=== PATIENT | female | born 1980 | race Native Hawaiian/Other Pacific Islander ===

== ENCOUNTER 2020-04-25 15:52 | Emergency (ER) | payer OTHER, SELFPAY ==
--- NOTE | ~2020-04-25 | CT_ITS ---
EXAMINATION: NONCONTRAST HEAD CT NONCONTRAST MAXILLOFACIAL CT NONCONTRAST CERVICAL SPINE CT INDICATION INFORMATION: Drinking. Fall. COMPARISON: None TECHNIQUE: Separate noncontrast CT examinations of the head, maxillofacial bones, and cervical spine were performed. Coronal and sagittal images were created for each examination at the technologist workstation. This CT examination was performed using dose optimization techniques as appropriate, variously including the following: *Automated exposure control *Adjustment of mA and/or kV according to patient size (this includes techniques or standardized protocols for targeted exams where dose is matched to indication/reason for exam; i.e. extremities or head) *Use of iterative reconstruction technique DLP: 1322 mGy-cm FINDINGS: Head: There is no evidence of acute intracranial hemorrhage or territorial infarction. No abnormal mass effect or midline shift is seen. [place] to white matter differentiation is well preserved. No extra-axial fluid collections are identified. No hydrocephalus. No significant volume loss. There is no abnormal attenuation within the brain parenchyma. No acute soft tissue abnormality. No calvarial fracture. The mastoid air cells are well aerated. Maxillofacial: There is left premaxillary soft tissue swelling. There is depression of the left lamina papyracea. No priors are available to compare for chronicity, but this is likely a chronic finding. The orbital rim appears intact. The pterygoid plates are intact. The zygomatic arches are intact. The nasal bone is intact. There is moderate opacification of the left maxillary sinus with severe opacification of the right maxillary sinus. The remaining paranasal sinuses are well aerated. The uncinate process is normal bilaterally. The infundibula are occluded bilaterally.. The nasal septum deviates to the right. The mandibular heads are well-seated in the condylar fossa. The orbits demonstrate a normal appearance bilaterally. The globes are intact, and there are no suspicious findings to suggest retrobulbar hemorrhage. Cervical spine: There is anatomic alignment of the vertebral bodies and posterior elements. The atlantoaxial and atlantooccipital articulations are intact. Vertebral body heights are maintained. There is mild disc space narrowing at C5-C6. Remaining disc spaces are maintained. No evidence of acute fracture. No prevertebral soft tissue swelling. Mild paraseptal emphysema at the lung apices.. The thyroid gland is unremarkable. CT/CT cervical spine wo con IMPRESSION: 1. No acute intracranial findings. 2. Left premaxillary soft tissue swelling. No definite acute maxillofacial fracture. There is depressed appearance of the left lamina papyracea which is likely chronic. 3. No fracture or malalignment of the cervical spine.
[2020-04-25 15:55] VITALS: BP 139/92; PULSE 88; RESP 16; TEMP 36.7; O2SAT 100; BMI 23.2
--- NOTE | 2020-04-25 16:08 | PC.NURSE ---
pt has been ambulatory in waiting area with steady gait and answers questions appropriately.
--- NOTE | 2020-04-25 22:35 | ED_ITS ---
HPI - General Adult General Chief complaint: ETOH/Substance Use Stated complaint: etoh Source: patient Mode of arrival: ambulatory Limitations: no limitations History of Present Illness HPI narrative: Patient presents to the ED for drinking alcohol. patient admits to drinking alcohol and falling unto her face. patient does not want detox. Patient denies any other complants. Related Data Allergies Allergy/AdvReac Type Severity Reaction Status Date / Time acetaminophen [From TYLENOL] Allergy Severe ANAPHYLAXIS Unverified 11/13/19 14:58 Penicillins [PENICILLINS] Allergy Severe HIVES Unverified 11/13/19 14:58 Review of Systems Review of Systems: Yes all other systems are reviewed and are negative Constitutional: Constitutional: Reports as per HPI and Reports no additional constitutional complaints Eyes: Eyes: Reports as per HPI and Reports no additional eye complaints Cardiovascular: Cardiovascular: Reports as per HPI and Reports no additional cardiovascular complaints Respiratory: Respiratory: Reports as per HPI and Reports no additional respiratory complaints Gastrointestinal: Gastrointestinal: Reports as per HPI and Reports no additional gastrointestinal complaints Genitourinary: Genitourinary: Reports no additional female genitourinary complaints and Reports as per HPI Musculoskeletal: Musculoskeletal: Reports no additional musculoskeletal complaints and Reports as per HPI Neurologic: Reports system reviewed and no additional complaints, except as documented and Reports as per HPI Psychiatric: Psychiatric: Reports no additional psychiatric complaints and Reports as per HPI PMF Past Medical History Medical History Seizures Skin cancer Social History Social History Alcohol intake: current Alcohol intake frequency: a few times a week Smoking Status: Unknown if ever smoked Use of substances other than those prescribed or required for medical reasons: Unknown Advance Directives: No Advance Directives Information Provided: No Physical Exam Vital Signs: Vital Signs: Last Vital Signs Temp 98.0 F 04/26/20 00:00 Pulse 84 04/26/20 00:00 Resp 16 04/26/20 00:00 BP 139/92 H 04/26/20 00:00 Pulse Ox 100 04/26/20 00:00 Body Mass Index 23.2 Const: General: cooperative, healthy appearing, comfortable, no acute distress, well developed, alert, awake and Physically active Orientation/consciousness: patient oriented x3 HENMT: Head: Yes normal to inspection, Yes No palpable skull fracture present, Yes normocephalic, Yes abrasion, No Badillo's sign, No contusion, No cranial bruits, No hematoma, No laceration, No occipital foramen tenderness, No palpable skull fracture, No raccoon eyes, No scalp lesion, No scalp tenderness, No Temporal artery tenderness present and No periorbital ecchymosis Ears: hearing grossly normal bilaterally, external ears normal and TM's normal bilaterally General nose exam: Normal external nose present and Normal nares present Face and sinus: Yes normal facial exam, Yes sinuses nontender and Yes face symmetric Throat: Yes posterior oropharynx normal, Yes tonsils normal and Yes uvula midline Eyes: General: appearance normal, both eyes and all related structures Neck: Neck: Yes normal visual inspection, Yes full ROM, Yes no lymphadenopathy, Yes no meningeal signs, Yes trachea midline, Yes supple and No tender Chest: Chest palpation & inspection: normal inspection of the chest and normal palpation of entire chest wall Resp: Effort & Inspection: normal respiratory effort and able to speak in complete sentences Cardio: Jugular venous distension: no JVD Heart sounds: S1 normal heart sound present and S2 normal heart sound present GI: Inspection: No abdominal wall ecchymosis Palpation (GI): Soft to palpation, not firm, nontender, no guarding and not rigid : General: No CVA tenderness and Yes no CVA tenderness Back/Spine/Pelvis: Back: no CVA tenderness, No CVA tenderness and No back tenderness Skin: General skin exam: no rashes or lesions noted and elasticity normal Neuro: General: patient oriented x3, no meningeal signs and CN's II-XI intact bilaterally Cranial nerves: Yes CN's II-XII intact bilaterally Extrem: General: Yes normal to inspection and Yes full ROM Psych: Appearance: grossly normal, well kempt and not disheveled Course Course Course Narrative: Will send patient to imaging to rule out any intracranial, cervical, or facial injury. Reevaluation(s) Reevaluation #1: images came back negative for any acute intracranial, facial, or cervical injury. patient presently is A0x3 and ready for discharge Time: 23:48 Reevaluation #2: patient was informed that she was discharged and than states she would like to recieve a covid test due to her ear pain and sore thorat. Case signed out to Dr. Suárez Time: 01:35 Medical Decision Making [facility] Narrative Medical decision making narrative: alcohol abuse Discharge Plan Discharge Clinical Impression: Alcohol abuse Patient Disposition: Home, Self-Care Instructions: Abuse of Alcohol (ED) Additional Instructions: Return to the ED for headache, dizziness, vomitting blood, abdominal pain, neck pain, rectal bleeding, chest pain, or any other concerning symptoms. Please follow up with PCP Referrals: Loyd Kulkarni DO, MD [Primary Care Provider] - 2 days (Alcohol abuse) Interventions: ED Discharge Assessment Last Done: 04/26/20 00:44 Print Language: Hungarian
[2020-04-26] VITALS: BP 139/92; PULSE 16; PULSE 84; RESP 16; TEMP 36.7; O2SAT 100
[2020-04-26 02:00] VITALS: RESP 14
[2020-04-26 03:43] LABS: COVID-19 Test Negative (Negative)
== END 2020-04-26 03:30 | disposition home or self-care (01) ==
PROVIDERS: Physician Assistant; Emergency Provider Internal Medicine; PCP Internal Medicine
DX: F10.10 Alcohol abuse, uncomplicated (principal); M54.2 Cervicalgia; R51.9 Headache, unspecified; G50.1 Atypical facial pain; Y90.9 Presence of alcohol in blood, level not specified; Z20.822 Contact with and (suspected) exposure to COVID-19
CPT/HCPCS: 36415; 70450; 70486; 72125; 87635; 99285

== ENCOUNTER 2020-05-29 10:32 | Emergency (ER) | payer OTHER, SELFPAY ==
[2020-05-29 11:10] VITALS: BP 136/97; PULSE 90; RESP 18; TEMP 37.1; O2SAT 97; BMI 27.3
--- NOTE | 2020-05-29 11:16 | ED.GENADULT ---
HPI - General Adult General Chief complaint: Extremity Problem Stated complaint: HANDS SWELLING Time Seen by Provider: 05/29/20 11:16 History of Present Illness HPI narrative: Patient complains of some intermittent mild swelling of both hands and both feet over past 3 days, she has 1 kidney and was not sure what is causing the swelling and wants to be checked, she denies fever denies chills denies calf pain or swelling denies shortness of breath, no other symptom or complaint except the intermittent hand and foot swelling Related Data Allergies Allergy/AdvReac Type Severity Reaction Status Date / Time acetaminophen [From TYLENOL] Allergy Severe ANAPHYLAXIS Unverified 11/13/19 14:58 Penicillins [PENICILLINS] Allergy Severe HIVES Unverified 11/13/19 14:58 Review of Systems Review of Systems: Positive for mild intermittent bilateral hand and foot swelling negatives are no fever no chills no dizziness no weakness no confusion no headache no neck pain no numbness weakness or tingling no chest pain no shortness of breath no abdominal pain no nausea or vomiting no changes to bowel or bladder there is no urinary frequency no burning with urination no incontinence, no rash, no numbness or weakness Yes all other systems are reviewed and are negative PMFSH Past Medical History Source: nursing notes reviewed Medical History (Updated 06/01/20 @ 00:01 by Lashonda Hammonds) Seizures Skin cancer Surgical History (Updated 05/29/20 @ 11:13 by Michael Galvez) History of nephrectomy, left Social History Social History Alcohol intake: unknown Smoking Status: Unknown if ever smoked Use of substances other than those prescribed or required for medical reasons: Unknown Advance Directives: Yes Advance Directives Information Provided: No Advance Directives on File: No Physical Exam Vital Signs: Vital Signs: Last Vital Signs Temp 98.7 F 05/29/20 11:10 Pulse 90 05/29/20 11:10 Resp 18 05/29/20 11:10 BP 136/97 H 05/29/20 11:10 Pulse Ox 97 05/29/20 11:10 Body Mass Index 27.3 General appearance is no acute distress, come and cooperative A&O x3 Head is normocephalic atraumatic Neck is supple and nontender The chest is clear to auscultation bilaterally The heart no murmur auscultated Abdomen soft nontender Extremities, swelling in hands and feet was not obvious to me there were both symmetrical hands and feet all joints had full range of motion, there is no redness no warmth, vascular was normal in both with symmetric pulses in both feet and both wrists, cap refill normal in both feet and both hands, sensation was full intact and symmetrical in both hands and feet, and motor function was full with 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 Result diagrams: 05/29/20 11:31 05/29/20 11:31 Labs: Lab Results 05/29/20 05/29/20 05/29/20 Range/Units 11:31 11:31 11:31 WBC 8.7 (4.8-10.8) X10*3/uL RBC 4.26 (4.20-5.50) X10*6/uL Hgb 13.8 (12.0-16.0) g/dl Hct 41.6 (37-47) % MCV 97.7 (80-98) fL MCH 32.4 (27.0-33.0) pg MCHC 33.2 (31.0-35.0) g/dl RDW 13.6 (11.0-16.0) % Plt Count 384 (160-400) X10*3/uL MPV 9.1 L (9.4-12.3) fL Immature Gran % (Auto) 0.1 (0.0-0.4) % Neut % (Auto) 63.0 (45-73) % Lymph % (Auto) 23.5 (20-40) % [place] % (Auto) 11.3 H (2-11) % Eos % (Auto) 1.2 (0-4) % Baso % (Auto) 0.9 (0-2) % Lymph # (Auto) 2.0 (1.2-4.9) X10*3/uL [place] # (Auto) 1.0 (0.1-1.2) X10*3/uL Eos # (Auto) 0.1 (0.0-0.4) X10*3/uL Baso # (Auto) 0.1 (0.0-0.2) X10*3/uL Abs Immat Gran (auto) 0.01 (0.00-0.03) X10*3/uL Absolute Neuts (auto) 5.5 (2.0-8.3) X10*3/uL Absolute Nucleated RBC 0.000 (0.0-0.012) X10*3/uL Nucleated RBC % (auto) 0.0 (0.0-0.2) /100WBC Sodium 133 L (135-145) mmol/L Potassium 4.4 (3.3-5.1) mmol/L Chloride 100 (96-108) mmol/L Carbon Dioxide 21 L (22-29) mmol/L Anion Gap 16 (12-20) BUN 10 (9-16) mg/dL Creatinine 0.82 (0.5-1.4) mg/dL Estim Creat Clear Calc 75.1 Estimated GFR > 60 Random Glucose 69 (60-115) mg/dL Calcium 9.6 (8.4-10.2) mg/dL Total Bilirubin 0.5 (0.0-1.0) mg/dL Direct Bilirubin < 0.2 (0.0-0.5) mg/dL AST 43 H (5-31) U/L ALT 24 (0-31) U/L Alkaline Phosphatase 84 (39-117) U/L Total Protein 7.3 (6.5-8.0) g/dL Albumin 4.3 (3.5-5.0) g/dL Urine Test NEGATIVE (NEGATIVE) Discharge Plan Discharge Clinical Impression: Bilateral swelling of feet, Bilateral hand swelling Patient Disposition: Home, Self-Care Additional Instructions: Testing today showed normal kidney function, normal liver function and no acute abnormality to explain the intermittent swelling Her exam today was normal and there does not seem to be anything dangerous or emergent today Follow routinely with her doctor Return to ER any time any worse condition or any concerns Discharge Date/Time: 05/29/20 12:29
[2020-05-29 11:36] LABS: MANUAL DIFF FLAG NO
[2020-05-29 11:39] LABS: Basophils Absolute Auto 0.1 X10*3/uL (0.0-0.2); Basophils Percent Auto 0.9 % (0-2); Eosinophils Absolute Auto 0.1 X10*3/uL (0.0-0.4); Eosinophils Percent Auto 1.2 % (0-4); Hematocrit 41.6 % (37-47); Hemoglobin 13.8 g/dl (12.0-16.0); Imm Gran Abs Auto 0.01 X10*3/uL (0.00-0.03); Imm Gran Pct Auto 0.1 % (0.0-0.4); Lymphocytes Percent Auto 23.5 % (20-40); Mean Corpuscular HGB Conc 33.2 g/dl (31.0-35.0); Mean Corpuscular Hemoglobin 32.4 pg (27.0-33.0); Mean Corpuscular Volume 97.7 fL (80-98); Mean Platelet Volume 9.1 fL (9.4-12.3); Monocytes Percent Auto 11.3 % (2-11); Neutrophils Absolute Auto 5.5 X10*3/uL (2.0-8.3); Platelet Count 384 X10*3/uL (160-400); Red Blood Count 4.26 X10*6/uL (4.20-5.50); Red Cell Distribution Width 13.6 % (11.0-16.0); White Blood Count 8.7 X10*3/uL (4.8-10.8)
[2020-05-29 11:40] LABS: UPreg QC Valid YES; Urine Pregnancy NEGATIVE (NEGATIVE)
[2020-05-29 12:08] LABS: Alanine Aminotransferase 24 U/L (0-31); Albumin Level 4.3 g/dL (3.5-5.0); Alkaline Phosphatase 84 U/L (39-117); Anion Gap 16 (12-20); Aspartate Amino Transferase 43 U/L (5-31); Bilirubin Direct < 0.2 mg/dL (0.0-0.5); Bilirubin Total 0.5 mg/dL (0.0-1.0); Blood Urea Nitrogen 10 mg/dL (9-16); Calcium 9.6 mg/dL (8.4-10.2); Carbon Dioxide 21 mmol/L (22-29); Chloride 100 mmol/L (96-108); Creatinine Clr Calc Pharmacy 75.1; Estimated Glomerular Filt Rate > 60; Glucose Random 69 mg/dL (60-115); Potassium 4.4 mmol/L (3.3-5.1); Sodium 133 mmol/L (135-145); Total Protein 7.3 g/dL (6.5-8.0)
== END 2020-05-29 12:29 | disposition home or self-care (01) ==
PROVIDERS: Physician Assistant Medical; Emergency Provider Emergency Medicine
DX: M79.89 Other specified soft tissue disorders (principal); Z90.5 Acquired absence of kidney; Z85.828 Personal history of other malignant neoplasm of skin
CPT/HCPCS: 36415; 80048; 80076; 81025; 85025; 99283

== ENCOUNTER 2020-09-18 12:44 | Observation (INO) | payer OTHER, SELFPAY ==
--- NOTE | ~2020-09-18 | US_ITS ---
EXAMINATION: US ABDOMEN LIMITED CLINICAL INFORMATION: Abnormal liver function tests. COMPARISON: No priors. TECHNIQUE: Real-time imaging of the right upper quadrant abdominal viscera. FINDINGS: PANCREAS: Obscured by bowel gas. LIVER: The liver is normal in size. The liver contour is normal. Parenchymal echogenicity is mildly increased. No focal hepatic lesion. There is no intrahepatic biliary duct dilatation seen. GALLBLADDER: Normal. The gallbladder is physiologically distended without evidence of stones, sludge, polyps, wall thickening or pericholecystic fluid. COMMON BILE DUCT: Normal in caliber measuring 0.2 cm in diameter. RIGHT KIDNEY: Normal. No hydronephrosis. No renal calculi or focal parenchymal lesions. The kidney measures 12.5 cm in maximum dimension. FREE FLUID: None. US/US abdomen limited IMPRESSION: --Mildly increased hepatic parenchymal echogenicity which may reflect steatotic changes. --Normal sonographic appearance of the gallbladder. No intrahepatic or extra hepatic biliary ductal dilation.
[2020-09-18 12:51] VITALS: PULSE 77; RESP 18; TEMP 36.6; O2SAT 99; BMI 28.3
--- NOTE | 2020-09-18 14:49 | ED.GENADULT ---
HPI - General Adult General Chief complaint: Recheck/Abnormal Lab/Rx Stated complaint: liver issue Time Seen by Provider: 09/18/20 14:35 Source: patient Mode of arrival: ambulatory Limitations: no limitations History of Present Illness HPI narrative: 40-year-old female with long history of alcohol abuse, patient just discharged from rehab (last drink was 7 days ago). Patient had labs was done at outside facility showed abnormal LFTs, patient was concerned come back again today to check on her liver function test. Patient otherwise decline headache, chest pain, abdominal pain, nausea, or vomiting. No fever or chills. Related Data Allergies Allergy/AdvReac Type Severity Reaction Status Date / Time acetaminophen [From TYLENOL] Allergy Severe ANAPHYLAXIS Unverified 11/13/19 14:58 Penicillins [PENICILLINS] Allergy Severe HIVES Unverified 11/13/19 14:58 Review of Systems Review of Systems: All other systems are reviewed and are negative Constitutional: Reports as per HPI and Reports no additional constitutional complaints Eyes: Reports as per HPI and Reports no additional eye complaints Reports system reviewed and no additional complaints, except as documented Cardiovascular: Reports as per HPI and Reports no additional cardiovascular complaints Respiratory: Reports as per HPI and Reports no additional respiratory complaints Gastrointestinal: Reports as per HPI and Reports no additional gastrointestinal complaints Genitourinary: Reports no additional female genitourinary complaints Musculoskeletal: Reports no additional musculoskeletal complaints Skin/Breast: Reports system reviewed and no additional complaints, except as docu Psychiatric: Reports no additional psychiatric complaints Endocrine: Reports no additional endocrine complaints Hematologic/Lymphatic: Reports no additional hematologic/lymphatic complaints Allergic/Immunologic: Reports no additional allergic/immunologic complaints Reports system reviewed and no additional complaints, except as documented and Reports Abnormal speech present [facility] Past Medical History Medical History Seizures Skin cancer Surgical History History of nephrectomy, left Social History Social History Alcohol intake: unknown Advance Directives: No Advance Directives Information Provided: Yes Patient : No Physical Exam Vital Signs: Vital Signs: Last Vital Signs Temp 97.6 F 09/18/20 15:41 Pulse 68 09/18/20 15:41 Resp 20 09/18/20 15:41 BP 123/85 09/18/20 15:41 Pulse Ox 100 09/18/20 15:41 Body Mass Index 28.3 Vital signs have been reviewed as appeared to be correct. Blood pressure normal. Heart rate normal. Respiration rate normal. Temperature normal. Oxygen saturation normal. Appearance: Alert. Oriented X3. No acute distress. Head: Normal external exam. Normocephalic. Atraumatic. No Badillo signs noted. No raccoon eyes noted Eyes: PERRLA. EOMI. Conjunctiva and sclera normal. Eyelids normal. ENT: TM's Normal. Pharynx normal. Uvula midline. Moist mucous membranes. No trismus noted. No drooling noted. No muffled voice noted. Neck: Normal inspection. Neck supple. FROM. No adenopathy. Thyroid Normal. No meningeal signs. No neck mass noted. CVS: Normal heart rate and rhythm. Heart sound normal. No murmurs noted. Pulses normal throughout. Respiratory: No respiratory distress. Painless inspiration. Breath sounds normal. No wheezes/rales/rhonchi noted. Chest nontender. No accessory muscle usage noted or decreased air movement noted. Abdomen: Soft and nontender. Bowel sounds normal in all 4 quadrants. No distention noted. No organomegaly noted. No visible injury noted. Back: No CVA tenderness. Full range of motion noted. Skin: Skin warm and dry. Normal skin color. Normal skin turgor. No rashes/lesions/lacerations noted. Extremities: No lower extremity edema. Extremities exhibit normal range of motion. Extremities nontender. Neuro: Oriented X 3. No motor deficit. No sensory deficit. Reflexes normal. Course Course Course Narrative: Assessment and plan. 40-year-old female former alcohol abuser with acute transaminitis, ultrasound mildly increased hepatic parenchymal echogenicity, will admit the patient for further evaluation and inpatient GI consultation. Medical Decision Making Lab Data Lab results reviewed: Yes I reviewed the patient's lab results. Result diagrams: 09/18/20 15:15 09/18/20 15:15 Labs: Lab Results 09/18/20 09/18/20 Range/Units 15:15 15:15 WBC 9.0 (4.8-10.8) X10*3/uL RBC 3.83 L (4.20-5.50) X10*6/uL Hgb 13.6 (12.0-16.0) g/dl Hct 41.0 (37-47) % MCV 107.0 H (80-98) fL MCH 35.5 H (27.0-33.0) pg MCHC 33.2 (31.0-35.0) g/dl RDW 15.1 (11.0-16.0) % Plt Count 383 (160-400) X10*3/uL MPV 10.2 (9.4-12.3) fL Immature Gran % (Auto) Cancelled Neut % (Auto) Cancelled Lymph % (Auto) Cancelled Roberts % (Auto) Cancelled Eos % (Auto) Cancelled Baso % (Auto) Cancelled Lymph # (Auto) Cancelled [place] # (Auto) Cancelled Eos # (Auto) Cancelled Baso # (Auto) Cancelled Abs Immat Gran (auto) Cancelled Absolute Neuts (auto) Cancelled Absolute Nucleated RBC 0.000 (0.0-0.012) X10*3/uL Nucleated RBC % (auto) 0.0 (0.0-0.2) /100WBC Sodium 138 (135-145) mmol/L Potassium 5.2 H (3.3-5.1) mmol/L Chloride 104 (96-108) mmol/L Carbon Dioxide 25 (22-29) mmol/L Anion Gap 14 (12-20) BUN 17 H D (9-16) mg/dL Creatinine 1.01 (0.5-1.4) mg/dL Estim Creat Clear Calc 58.7 Estimated GFR > 60 Random Glucose 87 (60-115) mg/dL Calcium 11.0 H D (8.4-10.2) mg/dL Total Bilirubin 0.8 (0.0-1.0) mg/dL Direct Bilirubin 0.6 H (0.0-0.5) mg/dL AST 1433 H (5-31) U/L ALT 1131 H (0-31) U/L Alkaline Phosphatase 331 H D (39-117) U/L Total Protein 7.4 (6.5-8.0) g/dL Albumin 4.4 (3.5-5.0) g/dL Lipase 60 (8-78) U/L Imaging Data US - abdomen: Radiologist's impression: -Mildly increased hepatic parenchymal echogenicity which may reflect steatotic changes. --Normal sonographic appearance of the gallbladder. No intrahepatic or extra hepatic biliary ductal dilation. Discharge Plan Discharge Clinical Impression: Transaminitis Patient Disposition: Admitted As Inpatient
[2020-09-18] MEDS: 0.9 % Sodium Chloride 1,000 ML 999 ML IVCONT (15:17)
[2020-09-18 15:20] LABS: Hemoglobin 13.6 g/dl (12.0-16.0); Mean Corpuscular HGB Conc 33.2 g/dl (31.0-35.0); Mean Corpuscular Hemoglobin 35.5 pg (27.0-33.0); Mean Platelet Volume 10.2 fL (9.4-12.3); Platelet Count 383 X10*3/uL (160-400); Red Blood Count 3.83 X10*6/uL (4.20-5.50); Red Cell Distribution Width 15.1 % (11.0-16.0)
[2020-09-18 15:41] VITALS: BP 123/85; PULSE 68; RESP 20; TEMP 36.4; O2SAT 100
[2020-09-18 16:14] LABS: Albumin Level 4.4 g/dL (3.5-5.0); Alkaline Phosphatase 331 U/L (39-117); Anion Gap 14 (12-20); Bilirubin Direct 0.6 mg/dL (0.0-0.5); Bilirubin Total 0.8 mg/dL (0.0-1.0); Blood Urea Nitrogen 17 mg/dL (9-16); Carbon Dioxide 25 mmol/L (22-29); Chloride 104 mmol/L (96-108); Creatinine Clr Calc Pharmacy 58.7; Estimated Glomerular Filt Rate > 60; Glucose Random 87 mg/dL (60-115); Lipase 60 U/L (8-78); Potassium 5.2 mmol/L (3.3-5.1); Sodium 138 mmol/L (135-145); Total Protein 7.4 g/dL (6.5-8.0)
[2020-09-18 16:25] LABS: Alanine Aminotransferase 1131 U/L (0-31); Aspartate Amino Transferase 1433 U/L (5-31)
[2020-09-18 16:29] LABS: Atypical Lymph Absolute Manual 1.1 x10*3/uL; Atypical Lymphs Percent Manual 12 % (0-6); Band Neutrophils Percent 1 % (3-5); Basophils Abs Manual 0.5 X10*3/uL (0.0-0.3); Basophils Percent Manual 5 % (0-1); Eosinophils Absolute Manual 0.5 X10*3/UL (0.0-0.8); Eosinophils Percent Manual 6 % (0-4); Lymphocytes Absolute Manual 3.3 X10*3/uL (0.6-4.8); Lymphocytes Percent Manual 37 % (20-40); Monocytes Absolute Manual 0.9 X10*3/uL (0.0-1.2); Monocytes Percent Manual 10 % (2-11); Neutrophils Absolute Manual 2.7 X10*3/uL (2.2-7.9); Neutrophils Percent Manual 29 % (45-73)
[2020-09-18 16:30] LABS: RBC Morphology NOTED; Smudge Cells PRESENT; Toxic Vacuolation PRESENT
[2020-09-18 16:31] LABS: Microcytosis 1+ (5-14) /OIF; Stomatocytes 1+ (5-14) /OIF
[2020-09-18 16:35] LABS: Schistocytes 1+ (0-2) /OIF
[2020-09-18 16:38] LABS: Platelet Estimate SLIGHTLY INCREASED (NORMAL); Platelet Morphology Comment NORM
--- NOTE | 2020-09-18 16:47 | PM.IMHP ---
Assessment and Plan (1) Alcoholic hepatitis: Status: Acute (2) Hepatic steatosis: Status: Acute (3) Transaminitis: Status: Acute 40/F with alcoholic liver disease with elevated LFTs consistent with alcoholic hepatitis plan: Hydrate, check INR, repeat labs in the morning, avoid hepatotoxin, hepatitis serology, GI consult. History of Present Illness Date of Service: 09/18/20 Chief Complaint: Elevated LFTs 40 year female with history of melanoma, chronic alcohol dependecy drinks about a sleeve day. She has been at an alcoholic rehab in [place] and was told that her liver labs are getting worse and they could not deal with there and was sent to come to ED. She has been at the rehab for more than a week and has not drank in about 9 days. She has mild painin the right upper quadrant area. Lab work show AST of 1433, ALT 1131 and AK 331, total bili 0.6, normal lipase. On September 10 and alk-phos was 296, ALT was 666, AST was 295 and bilirubin was 2.1. On September 13 AST was 535, ALT was 319, alk phos was 207 and total bilirubin was 1.1. On September 16 ALT was 528 AST was 396 and alk phos was 198, bilirubin 0.6. She had hepatitis AB and C serology done on September 06 and was negative. US of the liver today shows: --Mildly increased hepatic parenchymal echogenicity which may reflect steatotic changes. --Normal sonographic appearance of the gallbladder. No intrahepatic or extra hepatic biliary ductal dilation. No fever, INR was not checked. Her medications include Abilify, Trazadone, Hydroxyzine, and Gabapentin, she has not been taken Tylenol Review of Systems Review of Systems: Gen: no fever Resp: no sob, no cough CV: no chest, no COPE, no leg edema GI: No n/v, no abd pain, mild pain Neuro: No confusion REPLACED BY [facility] Medical History (Updated 09/18/20 @ 17:16 by Holger Aguilar MD) Hepatic steatosis Melanoma Seizures Skin cancer Unilateral agenesis of kidney Family history: reviewed and not pertinent Social History (Updated 09/18/20 @ 16:50 by Holger Aguilar MD) Alcohol intake: unknown Patient Tobacco Use Status: Current everyday Tobacco user Cigarette Packs Per Day: 10 Advance Directives: No Advance Directives Information Provided: Yes Patient : No Meds Allergies Allergy/AdvReac Type Severity Reaction Status Date / Time acetaminophen [From TYLENOL] Allergy Severe ANAPHYLAXIS Unverified 11/13/19 14:58 Penicillins [PENICILLINS] Allergy Severe HIVES Unverified 11/13/19 14:58 Home Medications Medication Instructions Recorded Confirmed Last Taken Type aripiprazole 1 tab PO BEDTIME 09/18/20 09/18/20 Unknown History escitalopram oxalate 1 tab PO DAILY 09/18/20 09/18/20 Unknown History gabapentin 1 cap PO BID 09/18/20 09/18/20 Unknown History hydroxyzine HCl 1 tab PO BID PRN 09/18/20 09/18/20 Unknown History trazodone 2 tab PO BEDTIME PRN 09/18/20 09/18/20 Unknown History Physical Exam Vital Signs and Narrative: Vital Signs: Last Vital Signs Temp 97.6 F 09/18/20 15:41 Pulse 68 09/18/20 15:41 Resp 20 09/18/20 15:41 BP 123/85 09/18/20 15:41 Pulse Ox 100 09/18/20 15:41 Body Mass Index 28.3 Const: Other: Constitutional Awake and Alert, No apparent distress HEENT: normal sclear Neck Supple, No lymphadenopathy Cardiovascular RRR, No M/R/G, S1 S2, No S3 S4, No pedal edema Respiratory Lungs clear, No respiratory distress Gastrointestinal mild ruq tenternessr, Non-distended Skin No rash Neurological Alert & oriented x3 Psychological Appropriate affect Results Labs CBC and Chem 7: 09/18/20 15:15 09/18/20 15:15 Labs: Laboratory Results - last 24 hr 09/18/20 09/18/20 15:15 15:15 MCV 107.0 H MCH 35.5 H MCHC 33.2 RDW 15.1 Plt Count 383 MPV 10.2 Immature Gran % (Auto) Cancelled Neut % (Auto) Cancelled Lymph % (Auto) Cancelled Page % (Auto) Cancelled Eos % (Auto) Cancelled Baso % (Auto) Cancelled Lymph # (Auto) Cancelled Page # (Auto) Cancelled Eos # (Auto) Cancelled Baso # (Auto) Cancelled Abs Immat Gran (auto) Cancelled Absolute Neuts (auto) Cancelled Absolute Nucleated RBC 0.000 Nucleated RBC % (auto) 0.0 Neutrophils % (Manual) 29 L Band Neutrophils % 1 L Lymphocytes % (Manual) 37 Atypical Lymphs % (Man) 12 H Monocytes % (Manual) 10 Eosinophils % (Manual) 6 H Basophils % (Manual) 5 H Abs Neuts (Manual) 2.7 Lymphocytes # (Manual) 3.3 Atyp Lymphs # (Manual) 1.1 Monocytes # (Manual) 0.9 Eosinophils # (Manual) 0.5 Basophils # (Manual) 0.5 H Smudge Cells PRESENT Toxic Vacuolation PRESENT Platelet Estimate SLIGHTLY INCREASED Plt Morphology Comment NORM RBC Morphology NOTED Microcytosis 1+ (5-14) Stomatocytes 1+ (5-14) Schistocytes 1+ (0-2) Anion Gap 14 Estim Creat Clear Calc 58.7 Estimated GFR > 60 Random Glucose 87 Calcium 11.0 H D Total Bilirubin 0.8 Direct Bilirubin 0.6 H AST 1433 H ALT 1131 H Alkaline Phosphatase 331 H D Total Protein 7.4 Albumin 4.4 Lipase 60 Imaging Radiologist's Impressions: Impressions Abdomen Ultrasound 09/18/20 14:39 IMPRESSION: --Mildly increased hepatic parenchymal echogenicity which may reflect steatotic changes. --Normal sonographic appearance of the gallbladder. No intrahepatic or extra hepatic biliary ductal dilation. Quality Stroke Does the patient have a stroke diagnosis?: No VTE Prior VTE?: No VTE Risk Level:: Medical - low VTE Device Contraindication: N/A - Device Ordered VTE Drug Contraindication: N/A - Med Ordered
[2020-09-18 17:05] VITALS: BP 112/86; PULSE 77; RESP 20; TEMP 36.4; O2SAT 98
[2020-09-18 18:05] LABS: Prothrombin Time 11.1 SEC (9.9-13.0)
[2020-09-18 18:14] LABS: Ethanol < 10 mg/dL
[2020-09-18 18:17] LABS: Acetaminophen LAB < 1 mcg/mL (<30)
[2020-09-18] MEDS: Dextrose 5 % and 0.45 % NaCl 1,000 ML 100 ML IVCONT (18:26)
[2020-09-18 18:32] LABS: Partial Thromboplastin Time 34.8 SEC (24.1-38.0)
[2020-09-18 19:36] VITALS: BP 123/91; PULSE 91; RESP 18; TEMP 36.5; O2SAT 100
[2020-09-18] MEDS: hydrOXYzine HCL 25 MG TABLET PO (20:03)
[2020-09-18 20:50] LABS: Prothrombin Time 11.3 SEC (9.9-13.0)
[2020-09-18 20:58] LABS: COVID-19 Test Negative (Negative)
--- NOTE | 2020-09-19 00:17 | PM.EVENT ---
Event Note Date of Service: 09/19/20 Event Note: Against medical advice note: RN mentioned the patient mentally AMA. I went in to speak to the patient, explained the risks involved which may even lead to worsening current condition and can lead to ; may patient verbalized back that she understood the risks and she still wants to leave against medical advice. Patient also mentioned that she will go to the [facility] straight from here; Patient is mentating well; has complete insight into her current medical condition.
--- NOTE | 2020-09-19 10:17 | P.DS_ITS ---
DS: Providers Provider Date of Service: 09/19/20 Date of admission: 09/18/20 16:38 Primary care physician: Loyd Kulkarni DO, MD DS: Diagnosis Discharge Diagnosis (1) Alcoholic hepatitis: Status: Acute (2) Hepatic steatosis: Status: Acute (3) Transaminitis: Status: Acute DS: Medications Discharge Medications Home Medications: Home Medications Medication Instructions Recorded Confirmed aripiprazole 1 tab PO BEDTIME 09/18/20 09/18/20 escitalopram oxalate 1 tab PO DAILY 09/18/20 09/18/20 gabapentin 1 cap PO BID 09/18/20 09/18/20 hydroxyzine HCl 1 tab PO BID PRN 09/18/20 09/18/20 trazodone 2 tab PO BEDTIME PRN 09/18/20 09/18/20 DS: Summary Hospital Course Hospital Course: Date of admission: 09/18/20 Chief Complaint: Elevated LFTs 40 year female with history of melanoma, chronic alcohol dependecy drinks about a sleeve day. She has been at an alcoholic rehab in [place] and was told that her liver labs are getting worse and they could not deal with there and was sent to come to ED. She has been at the rehab for more than a week and has not drank in about 9 days. She has mild painin the right upper quadrant area. Lab work show AST of 1433, ALT 1131 and AK 331, total bili 0.6, normal lipase. On September 10 and alk-phos was 296, ALT was 666, AST was 295 and bilirubin was 2.1. On September 13 AST was 535, ALT was 319, alk phos was 207 and total bilirubin was 1.1. On September 16 ALT was 528 AST was 396 and alk phos was 198, bilirubin 0.6. She had hepatitis AB and C serology done on September 06 and was negative. US of the liver today shows: --Mildly increased hepatic parenchymal echogenicity which may reflect steatotic changes. --Normal sonographic appearance of the gallbladder. No intrahepatic or extra hepatic biliary ductal dilation. No fever, INR was not checked. Her medications include Abilify, Trazadone, Hydroxyzine, and Gabapentin, she has not been taken Tylenol Hospital course: She left AMA around midnight. See covering MD note Final Diagnosis: alcoholic hepaitis Transaminitis Steatohepatitis Time Spent with Patient Time attestation: Total time spent providing and/or coordinating discharge services: Discharge coordination time: Less than 30 minutes Quality: Stroke Does the patient have a stroke diagnosis?: No Physical Exam Vital Signs: Vital Signs: Last Vital Signs Temp 97.7 F 09/18/20 19:36 Pulse 91 09/18/20 19:36 Resp 18 09/18/20 19:36 BP 123/91 H 09/18/20 19:36 Pulse Ox 100 09/18/20 19:36 Body Mass Index 28.3 DS: Data Data Completed and Pending Labs on day of discharge: Laboratory Results - last 24 hr 09/18/20 09/18/20 09/18/20 15:15 15:15 17:42 WBC 9.0 RBC 3.83 L Hgb 13.6 Hct 41.0 MCV 107.0 H MCH 35.5 H MCHC 33.2 RDW 15.1 Plt Count 383 MPV 10.2 Immature Gran % (Auto) Cancelled Neut % (Auto) Cancelled Lymph % (Auto) Cancelled [place] % (Auto) Cancelled Eos % (Auto) Cancelled Baso % (Auto) Cancelled Lymph # (Auto) Cancelled [place] # (Auto) Cancelled Eos # (Auto) Cancelled Baso # (Auto) Cancelled Abs Immat Gran (auto) Cancelled Absolute Neuts (auto) Cancelled Absolute Nucleated RBC 0.000 Nucleated RBC % (auto) 0.0 Neutrophils % (Manual) 29 L Band Neutrophils % 1 L Lymphocytes % (Manual) 37 Atypical Lymphs % (Man) 12 H Monocytes % (Manual) 10 Eosinophils % (Manual) 6 H Basophils % (Manual) 5 H Abs Neuts (Manual) 2.7 Lymphocytes # (Manual) 3.3 Atyp Lymphs # (Manual) 1.1 Monocytes # (Manual) 0.9 Eosinophils # (Manual) 0.5 Basophils # (Manual) 0.5 H Smudge Cells PRESENT Toxic Vacuolation PRESENT Platelet Estimate SLIGHTLY INCREASED Plt Morphology Comment NORM RBC Morphology NOTED Microcytosis 1+ (5-14) Stomatocytes 1+ (5-14) Schistocytes 1+ (0-2) PT INR APTT Sodium 138 Potassium 5.2 H Chloride 104 Carbon Dioxide 25 Anion Gap 14 BUN 17 H D Creatinine 1.01 Estim Creat Clear Calc 58.7 Estimated GFR > 60 Random Glucose 87 Calcium 11.0 H D Total Bilirubin 0.8 Direct Bilirubin 0.6 H AST 1433 H ALT 1131 H Alkaline Phosphatase 331 H D Total Protein 7.4 Albumin 4.4 Lipase 60 Acetaminophen < 1 Ethyl Alcohol COVID-19 ([facility]) COVID-19 Clin Com 09/18/20 09/18/20 09/18/20 17:42 17:42 20:36 WBC RBC Hgb Hct MCV MCH MCHC RDW Plt Count MPV Immature Gran % (Auto) Neut % (Auto) Lymph % (Auto) [place] % (Auto) Eos % (Auto) Baso % (Auto) Lymph # (Auto) [place] # (Auto) Eos # (Auto) Baso # (Auto) Abs Immat Gran (auto) Absolute Neuts (auto) Absolute Nucleated RBC Nucleated RBC % (auto) Neutrophils % (Manual) Band Neutrophils % Lymphocytes % (Manual) Atypical Lymphs % (Man) Monocytes % (Manual) Eosinophils % (Manual) Basophils % (Manual) Abs Neuts (Manual) Lymphocytes # (Manual) Atyp Lymphs # (Manual) Monocytes # (Manual) Eosinophils # (Manual) Basophils # (Manual) Smudge Cells Toxic Vacuolation Platelet Estimate Plt Morphology Comment RBC Morphology Microcytosis Stomatocytes Schistocytes PT 11.1 INR 1.0 APTT 34.8 Sodium Potassium Chloride Carbon Dioxide Anion Gap BUN Creatinine Estim Creat Clear Calc Estimated GFR Random Glucose Calcium Total Bilirubin Direct Bilirubin AST ALT Alkaline Phosphatase Total Protein Albumin Lipase Acetaminophen Ethyl Alcohol < 10 COVID-19 ([facility]) Negative COVID-19 Clin Com See Note 09/18/20 20:36 WBC RBC Hgb Hct MCV MCH MCHC RDW Plt Count MPV Immature Gran % (Auto) Neut % (Auto) Lymph % (Auto) [place] % (Auto) Eos % (Auto) Baso % (Auto) Lymph # (Auto) [place] # (Auto) Eos # (Auto) Baso # (Auto) Abs Immat Gran (auto) Absolute Neuts (auto) Absolute Nucleated RBC Nucleated RBC % (auto) Neutrophils % (Manual) Band Neutrophils % Lymphocytes % (Manual) Atypical Lymphs % (Man) Monocytes % (Manual) Eosinophils % (Manual) Basophils % (Manual) Abs Neuts (Manual) Lymphocytes # (Manual) Atyp Lymphs # (Manual) Monocytes # (Manual) Eosinophils # (Manual) Basophils # (Manual) Smudge Cells Toxic Vacuolation Platelet Estimate Plt Morphology Comment RBC Morphology Microcytosis Stomatocytes Schistocytes PT 11.3 INR 1.0 APTT 34.0 Sodium Potassium Chloride Carbon Dioxide Anion Gap BUN Creatinine Estim Creat Clear Calc Estimated GFR Random Glucose Calcium Total Bilirubin Direct Bilirubin AST ALT Alkaline Phosphatase Total Protein Albumin Lipase Acetaminophen Ethyl Alcohol COVID-19 ([facility]) COVID-19 Clin Com Discharge Plan Discharge Anticipated Discharge Date/Time: 09/19/20 10:20 Patient Disposition: Left Against Medical Advice Referrals: Loyd Kulkarni DO, MD [Primary Care Provider] - 1 Week Discharge Medications: No Action trazodone 50 mg tablet 2 tab PO BEDTIME PRN (Reason: Insomnia) RF: 0 gabapentin 300 mg capsule 1 cap PO BID RF: 0 hydroxyzine HCl 25 mg tablet 1 tab PO BID PRN (Reason: Hypertension) RF: 0 escitalopram oxalate 20 mg tablet 1 tab PO DAILY RF: 0 aripiprazole 2 mg tablet 1 tab PO BEDTIME RF: 0 Discharge Orders: Discharge Order (Routine); Ordered 09/19/20 Ordered By: Holger [facility] Care Plan Goals: Left AMA Health Concerns: Left AMA Plan of Treatment: Left AMA Assessment: Left AMA
[2020-09-20 03:46] LABS: HBc Num1 0.06 S/CO (0.00-0.79); HBsAGNum1 0.11 S/CO (0.00-0.99); Hepatitis B Core Antibody Nonreactive (Nonreactive); Hepatitis B Surface Antigen Negative (Negative)
[2020-09-20 03:53] LABS: ~HepC Num1 0.89 S/CO (0.00-0.79); ~Hepatitis B Surface Antibody NONREACTIVE (Nonreactive)
[2020-09-20 04:50] LABS: ~HepC Num2 0.93; ~HepC Num3 0.91; ~Hepatitis C Antibody GRAYZONE (Nonreactive)
[2020-09-22 12:17] LABS: Hepatitis A Antibody IgM 0.16 Index (0-0.79); ~Hepatitis A Antibody IgM Nonreactive (Nonreactive)
== END 2020-09-19 00:31 | disposition left against medical advice (07) ==
LOC: HO.ED 16:37 → HO.EDOVER 16:59
PROVIDERS: Emergency Medicine; Admitting Provider Internal Medicine; Emergency Provider Emergency Medicine; PCP Internal Medicine; Visit Provider Internal Medicine
DX: K70.10 Alcoholic hepatitis without ascites (principal); K76.0 Fatty (change of) liver, not elsewhere classified; R74.01 Elevation of levels of liver transaminase levels; R94.5 Abnormal results of liver function studies; R56.9 Unspecified convulsions; F17.210 Nicotine dependence, cigarettes, uncomplicated; F10.10 Alcohol abuse, uncomplicated; Y90.0 Blood alcohol level of less than 20 mg/100 ml; Z20.822 Contact with and (suspected) exposure to COVID-19; Z85.820 Personal history of malignant melanoma of skin; Z90.5 Acquired absence of kidney; Z88.6 Allergy status to analgesic agent; Z88.0 Allergy status to penicillin; Z79.899 Other long term (current) drug therapy
CPT/HCPCS: 36415; 76705; 80048; 80076; 80143; 82077; 83690; 85007; 85027; 85610; 85730; 86704; 86706; 86709; 86803; 87340; 87635; 96361; 96365; 96366; 99219; 99284; 99285

== ENCOUNTER 2020-11-11 22:11 | Emergency (ER) | payer OTHER, SELFPAY ==
--- NOTE | ~2020-11-11 | XR_ITS ---
EXAMINATION: XR ANKLE, LEFT CLINICAL INFORMATION: Status post fall COMPARISON: None TECHNIQUE: Two views of the left ankle. FINDINGS: There is an oblique fracture of the distal fibular diaphysis, approximately 5 cm above the level of the tibial plafond, with approximately one half shaft width lateral and anterior displacement of the distal fragment. Displaced fracture of the medial malleolus is also noted. Ankle mortise appears grossly preserved. There is prominent soft tissue swelling at the ankle. XR/XR ankle LT 2V IMPRESSION: Fractures of the medial malleolus and distal fibular diaphysis as described above with surrounding soft tissue swelling.
[2020-11-11 22:31] VITALS: BP 106/76; PULSE 90; RESP 16; TEMP 36.5; O2SAT 98; BMI 30.2
[2020-11-11 22:38] VITALS: BP 106/76; PULSE 91; RESP 16; TEMP 36.5; O2SAT 98
--- NOTE | 2020-11-11 22:58 | ED_ITS ---
HPI - Extremity Injury (Lower) General Chief Complaint: Extremity Injury, Lower Stated Complaint: left ankle pain ? fx etoh Time Seen by Provider: 11/11/20 22:54 Source: patient Mode of arrival: ambulatory Limitations: no limitations History of Present Illness HPI Narrative: Patient will entering the house through the window fell about 3 ft to the ground complaining of increased pain with swelling and deformity to the left ankle no other injuries Related Data Home Medications Medication Instructions Recorded Confirmed aripiprazole 2 mg tablet 1 tab PO BEDTIME 09/18/20 09/18/20 escitalopram oxalate 20 mg tablet 1 tab PO DAILY 09/18/20 09/18/20 gabapentin 300 mg capsule 1 cap PO BID 09/18/20 09/18/20 hydroxyzine HCl 25 mg tablet 1 tab PO BID PRN 09/18/20 09/18/20 trazodone 50 mg tablet 2 tab PO BEDTIME PRN 09/18/20 09/18/20 Previous Rx's Medication Instructions Recorded oxycodone 5 mg tablet 5 mg PO Q6H PRN #20 tab 11/12/20 Allergies Allergy/AdvReac Type Severity Reaction Status Date / Time acetaminophen [From TYLENOL] Allergy Severe ANAPHYLAXIS Verified 11/11/20 22:48 Penicillins [PENICILLINS] Allergy Severe HIVES Verified 11/11/20 22:48 Review of Systems Review of Systems: Yes all other systems are reviewed and are negative [facility] Past Medical History Medical History Hepatic steatosis Melanoma Seizures Skin cancer Unilateral agenesis of kidney Social History Social History Alcohol intake: unknown Patient Tobacco Use Status: Current everyday Tobacco user Cigarette Packs Per Day: 10 Advance Directives: No Advance Directives Information Provided: No Patient : No Physical Exam Vital Signs: Vital Signs: Last Vital Signs Temp 97.7 F 11/11/20 22:38 Pulse 87 11/11/20 23:28 Resp 18 11/11/20 23:28 BP 113/77 11/11/20 23:28 Pulse Ox 97 11/11/20 23:28 Body Mass Index 30.2 Const: General: well developed and in distress moderate Orientation/consciousness: patient oriented x3 HENMT: Head: Yes normocephalic and Yes atraumatic Eyes: General: appearance normal, both eyes and all related structures Neck: Neck: Yes supple and No tender Resp: Effort & Inspection: normal respiratory effort Auscultation: clear to auscultation bilaterally Cardio: Palpation: normal PMI Rate: regular rate Rhythm: regular rhythm Heart sounds: S1 normal heart sound present and S2 normal heart sound present GI: Inspection: Yes normal to inspection Palpation (GI): Soft to palpation and nontender Neuro: General: patient oriented x3 Extrem: Ankle/foot/toe images: 1. Obvious deformity with swelling and tender ness at medial malleolus of left ankle neurovascular intact MDM - Extremity Injury (Lower) MDM Narrative Medical decision making narrative: Patient with fibular and medial malleolar fracture stirrup splint with posterior splint was applied advised to follow with orthopedic Lab Data Labs: Lab Results 11/11/20 11/11/20 Range/Units 23:00 23:00 Urine Color STRAW Urine Appearance HAZY Urine pH 6.0 (5.0-8.0) Ur Specific [place] <= 1.005 (1.005-1.025) Urine Protein NEG (NEG-TRACE) MG/DL Urine Glucose (UA) NEG (NEG) MG/DL Urine Ketones NEG (NEG) MG/DL Urine Blood NEG (NEG) Urine Nitrite POS H (NEG) Ur Leukocyte Esterase TRACE H (NEG) Urine RBC 0 (0) /HPF Urine WBC 0-2 (0-4) /HPF Ur Squamous Epith Cells 1+ /LPF Urine Bacteria 2+ /LPF Urine Test NEGATIVE (NEGATIVE) Procedures Orthopedic Splinting/Casting Injury #1: Side: left Lower Extremity Injury Location: ankle Lower Extremity Immobilizer: posterior splint and stirrup splint Other Orthopedic Equipment: crutches Discharge Plan Discharge Clinical Impression: Ankle fracture Qualifiers: Encounter type: initial encounter Fracture type: closed Laterality: left Qualified Code(s): S82.892A - Other fracture of left lower leg, initial encounter for closed fracture Patient Disposition: Home, Self-Care Instructions: Ankle Fracture (ED) Additional Instructions: Wear the splint, use crutches Follow-up with orthopedics as advised in 3-4 days Pain medication as advised Prescriptions: New oxycodone 5 mg tablet 5 mg PO Q6H PRN (Reason: Pain, Severe) Qty: 20 RF: 0 No Action trazodone 50 mg tablet 2 tab PO BEDTIME PRN (Reason: Insomnia) RF: 0 gabapentin 300 mg capsule 1 cap PO BID RF: 0 hydroxyzine HCl 25 mg tablet 1 tab PO BID PRN (Reason: Hypertension) RF: 0 escitalopram oxalate 20 mg tablet 1 tab PO DAILY RF: 0 aripiprazole 2 mg tablet 1 tab PO BEDTIME RF: 0 Referrals: Shaggy Dejesus MD [Physician] - 5 days Interventions: ED Discharge Assessment Last Done: 11/12/20 00:35 Discharge Date/Time: 11/12/20 00:58
[2020-11-11 23:02] LABS: Appearance Urine HAZY; Color Urine STRAW; Glucose Urine UA NEG (NEG); Leukocyte Esterase Urine TRACE (NEG); Nitrite Urine POS (NEG); Specific Gravity - Urine <= 1.005 (1.005-1.025); UACC Culture Trigger YES; Urine Blood NEG (NEG); Urine Ketones NEG (NEG); Urine Protein NEG (NEG-TRACE)
[2020-11-11 23:04] LABS: UPreg QC Valid YES; Urine Pregnancy NEGATIVE (NEGATIVE)
[2020-11-11 23:07] LABS: Bacteria Urine 2+ /LPF; Squamous Epithelial Cell Urine 1+ /LPF
[2020-11-11 23:08] LABS: RBC Urine 0 /HPF (0); WBC Urine 0-2 /HPF (0-4)
[2020-11-11 23:28] VITALS: BP 113/77; PULSE 87; RESP 18; O2SAT 97
[2020-11-11] MEDS: oxyCODONE HCl Immed Release 5 MG TABLET 10 MG PO (23:29)
== END 2020-11-12 00:58 | disposition home or self-care (01) ==
PROVIDERS: Emergency Provider Internal Medicine
DX: S82.892A Other fracture of left lower leg, initial encounter for closed fracture (principal); M79.605 Pain in left leg; F17.200 Nicotine dependence, unspecified, uncomplicated; W17.89XA Other fall from one level to another, initial encounter; Y93.9 Activity, unspecified; Y92.009 Unspecified place in unspecified non-institutional (private) residence as the place of occurrence of the external cause; Y99.9 Unspecified external cause status; Z71.6 Tobacco abuse counseling; Z79.899 Other long term (current) drug therapy
CPT/HCPCS: 29515; 73600; 81001; 81025; 87086; 87088; 87186; 99283; 99284

== ENCOUNTER 2020-11-25 09:56 | Outpatient (REF) | payer OTHER, SELFPAY ==
--- NOTE | ~2020-11-25 | XR_ITS ---
EXAMINATION: XR ANKLE, LEFT FL GUIDANCE IN OR INDICATION: Pain. COMPARISON: Comparison is made to previous dated 11/11/2020 TECHNIQUE: 3 views left ankle. 4 views submitted from the OR. FINDINGS: Once again, fracture dislocation is present. Continued medial angulation at the fracture apex of the fracture of the fibula. There is now overriding the fibular fracture and distraction of the proximal fibular fragment 1 bone width posterior to the distal fragment. There is subluxation/dislocation of the tibia relative to the talus with the tibia moving medially. Transverse fracture of the medial malleolus is noted. Another fracture fragment is seen between the fibula and the tibia suggesting a fracture of the lateral aspect of the tibia which is somewhat following the fibula. Based on the previous study, I must consider some increased migration of the bones as compared to previous. There are also 4 views submitted from the OR. Examination is demonstrating plate and screws bridging the fibular fracture. Screws involving the medial tibial fracture. On the films submitted, there is good anatomic alignment. XR/XR ankle LT min 3V IMPRESSION: Once again, fracture dislocation documented pre-OR with the OR film showing hardware in place and more anatomic approximation on limited views.
== END 2020-11-25 09:57 | disposition home or self-care (01) ==
LOC: HO.HOSX 09:56
PROVIDERS: Visit Provider Physician Assistant
DX: M25.572 Pain in left ankle and joints of left foot (principal)
CPT/HCPCS: 73610

== ENCOUNTER 2020-11-26 13:36 | Day surgery (SDC) | payer OTHER, SELFPAY ==
[2020-11-26] VITALS (17 sets, daily range): BP systolic 121–172; BP diastolic 51–102; PULSE 79–106; RESP 14–18; TEMP 36–36.6; O2SAT 93–99; BMI 30.2
--- NOTE | ~2020-11-26 | FL_ITS ---
EXAMINATION: XR ANKLE, LEFT FL GUIDANCE IN OR INDICATION: Pain. COMPARISON: Comparison is made to previous dated 11/11/2020 TECHNIQUE: 3 views left ankle. 4 views submitted from the OR. FINDINGS: Once again, fracture dislocation is present. Continued medial angulation at the fracture apex of the fracture of the fibula. There is now overriding the fibular fracture and distraction of the proximal fibular fragment 1 bone width posterior to the distal fragment. There is subluxation/dislocation of the tibia relative to the talus with the tibia moving medially. Transverse fracture of the medial malleolus is noted. Another fracture fragment is seen between the fibula and the tibia suggesting a fracture of the lateral aspect of the tibia which is somewhat following the fibula. Based on the previous study, I must consider some increased migration of the bones as compared to previous. There are also 4 views submitted from the OR. Examination is demonstrating plate and screws bridging the fibular fracture. Screws involving the medial tibial fracture. On the films submitted, there is good anatomic alignment. FL/FL guidance in OR IMPRESSION: Once again, fracture dislocation documented pre-OR with the OR film showing hardware in place and more anatomic approximation on limited views.
--- NOTE | 2020-11-26 13:55 | HE.PHANOTE ---
Patient's weight is 150 lbs and the vancomycin pre-op dose is dosed correctly with 15 mg/kg.
[2020-11-26 14:17] LABS: UPreg QC Valid YES; Urine Pregnancy NEGATIVE (NEGATIVE)
--- NOTE | 2020-11-26 14:33 | P.CONAN_ITS ---
HPI - Anesthesia Eval Consult details Narrative: 40 yo female patient for ORIF LEFT ankle fracture PMFSH Active Problems Active Problems: All Active Problems (Updated 11/26/20 @ 14:19 by Tari salguero RN) Transaminitis (Acute) Alcoholic hepatitis (Acute) Hepatic steatosis (Acute) Past Medical History Medical History (Updated 11/26/20 @ 15:13 by Noris Xavier MD) Hepatic steatosis Melanoma Seizures Sinus tachycardia Skin cancer Unilateral agenesis of kidney Family History Family history of problems with anesthesia: No Surgical History Surgical History Hx of section History of Problems with Anesthesia: No Social History Social History (Updated 11/26/20 @ 15:15 by Noris Xavier MD) Alcohol intake: current Alcohol intake frequency: a few times a week Patient Tobacco Use Status: Current everyday Tobacco user Cigarette Packs Per Day: 10 Cigarettes Per Day: 8 Years Smoked: 15 Smoked in Last 30 Days: Yes Use of substances other than those prescribed or required for medical reasons: Yes Substance Use Type: Marijuana Substance Use Frequency: Monthly Last Used Substance: Hours (ago) Currently Displaying Signs/Symptoms of Drug Intoxication Withdrawal: No Are you DNR?: No Advance Directives: No Advance Directives Information Provided: Yes Current occupational status: disabled 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 Meds Allergies Allergy/AdvReac Type Severity Reaction Status Date / Time acetaminophen [From TYLENOL] Allergy Severe ANAPHYLAXIS Verified 11/26/20 14:00 Penicillins [PENICILLINS] Allergy Severe HIVES Verified 11/26/20 14:00 Active Medications: Current Medications Vancomycin HCl 1,000 mg/ (Sodium Chloride) 270 mls @ 270 mls/hr IV PREOP ONE Stop: 11/26/20 14:42 Home Medications Medication Instructions Recorded Confirmed Last Taken Type aripiprazole 2 mg tablet 1 tab PO BEDTIME 09/18/20 09/18/20 Unknown History escitalopram oxalate 20 mg tablet 1 tab PO DAILY 09/18/20 09/18/20 Unknown History gabapentin 300 mg capsule 1 cap PO BID 09/18/20 09/18/20 Unknown History hydroxyzine HCl 25 mg tablet 1 tab PO BID PRN 09/18/20 09/18/20 Unknown History trazodone 50 mg tablet 2 tab PO BEDTIME PRN 09/18/20 09/18/20 Unknown History ibuprofen 300 mg tablet mg PO 11/26/20 11/26/20 11/26/20 History Exam Exam Date and Time: November 26, 2020 1433 Height,Weight and Vital Signs: Height 4 ft 11 in Weight 68.039 kg Last Vital Signs Temp 97.8 F 11/26/20 14:10 Pulse 106 H 11/26/20 14:10 Resp 16 11/26/20 14:10 BP 121/85 11/26/20 14:10 Pulse Ox 96 11/26/20 14:10 Pertinent Lab Results Pertinent Lab Results: Laboratory Tests 11/26/20 14:00 Urine Test NEGATIVE Airway Mallampati Class: II TM Dist: >3cm Neck ROM: Full Loose/Missing/Broken Teeth: No Heart: RRR Lungs: CTAB Assessment and Plan Assessment Anesthesia Assessment: Anesthesia Plan Discussed and Chart Reviewed Final Anesthetic Review Family History of Problems with Anesthesia: No History of Problems with Anesthesia: No NPO: Yes ASA Class: III Final Preanesthetic Review: No Changes in Pt Med Stat, Meds/Allgs Chart Reviewed, Consent Obtained/Reviewed and Anes Risks/Benef Reviewed Patient Risk: Intermediate Procedure Risk: Low Assessment/Block/Sedation in SS: Assess/Block/Sedation-SS Anesthetic Plan Anesthetic Plan: GA Disposition: Standard PACU
[2020-11-26] MEDS: vancomycin HCL 1,000 MG in 0.9 % Sodium Chloride 250 ML 270 MG IV (14:35)
[2020-11-26] MEDS: Lactated Ringers 1,000 ML 100 ML IVCONT (14:45)
--- NOTE | 2020-11-26 14:53 | MHC.SHP ---
Pre-Procedural Eval Section A Date of Service: 11/26/20 The patient is an INPATIENT: No Changes since office visit: Yes Patient answered all questions; No Cold of Flu in the past 2 weeks, No New Medical Problems and No Changes in Medication The History & Physical has been completed within 30 days and I have reviewed it.: Yes Section B Chief Complaint: nondisplaced bimalleolar fx Allergies: Allergies Allergy/AdvReac Type Severity Reaction Status Date / Time acetaminophen [From TYLENOL] Allergy Severe ANAPHYLAXIS Verified 11/26/20 14:00 Penicillins [PENICILLINS] Allergy Severe HIVES Verified 11/26/20 14:00 Plan I have reviewed the history and physical and performed a pertinent physical examination on my patient. No changes have occurred unless specified.
--- NOTE | 2020-11-26 15:07 | PM.HPOR ---
History of Present Illness History of Present Illness Date of Service: 11/26/20 <Ludy Callahan PA-C - Last Filed: 11/26/20 15:11> 11/27/20 <Shaggy Dejesus MD - Last Filed: 11/27/20 10:39> Chief complaint: nondisplaced bimalleolar fx <Ludy Callahan PA-C - Last Filed: 11/26/20 15:11> Narrative: Hyacinth Otto is a 40 year old female who fell while trying to climb into the window of the first floor to her house trying to retrieve her keys. After the fall she felt immediate pain and was unable to ambulate. She presented ot the Ed where x-rays were obtained and she was found to have a bimalleolar fracture. She was placed in a posterior splint and instructed to followup with orthopedics outpatient for further evaluation and treatment. <Ludy Callahan PA-C - Last Filed: 11/26/20 15:11> Review of Systems Review of Systems: Yes all other systems are reviewed and are negative <Ludy Callahan PA-C - Last Filed: 11/26/20 15:11> PMF Past Medical History Medical History: Medical History (Updated 11/26/20 @ 15:13 by Noris Xavier MD) Hepatic steatosis Melanoma Seizures Sinus tachycardia Skin cancer Unilateral agenesis of kidney <Ludy Callahan PA-C - Last Filed: 11/26/20 15:11> Surgical History Surgical History: Surgical History Hx of section <Ludy Callahan PA-C - Last Filed: 11/26/20 15:11> Social History Social History: Social History (Updated 11/26/20 @ 15:15 by Noris Xavier MD) Alcohol intake: current Alcohol intake frequency: a few times a week Patient Tobacco Use Status: Current everyday Tobacco user Cigarette Packs Per Day: 10 Cigarettes Per Day: 8 Years Smoked: 15 Substance Use Type: Marijuana Current occupational status: disabled 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 <Ludy Callahan PA-C - Last Filed: 11/26/20 15:11> Meds Allergies/Adverse reactions: Allergies Allergy/AdvReac Type Severity Reaction Status Date / Time acetaminophen [From TYLENOL] Allergy Severe ANAPHYLAXIS Verified 11/26/20 14:00 Penicillins [PENICILLINS] Allergy Severe HIVES Verified 11/26/20 14:00 <Ludy Callahan PA-C - Last Filed: 11/26/20 15:11> Active Medications: Current Medications Lactated Ringer's (Lr) 1,000 mls @ 100 mls/hr IVCONT .Q10H LEONA Last Admin: 11/26/20 14:45 Dose: 100 mls/hr Documented by: <Ludy Callahan PA-C - Last Filed: 11/26/20 15:11> Home medications: Home Medications Medication Instructions Recorded Confirmed Last Taken Type aripiprazole 2 mg tablet 1 tab PO BEDTIME 09/18/20 09/18/20 Unknown History escitalopram oxalate 20 mg tablet 1 tab PO DAILY 09/18/20 09/18/20 Unknown History gabapentin 300 mg capsule 1 cap PO BID 09/18/20 09/18/20 Unknown History hydroxyzine HCl 25 mg tablet 1 tab PO BID PRN 09/18/20 09/18/20 Unknown History trazodone 50 mg tablet 2 tab PO BEDTIME PRN 09/18/20 09/18/20 Unknown History <Ludy Callahan PA-C - Last Filed: 11/26/20 15:11> Physical Exam Vital Signs: Vital Signs: Last Vital Signs Temp 97.8 F 11/26/20 14:10 Pulse 106 H 11/26/20 14:10 Resp 16 11/26/20 14:10 BP 121/85 11/26/20 14:10 Pulse Ox 96 11/26/20 14:10 Body Mass Index 30.2 <JASSON Taylor Last Filed: 11/26/20 15:11> Extrem: Other: Left ankle circumfrential edema and ecchymosis. No redness. Open fracture blister along the medial malleolus. Sensation intact. Pedal pulse intact. <JASSON Taylor Last Filed: 11/26/20 15:11> Results Labs Labs: All other labs normal. <Ludy Callahan PA-C - Last Filed: 11/26/20 15:11> Assessment and Plan (1) Bimalleolar fracture of left ankle: Status: Acute <Ludy Callahan PA-C - Last Filed: 11/26/20 15:11> I discussed the case with Dr. Dejesus who was also available to see the patient with me and explained the extent of the injury to the patient and options available which include surgical intervention. I explained the procedure in detail along with the length of recovery and rehab course. I explained the risk, benefits and alternatives. Risk including, but not limited to infection, blood clots, bleeding, non union or malunion and nerve/tissue damage to surrounding areas. I answered all their questions and with their understanding they have consented to move forward with Operative Fixation of the left ankle. The patient will be NPO after midnight and present to the operating room tomorrow. <Ludy Callahan PA-C - Last Filed: 11/26/20 15:11> Quality Stroke Does the patient have a stroke diagnosis?: No <Ludy Callahan PA-C - Last Filed: 11/26/20 15:11> VTE Prior VTE?: No <Ludy Callahan PA-C - Last Filed: 11/26/20 15:11> VTE Risk Level:: Surgical - low <Ludy Callahan PA-C - Last Filed: 11/26/20 15:11> VTE Device Contraindication: N/A - Device Ordered <Ludy Callahan PA-C - Last Filed: 11/26/20 15:11> VTE Drug Contraindication: N/A - Med Ordered <Ludy Callahan PA-C - Last Filed: 11/26/20 15:11> Procedures Date of Service Date of Service: 11/26/20 <Ludy Callahan PA-C - Last Filed: 11/26/20 15:11>
--- NOTE | 2020-11-26 17:03 | PM.OP ---
Brief Operative Note Date of Service: 11/26/20 Pre-op diagnosis: left ankle bimalleolar fracture Post-op diagnosis: same Procedure: ORIF left ankle hamlet Implants: [place] lateral 8 hole plate and 2 40 mm 4.0 cannulated screws medially Surgeon: Shaggy Dejesus MD Anesthesia: GETA Was an Electrical And Instrument Engineer used for this Procedure?: Yes Electrical And Instrument Engineer: Ludy Callahan Estimated blood loss (mL): 10 Tourniquet time (min): 75 IV fluids (mL): 1,000 Pathology: none sent Condition: stable Disposition: PACU
--- NOTE | 2020-12-17 15:08 | W.PM.OPN ---
Operative Note Operative Note Date of Service: 11/26/20 Narrative: Pre-op diagnosis: left ankle bimalleolar fracture Post-op diagnosis: same Procedure: ORIF left ankle hamlet Implants: [place] lateral 8 hole plate and 2 40 mm 4.0 cannulated screws medially Surgeon: Shaggy Dejesus MD Anesthesia: GETA Was an Boat Pilot used for this Procedure?: Yes Boat Pilot: Ludy Callahan Estimated blood loss (mL): 10 Tourniquet time (min): 75 IV fluids (mL): 1,000 Pathology: none sent Condition: stable Disposition: PACU Procedure in detail: Patient was brought to the operating room placed supine on the operative table and prepped and draped in standard sterile fashion. A time-out was called after proper site proper procedure proper surgeon IV antibiotics per weight were administered. Her left lower extremity was exsanguinated and the tourniquet was insufflated to 300 mm Hg. I began by making a standard lateral incision over the high fibula fracture. Peroneal nerve was identified and protected and the fracture was exposed and debrided with irrigation and a right sure. A 9 hole locking plate was used and standard AO to technique was applied to stabilize the fracture with 6 cortices distal and 8 cortices proximal fracture. I was satisfied with the stability of the fracture and turned my attention to the medial malleolus. Act oblique incision was made over the tip of the medial malleolus and 2 threaded K-wires were placed from distal to proximal across the fracture into the tibia. These were then over drilled and 240 mm 400 cannulated screws were placed reducing the fracture anatomically. Once this was done a external rotation test was performed and the syndesmosis and mortise appeared unchanged. I then irrigated copiously and closed with absorbable suture and gill. Sterile dressings were applied. Patient was then placed in a well-padded posterior splint. She was then extubated brought to recovery room in stable condition there were no known complications.
== END 2020-11-26 19:20 | disposition home or self-care (01) ==
PROVIDERS: Anesthesiology; Visit Provider Orthopaedic Surgery
PROC: (CPT 27814; principal; 2020-11-26 13:30)
DX: S82.845A Nondisplaced bimalleolar fracture of left lower leg, initial encounter for closed fracture (principal); W13.4XXA Fall from, out of or through window, initial encounter; Y93.39 Activity, other involving climbing, rappelling and jumping off; Y92.007 Garden or yard of unspecified non-institutional (private) residence as the place of occurrence of the external cause; Y99.8 Other external cause status; K76.0 Fatty (change of) liver, not elsewhere classified; Q60.0 Renal agenesis, unilateral; R56.9 Unspecified convulsions; R00.0 Tachycardia, unspecified; Z79.899 Other long term (current) drug therapy; Z88.0 Allergy status to penicillin; Z88.8 Allergy status to other drugs, medicaments and biological substances; Z85.820 Personal history of malignant melanoma of skin; F17.210 Nicotine dependence, cigarettes, uncomplicated; F12.90 Cannabis use, unspecified, uncomplicated
CPT/HCPCS: 27814; 81025; C1713; J1100; J1170; J2250; J2405; J2765; J3010; J3370

== ENCOUNTER 2020-12-09 09:25 | Outpatient (REF) | payer OTHER, SELFPAY ==
--- NOTE | ~2020-12-09 | XR_ITS ---
EXAMINATION: XR ANKLE, LEFT CLINICAL INFORMATION: Pain. COMPARISON: Most recent left ankle radiographs dated 11/25/2020. TECHNIQUE: AP, lateral, and mortise views of the left ankle. FINDINGS: Interval placement of a fibular stabilization plate across the previously seen fracture which is now in anatomic alignment. Orthopedic screws across the medial malleoli fracture which is now in near anatomic alignment. Reduction of the previously seen talar subluxation. Mild persistent widening at the distal tibiofibular joint. Circumferential soft tissue swelling. No hardware fracture. No perihardware lucency to suggest loosening or infection. Medial and lateral surgical gill. XR/XR ankle LT min 3V IMPRESSION: Distal fibular and medial malleoli fractures with significant improvement in anatomic alignment. Associated orthopedic hardware without evidence of hardware complication. Mild persistent widening of the distal tibiofibular joint. Circumferential soft tissue swelling.
== END 2020-12-09 09:26 | disposition home or self-care (01) ==
LOC: HO.HOSX 09:25
PROVIDERS: Visit Provider Physician Assistant
DX: S82.892D Other fracture of left lower leg, subsequent encounter for closed fracture with routine healing (principal)
CPT/HCPCS: 29405; 73610; 99212

== ENCOUNTER → 2020-12-20 14:26 | Outpatient (BNVA) | payer OTHER, SELFPAY | PROVIDERS: Visit Provider Physician Assistant | DX: Z98.890 Other specified postprocedural states (principal); Z87.81 Personal history of (healed) traumatic fracture | CPT/HCPCS: 99212 ==

== ENCOUNTER 2021-01-06 08:41 | Outpatient (REF) | payer OTHER, SELFPAY ==
--- NOTE | ~2021-01-06 | XR_ITS ---
EXAMINATION: XR ANKLE, LEFT CLINICAL INFORMATION: Fracture COMPARISON: Previous x-rays most recent November 2020 TECHNIQUE: AP, lateral, and mortise views of the left ankle. FINDINGS: There is ORIF of the medial malleolar and distal fibular shaft fractures. Orthopedic hardware appears unchanged. Alignment is unchanged. Fracture lines are still seen. There is slight widening of the distal tibiofibular joint. This is unchanged. There is soft tissue swelling. XR/XR ankle LT min 3V IMPRESSION: ORIF of medial malleolar and distal fibular shaft fracture. No change from November 2020 exam.
== END 2021-01-06 08:42 | disposition home or self-care (01) ==
LOC: HO.HOSX 08:41
PROVIDERS: Visit Provider Orthopaedic Surgery
DX: S82.842D Displaced bimalleolar fracture of left lower leg, subsequent encounter for closed fracture with routine healing (principal)
CPT/HCPCS: 73610; 99212

== ENCOUNTER 2021-01-14 09:34 | Outpatient (REF) | payer OTHER, SELFPAY ==
--- NOTE | ~2021-01-14 | XR_ITS ---
EXAMINATION: XR ANKLE, LEFT CLINICAL INFORMATION: Fracture. Pain. COMPARISON: Several priors. Most recent of 01/06/21. TECHNIQUE: AP, lateral, and mortise views of the left ankle. FINDINGS: A sideplate and screws remain in stable position across an oblique fracture of the distal shaft of fibula. Anatomic alignment is maintained. No visible callus. No hardware complication. 2 surgical screws remain in stable position across a fracture of the medial malleolus. There is stable near-anatomic alignment with early reactive bone formation. The fracture line is still clearly visualized. The fracture along the lateral aspect of the distal tibial metaphysis and epiphysis is again demonstrated with similar displacement. XR/XR ankle LT min 3V IMPRESSION: Stable appearance of fractures of the distal left tibia and fibula status post ORIF.
== END 2021-01-14 09:35 | disposition home or self-care (01) ==
LOC: HO.HOSX 09:34
PROVIDERS: Visit Provider Orthopaedic Surgery
DX: S93.432D Sprain of tibiofibular ligament of left ankle, subsequent encounter (principal); F17.210 Nicotine dependence, cigarettes, uncomplicated
CPT/HCPCS: 73610; 99212

== ENCOUNTER 2021-02-07 07:18 | Outpatient (REF) | payer OTHER, SELFPAY | END 2021-02-07 07:19 | disposition home or self-care (01) | LOC: HO.HOSX 07:18 | PROVIDERS: Visit Provider Physician Assistant | DX: Z13.89 Encounter for screening for other disorder (principal) ==

== ENCOUNTER 2021-10-21 21:32 | Emergency (ER) | payer OTHER, MEDICAID, SELFPAY ==
--- NOTE | ~2021-10-21 | CT_ITS ---
EXAMINATION: NONCONTRAST HEAD CT NONCONTRAST CERVICAL SPINE CT INDICATION INFORMATION: Fall, pain COMPARISON: 04/25/2020 TECHNIQUE: Separate noncontrast CT examinations of the head and cervical spine were performed. Coronal head CT images and coronal and sagittal cervical spine images were created at the technologist workstation. DLP: 1014 mGy-cm DOSE LOWERING TECHNIQUES: This CT examination was performed using dose optimization techniques as appropriate, variously including the following: - Automated exposure control - Adjustment of mA and/or kV according to patient size (this includes techniques or standardized protocols for targeted exams were dose is matched to indication/reason for exam; i.e. extremities or head) - Use of iterative reconstruction technique FINDINGS: Head: There is no evidence of acute intracranial hemorrhage or territorial infarction. No abnormal mass-effect or midline shift is seen. [place] to white matter differentiation is well preserved. No extra-axial fluid collections are identified. The ventricles are normal in size. There is mild patchy subcortical white matter hypoattenuation consistent with chronic small vessel ischemic disease. Chronic deformity of the left lamina papyracea. The osseous structures and soft tissues are otherwise normal. The mastoid air cells and visualized portions of the paranasal sinuses are well-aerated. Cervical spine: There is anatomic alignment of the vertebral bodies and posterior elements. Vertebral body heights are maintained. There is degenerative change at the atlantodens articulation. Mild disc space narrowing of the lower cervical spine with associated endplate osteophytes. No evidence of acute fracture. No prevertebral soft tissue swelling. Visualized portions of the lung apices are unremarkable. The thyroid gland is unremarkable. CT/CT cervical spine wo con IMPRESSION: No acute findings identified in the head or cervical spine.
[2021-10-21 21:39] VITALS: BP 107/76; PULSE 87; RESP 16; TEMP 36.5; O2SAT 97; BMI 30.2
--- NOTE | 2021-10-21 22:42 | ED_ITS ---
HPI - Fall General Chief Complaint: Fall Stated Complaint: fall Time Seen by Provider: 10/21/21 22:15 Source: patient and EMS Mode of arrival: EMS Limitations: no limitations History of Present Illness HPI Narrative: Patient comes to the emergency room complaining of a mechanical fall. Patient states that she was in her kitchen, the floor was wet, she slipped backwards and hit her head. Patient states that she is not sure if she lost consciousness, if she did, it was for a few seconds per patient. Patient complaining of a mild headache and posterior neck pain. Patient denies any other injuries or pain. P atient states that she drank alcohol approximately 20 hours ago. Related Data Home Medications Medication Instructions Recorded Confirmed aripiprazole 2 mg tablet 1 tab PO BEDTIME 09/18/20 09/18/20 escitalopram oxalate 20 mg tablet 1 tab PO DAILY 09/18/20 09/18/20 gabapentin 300 mg capsule 1 cap PO BID 09/18/20 09/18/20 hydroxyzine HCl 25 mg tablet 1 tab PO BID PRN Hypertension 09/18/20 09/18/20 trazodone 50 mg tablet 2 tab PO BEDTIME PRN Insomnia 09/18/20 09/18/20 Previous Rx's Medication Instructions Recorded sulfamethoxazole 800 1 tab PO BID 10 days #20 tabs 11/26/20 mg-trimethoprim 160 mg tablet (Bactrim DS) Allergies Allergy/AdvReac Type Severity Reaction Status Date / Time acetaminophen [From TYLENOL] Allergy Severe ANAPHYLAXIS Verified 01/06/21 11:00 Penicillins [PENICILLINS] Allergy Severe HIVES Verified 01/06/21 11:00 Review of Systems Review of Systems: Constitutional : No Weight loss, No Fever, No Chills, No Night Sweats, No Fatigue, No Malaise ENT/Mouth : No Hearing loss, No Ear Pain, No Nasal Congestion, No Sinus Pain, No Hoarseness, No sore throat, No Rhinorrhea, No Swallowing Difficulty Eyes: No Eye Pain, No Swelling, No Redness, No Foreign Body, No Discharge, No Vision Changes Cardiovascular : No Chest Pain, No SOB, No Dyspnea on Exertion, No Orthopnea, No Edema, No Palpitations Respiratory : No Cough, No Sputum, No Wheezing, No Smoke Exposure, No Dyspnea Gastrointestinal : No Nausea, No Vomiting, No Diarrhea, No Constipation, No abdominal Pain, No Hematochezia, No Melena Genitourinary : no irregular bleeding, No Dysuria, No Urinary Frequency, No Hematuria, No Urinary Incontinence, No Urgency, No Flank Pain, No Urinary Flow Changes, No Hesitancy Musculoskeletal : Complaining of posterior neck pain, No joint pain, No Myalgias, No Joint Swelling Skin : No Skin Lesions, No rash Neuro : No Weakness, No Numbness, No Paresthesias, No Loss of Consciousness, No Dizziness, complaining of a mild Headache Psych : No Anxiety/Panic, No Depression, No SI/HI/AH/VH, No Social Issues, Heme/Lymph: No Bruising, No Bleeding,No Lymphadenopathy Endocrine : No Polyuria, No Polydipsia, No Temperature Intolerance [facility] Past Medical History Medical History Hepatic steatosis Melanoma Seizures Sinus tachycardia Skin cancer Unilateral agenesis of kidney Surgical History Hx of section 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 Oriented X3. No acute distress. Eyes: Pupils equal, round and reactive to light. ENT: Pharynx normal. Neck: On C-spine precautions, mild pain to palpation posteriorly, no palpable step-offs CVS: Normal heart rate and rhythm. Pulses normal. Normal S1 and S2 Respiratory: No respiratory distress. Breath sounds normal. No Wheezing. No rales Abdomen: Soft and nontender. No rigidity. No distention. Skin: Skin warm and dry. Normal skin color. Normal skin turgor. Extremities: No lower extremity edema. No Lacerations. No Rash Neuro: Oriented X 3. No motor deficit. No sensory deficit. Moving all extremities. No slurred speech. CN 2 through 12 grossly intact Psych: calm, cooperative, normal affect Course Course Course Narrative: Patient's head and cervical spine CTs are pending 00:18, I discussed with the patient the CT scan findings. No acute pathology. Patient provided with p.o. ibuprofen. Patient ready for discharge Discharge Plan Discharge Clinical Impression: Fall, Contusion Patient Disposition: Home, Self-Care Instructions: Fall Prevention (ED) Additional Instructions: Please follow-up with your primary care physician tomorrow. If you have any worsening or new symptoms, please return to the emergency room or call 911 Prescriptions: No Action trazodone 50 mg tablet 2 tab PO BEDTIME PRN (Reason: Insomnia) gabapentin 300 mg capsule 1 cap PO BID hydroxyzine HCl 25 mg tablet 1 tab PO BID PRN (Reason: Hypertension) escitalopram oxalate 20 mg tablet 1 tab PO DAILY aripiprazole 2 mg tablet 1 tab PO BEDTIME sulfamethoxazole-trimethoprim [Bactrim DS] 800-160 mg tablet 1 tab PO BID 10 Days Qty: 20 0RF
--- NOTE | 2021-10-22 00:31 | PC.NURSE ---
Pt. MORENO for a fall. Pt. placed in the [facility] on a stretcher. Pt. took off her cervical collar as she felt like she was going to be sick. This medical writer, placed the collar back on the pt. and reiterated the importance of keeping the collar on pending the CT. Pt. was sleeping awaiting results of CT. CT results came back negative and pt. dc'd to home.
== END 2021-10-22 00:35 | disposition home or self-care (01) ==
PROVIDERS: Emergency Provider Emergency Medicine
DX: S00.93XA Contusion of unspecified part of head, initial encounter (principal); R51.9 Headache, unspecified; M54.2 Cervicalgia; W01.0XXA Fall on same level from slipping, tripping and stumbling without subsequent striking against object, initial encounter; Y93.9 Activity, unspecified; Y92.000 Kitchen of unspecified non-institutional (private) residence as the place of occurrence of the external cause; Y99.9 Unspecified external cause status; Z79.899 Other long term (current) drug therapy
CPT/HCPCS: 70450; 72125; 99282; 99284

== ENCOUNTER 2022-01-23 09:04 | Outpatient (REF) | payer OTHER, SELFPAY ==
[2022-01-23 09:16] LABS: MANUAL DIFF FLAG NO
[2022-01-23 10:12] LABS: Basophils Absolute Auto 0.1 X10*3/uL (0.0-0.2); Basophils Percent Auto 1.5 % (0-2); Eosinophils Absolute Auto 0.1 X10*3/uL (0.0-0.4); Eosinophils Percent Auto 1.6 % (0-4); Hematocrit 43.4 % (37.0-47.0); Hemoglobin 14.6 g/dl (12.0-16.0); Imm Gran Abs Auto 0.02 X10*3/uL (0.00-0.03); Imm Gran Pct Auto 0.3 % (0.0-0.4); Lymphocytes Absolute Auto 2.6 X10*3/uL (1.2-4.9); Lymphocytes Percent Auto 37.7 % (20-40); Mean Corpuscular HGB Conc 33.6 g/dl (31.0-35.0); Mean Corpuscular Hemoglobin 32.4 pg (27.0-33.0); Mean Corpuscular Volume 96.2 fL (80.0-98.0); Mean Platelet Volume 10.1 fL (9.4-12.3); Monocytes Absolute Auto 1.1 X10*3/uL (0.1-1.2); Neutrophils Absolute Auto 2.9 x10*3/uL (2.0-8.3); Neutrophils Percent Auto 42.9 % (45-73); Platelet Count 417 X10*3/uL (160-400); Red Blood Count 4.51 X10*6/uL (4.20-5.50); Red Cell Distribution Width 14.1 % (11.0-16.0); White Blood Count 6.8 X10*3/uL (4.8-10.8)
[2022-01-23 10:39] LABS: Alanine Aminotransferase 173 U/L (0-31); Albumin Level 4.5 g/dL (3.5-5.0); Alkaline Phosphatase 184 U/L (39-117); Anion Gap 16 (12-20); Aspartate Amino Transferase 281 U/L (5-31); Bilirubin Total 0.7 mg/dL (0.0-1.0); Blood Urea Nitrogen 20 mg/dL (9-16); Calcium 10.3 mg/dL (8.4-10.2); Carbon Dioxide 24 mmol/L (22-29); Chloride 101 mmol/L (96-108); Cholesterol 282 mg/dL; Estimated Glomerular Filt Rate > 60; Glucose Fasting 80 mg/dL (60-99); HDL Cholesterol 47 mg/dL; LDL Cholesterol Calculated 198 mg/dl; Potassium 4.4 mmol/L (3.3-5.1); Sodium 137 mmol/L (135-145); Total Protein 8.1 g/dL (6.5-8.0); Triglycerides 188 mg/dL
[2022-01-23 10:46] LABS: HBS Num1 0.32 mIU/mL (0-7.99); HBc Num1 0.07 S/CO (0.00-0.79); HBsAGNum1 0.27 S/CO (0.00-0.99); Hepatitis A Antibody IgM 0.22 Index (0-0.79); Hepatitis B Core Antibody Nonreactive (Nonreactive); Hepatitis B Surface Antigen Negative (Negative); ~HepC Num1 17.38 S/CO (0.00-0.79); ~Hepatitis A Antibody IgM Nonreactive (Nonreactive); ~Hepatitis B Surface Antibody NONREACTIVE (Nonreactive); ~Hepatitis C Antibody Reactive (Nonreactive)
[2022-01-23 11:02] LABS: TSH reflex Free T4 1.23 uIU/mL (0.32-4.0)
[2022-01-23 12:50] LABS: Folate 8.6 ng/mL (> or = 4.0); Vitamin B12 673 pg/mL (200-900)
[2022-01-25 20:39] LABS: HCV RNA PCR Qn 1470000 IU/mL (NOT DETECTED); HCV RNA PCR Qn 6.17 Log IU/mL (NOT DETECTED)
[2022-01-28 07:54] LABS: HCV Genotype LiPA 2
== END 2022-01-23 09:05 | disposition home or self-care (01) ==
LOC: HO.LAB 09:04
PROVIDERS: PCP Nurse Practitioner Family; Visit Provider Nurse Practitioner Family
DX: B19.20 Unspecified viral hepatitis C without hepatic coma (principal); Z76.89 Persons encountering health services in other specified circumstances; E78.5 Hyperlipidemia, unspecified; E55.9 Vitamin D deficiency, unspecified; G47.00 Insomnia, unspecified; R56.9 Unspecified convulsions; F43.10 Post-traumatic stress disorder, unspecified; F31.9 Bipolar disorder, unspecified; F41.9 Anxiety disorder, unspecified; F32.A Depression, unspecified
CPT/HCPCS: 36415; 80053; 80061; 82306; 82607; 82746; 84443; 85025; 86704; 86706; 86709; 86803; 87340; 87522; 87902

== ENCOUNTER → 2022-02-08 09:51 | Outpatient (BNVA) | payer OTHER, SELFPAY | PROVIDERS: PCP Nurse Practitioner Family; Visit Provider Internal Medicine | DX: B19.20 Unspecified viral hepatitis C without hepatic coma (principal) | CPT/HCPCS: 99212 ==

== ENCOUNTER 2022-04-19 11:41 | Outpatient (REF) | payer OTHER, SELFPAY ==
[2022-04-19 13:02] LABS: Cholesterol 299 mg/dL; HDL Cholesterol 103 mg/dL; LDL Cholesterol Calculated 177 mg/dl; Triglycerides 95 mg/dL
[2022-04-19 13:16] LABS: Vitamin D 25-OH Total 57.5 ng/mL (>30)
[2022-04-23 06:59] LABS: HCV RNA PCR Qn <1.18 NOT DETECTED Log IU/mL (NOT DETECTED); HCV RNA PCR Qn <15 NOT DETECTED IU/mL (NOT DETECTED)
[2022-04-26 00:39] LABS: FIB-ALT 82 U/L (6-29); FIB-Alpha-2-Macroglobulin 158 mg/dL (106-279); FIB-Apolipoprotein A1 243 mg/dL (101-198); FIB-GGT 512 U/L (3-55); FIB-Haptoglobin 136 mg/dL (43-212); FIB-Total Bilirubin 0.9 mg/dL (0.2-1.2); Liver Fibrosis Score 0.16; Liver Fibrosis Stage F0; Nec Inflam Act Grade A1-A2; Nec Inflam Act Score 0.43
== END 2022-04-19 11:42 | disposition home or self-care (01) ==
LOC: HO.LAB 11:41
PROVIDERS: PCP Nurse Practitioner Family; Visit Provider Internal Medicine
DX: B19.20 Unspecified viral hepatitis C without hepatic coma (principal); E78.5 Hyperlipidemia, unspecified; E55.9 Vitamin D deficiency, unspecified
CPT/HCPCS: 36415; 80061; 81596; 82306; 87522; 87902

== ENCOUNTER → 2022-05-10 11:47 | Outpatient (BNVA) | payer OTHER, SELFPAY | PROVIDERS: PCP Nurse Practitioner Family; Visit Provider Internal Medicine | DX: B19.20 Unspecified viral hepatitis C without hepatic coma (principal) | CPT/HCPCS: 99212 ==

== ENCOUNTER 2022-07-15 10:26 | Emergency (ER) | payer OTHER, SELFPAY ==
--- NOTE | 2022-07-15 | ECG_ITS ---
Test Reason : CHEST DISCOMFORT Blood Pressure : / mmHG Vent. Rate : 077 BPM Atrial Rate : 077 BPM P-R Int : 128 ms QRS Dur : 080 ms QT Int : 384 ms P-R-T Axes : 080 045 051 degrees QTc Int : 434 ms Normal sinus rhythm Possible Left atrial enlargement Borderline ECG No previous ECGs available Referred By: Generic ED Physician Electronically Signed By:Cruz Ledbetter
--- NOTE | ~2022-07-15 | CT_ITS ---
EXAMINATION: CT ANGIOGRAM OF THE CHEST WITH AND WITHOUT CONTRAST (CT PULMONARY ANGIOGRAM FOR PE) CLINICAL INFORMATION: Reason for Exam elevated D-dimer. Pleuritic chest pain COMPARISON: None available. TECHNIQUE: Prior to contrast administration, noncontrast localization images were obtained. Subsequently, multidetector volumetric imaging was performed from the thoracic inlet to below the diaphragms following the administration of 65 mL Omnipaque 350 intravenous contrast. No contrast reaction reported Sagittal, coronal, and MIP oblique sagittal reformatted images were obtained on the CT workstation, uploaded to PACS, and reviewed. This CT examination was performed using dose optimization techniques as appropriate, variously including the following: *Automated exposure control *Adjustment of mA and/or kV according to patient size (this includes techniques or standardized protocols for targeted exams where dose is matched to indication/reason for exam; i.e. extremities or head) *Use of iterative reconstruction technique Total exam dose-length product 196 mGy-cm FINDINGS: QUALITY OF STUDY/CONTRAST BOLUS: Satisfactory. PULMONARY ARTERIES: No pulmonary emboli. Artifact in the main pulmonary artery. THORACIC AORTA: No aneurysm. A four-vessel arch. Artifact in the aortic arch. LUNG: Multifocal consolidation most pronounced in the middle lobe and lingula. Thick-walled airways. Differential considerations include multifocal pneumonia or segmental atelectasis. CT angiograms sign within areas of consolidation are used against infarction. Some reflux vasoconstriction noted. Paraseptal emphysema. PLEURA: No pleural effusion or pneumothorax. MEDIASTINUM: Normal heart size. No pericardial effusion. No hilar or mediastinal lymphadenopathy. No evidence of septal bowing or right heart strain. CORONARY ARTERY CALCIFICATION: None visualized on this study. CHEST WALL/AXILLA: No axillary or internal mammary lymphadenopathy. OSSEOUS STRUCTURES: No acute or suspicious osseous abnormality. UPPER ABDOMEN: Atrophic left kidney. No reflux of contrast into the hepatic veins to suggest elevated right heart pressures. CT/CT angio chest PE protocol IMPRESSION: 1. No pulmonary embolism. 2. Emphysema 3. Multifocal consolidation. 4. Atrophic left kidney. VTE: negative Fleischner criteria utilized.
--- NOTE | ~2022-07-15 | XR_ITS ---
EXAMINATION: XR CHEST CLINICAL INFORMATION: Upper respiratory symptoms. COMPARISON: None available. TECHNIQUE: 2 views of the chest were obtained. FINDINGS: Mild bibasilar linear markings are seen. There are no pleural effusions. The heart and mediastinal structures are unremarkable. XR/XR chest 2V IMPRESSION: Mild bibasilar linear atelectasis/scarring. No acute cardiopulmonary process.
[2022-07-15 10:58] VITALS: BP 136/94; PULSE 79; RESP 18; TEMP 36.6; O2SAT 96; BMI 25.7
--- NOTE | 2022-07-15 11:20 | ED.URI ---
HPI - URI/Sore Throat General Chief Complaint: Upper Respiratory Symptoms Stated Complaint: L rib pain, hurts to breathe Time Seen by Provider: 07/15/22 11:19 Source: patient, RN notes reviewed and old records reviewed Mode of arrival: ambulatory History of Present Illness HPI Narrative: 41-year-old female with a past medical history of hepatic steatosis, melanoma, seizures, presenting to the ED complaining of left lateral chest wall pain x1 week worsen with deep breathing, movement and palpation. also reports productive cough, and mild SOB secondary to pain. Denies fever, chills, abdominal pain, nausea/ vomiting, pedal edema, history of clots, recent travel, oral OCPs. Patient is cigarette smoker Related Data Home Medications Medication Instructions Recorded Confirmed aripiprazole 2 mg tablet 1 tab PO BEDTIME 09/18/20 06/22/22 gabapentin 300 mg capsule 1 cap PO BID 09/18/20 06/22/22 buprenorphine 8 mg-naloxone 2 mg 1 film buccal DAILY 01/06/22 06/22/22 sublingual film (Suboxone) Previous Rx's Medication Instructions Recorded sofosbuvir 400 mg-velpatasvir 100 1 tab PO DAILY 12 weeks #84 tabs 02/08/ mg tablet (Epclusa) hydroxyzine HCl 25 mg tablet 25 mg PO BID PRN anxiety #30 tabs 03/22/22 trazodone 50 mg tablet 50 mg PO BEDTIME PRN Insomnia #30 03/22/22 tabs ezetimibe 10 mg tablet (Zetia) 10 mg PO DAILY #30 tabs 04/19/22 escitalopram oxalate 20 mg tablet 20 mg PO DAILY #30 tabs 06/16/22 azithromycin 250 mg tablet See Rx Instructions PO .COMPLEX #6 07/15/22 tabs cefpodoxime 200 mg tablet 200 mg PO BID 7 days #14 tabs 07/15/22 Allergies Allergy/AdvReac Type Severity Reaction Status Date / Time acetaminophen [From TYLENOL] Allergy Severe ANAPHYLAXIS Verified 07/15/22 10:58 Penicillins [PENICILLINS] Allergy Severe HIVES Verified 07/15/22 10:58 Review of Systems Review of Systems: Constitutional: No Fever, No Chills, No Fatigue, No Malaise ENT/Mouth: No Ear Pain, No Nasal Congestion,No sore throat, No Rhinorrhea, No Swallowing Difficulty Eyes: No Eye Pain, No Swelling, No Vision Changes Cardiovascular: + Chest Pain, No SOB, No Dyspnea on Exertion, No Orthopnea, No Edema, No Palpitations Respiratory: + Cough, + Sputum, No Dyspnea Gastrointestinal: No Nausea, No Vomiting, No Diarrhea, No Constipation, No Abdominal pain Genitourinary: No Dysuria, No Urinary Frequency, No Hematuria, No Urgency, No Flank Pain Musculoskeletal: No joint pain, No Myalgias, No Joint Swelling Skin: No Skin Lesions, No rash Neuro: No Weakness, No Headache Yes all other systems are reviewed and are negative Constitutional: Constitutional: Reports as per [facility] Past Medical History Attestation statement: The following information was validated with the patient. Source: old records reviewed Medical History Ankle syndesmosis disruption Bimalleolar fracture of left ankle Encounter to establish care Hepatic steatosis Low vitamin D level Melanoma Seizures Sinus tachycardia Skin cancer Unilateral agenesis of kidney Surgical History Hx of section Status post ORIF of fracture of ankle Family History Family History Mother Heart attack Father No problems noted. 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 Cognitive needs: No Hearing needs: No Vision needs: No Physical Exam Vital Signs: Vital Signs: Last Vital Signs Temp 97.9 F 07/15/22 10:58 Pulse 79 07/15/22 10:58 Resp 18 07/15/22 10:58 BP 136/94 H 07/15/22 10:58 Pulse Ox 96 07/15/22 10:58 O2 Del Method Room Air 07/15/22 10:58 BMI result Body Mass Index 25.7 Const: General: cooperative, healthy appearing and no acute distress Orientation/consciousness: patient oriented x3 Limitations: no limitations HEENT: Head: Yes normal to inspection and Yes atraumatic Ears: hearing grossly normal bilaterally General nose exam: Normal external nose present Face and sinus: Yes normal facial exam Eyes: General: appearance normal, both eyes and all related structures EOM: EOMs intact bilaterally Neck: Neck: Yes normal visual inspection and Yes no meningeal signs Chest: Other: + left anterior lateral rib/chest wall reproducible tenderness. No erythema/ ecchymosis, no flail chest, no crepitus Chest palpation & inspection: normal inspection of the chest, no crepitus and tenderness Resp: Effort & Inspection: normal respiratory effort, no respiratory distress and no stridor Auscultation: clear to auscultation bilaterally, no rales and no wheezes Cardio: Rate: regular rate Heart sounds: S1 normal heart sound present and S2 normal heart sound present GI: Inspection: Yes normal to inspection Palpation (GI): Soft to palpation, nontender, no guarding and not rigid : General: Yes no CVA tenderness Back/Spine/Pelvis: Back: no CVA tenderness Skin: Rashes: no rashes Wounds: no wounds Neuro: General: patient oriented x3, tone normal and no meningeal signs Gait exam (Neuro): Normal gait present Extrem: General: Yes normal to inspection, Yes no pedal edema and Yes no calf tenderness Course Course Course Narrative: XR chest 2V IMPRESSION: Mild bibasilar linear atelectasis/scarring. No acute cardiopulmonary process. > will obtain labs for further eval, and PE rule out -1220-- no leukocytosis. D-dimer elevated to 345 > will obtain CTA to rule out PE - chronically elevated AST/ALT -1320--patient eloped ED after obtaining CT. Pulled out own IV -1437--CT angio chest PE protocol IMPRESSION: 1. No pulmonary embolism. 2. Emphysema 3. Multifocal consolidation. 4. Atrophic left kidney. VTE: negative Fleischner criteria utilized. > patient eloped prior to official CT results, however called & informed patient of results, will send antibiotics to pharmacy Medications Administered Discontinued Medications Generic Name Dose Route Start Last Admin Trade Name Freq PRN Reason Stop Dose Admin Sodium Chloride 1,000 mls @ 999 mls/hr 07/15/22 12:15 07/15/22 13:36 Ns IV 07/15/22 13:15 Infused .Q1H1M LEONA Infusion Iohexol 100 ml 07/15/22 12:58 07/15/22 12:59 Iohexol 350 Mg/Ml 100 Ml Infus..Btl IV 07/15/22 12:59 65 ml ONCE ONE Administration Ketorolac Tromethamine 15 mg 07/15/22 11:51 07/15/22 11:59 Ketorolac Tromethamine 15 Mg/Ml Vial IVPUSH 07/15/22 11:52 15 mg ONCE ONE Administration Medical Decision Making Medical Decision Making [facility] Narrative: 41-year-old female with a past medical history of hepatic steatosis, melanoma, seizures, presenting to the ED complaining of left lateral chest wall pain x1 week worsen with deep breathing, movement and palpation. on exam vital signs stable, NAD, nontoxic appearing, chest wall pain reproducible as above, lungs CTA, abdomen soft/ nontender, no pedal edema. Concern for pneumonia vs costochondritis vs PE. lower suspicion for DVT, pancreatitis/cholecystitis or ACS plan: EKG, CXR, +/- labs Please refer to course for remaining clinical decision making, interpretation of labs/imaging results, and discussions with consultants and/or family members. Differential Diagnosis Differential Diagnoses: The differential diagnosis associated with the presentation includes As above Admission/Observation Consideration of admission/observation: Escalation of care including admission/observation considered Lab Data [facility] Lab Attestation statement: I reviewed the patient's lab results. 07/15/22 11:49 07/15/22 11:49 Labs: Lab Results 07/15/22 07/15/22 07/15/22 Range/Units 11:17 11:49 11:49 WBC 7.1 (4.8-10.8) X10*3/uL RBC 3.80 L (4.20-5.50) X10*6/uL Hgb 12.7 (12.0-16.0) g/dl Hct 36.5 L (37.0-47.0) % MCV 96.1 (80.0-98.0) fL MCH 33.4 H (27.0-33.0) pg MCHC 34.8 (31.0-35.0) g/dl RDW 14.1 (11.0-16.0) % Plt Count 246 D (160-400) X10*3/uL MPV 8.4 L (9.4-12.3) fL Immature Gran % (Auto) 0.1 (0.0-0.4) % Neut % (Auto) 54.2 (45-73) % Lymph % (Auto) 33.0 (20-40) % Motley % (Auto) 10.3 (2-11) % Eos % (Auto) 1.4 (0-4) % Baso % (Auto) 1.0 (0-2) % Lymph # (Auto) 2.3 (1.2-4.9) X10*3/uL Motley # (Auto) 0.7 (0.1-1.2) X10*3/uL Eos # (Auto) 0.1 (0.0-0.4) X10*3/uL Baso # (Auto) 0.1 (0.0-0.2) X10*3/uL Abs Immat Gran (auto) 0.01 (0.00-0.03) X10*3/uL Absolute Neuts (auto) 3.8 (2.0-8.3) x10*3/uL Absolute Nucleated RBC 0.020 H (0.0-0.012) X10*3/uL Nucleated RBC % (auto) 0.3 H (0.0-0.2) /100WBC D-Dimer High Sensitivty 345 NG/ML Sodium (135-145) mmol/L Potassium (3.3-5.1) mmol/L Chloride (96-108) mmol/L Carbon Dioxide (22-29) mmol/L Anion Gap (12-20) BUN (9-16) mg/dL Creatinine (0.5-1.4) mg/dL Estim Creat Clear Calc Estimated GFR Random Glucose (60-115) mg/dL Calcium (8.4-10.2) mg/dL Total Bilirubin (0.0-1.0) mg/dL Direct Bilirubin (0.0-0.5) mg/dL AST (5-31) U/L ALT (0-31) U/L Alkaline Phosphatase (39-117) U/L Troponin I High Sens (<3.5-17.0) ng/L B-Natriuretic Peptide (<100) pg/mL Total Protein (6.5-8.0) g/dL Albumin (3.5-5.0) g/dL Beta HCG, Quant mIU/mL COVID-19 ([facility]UA) Negative (Negative) COVID-19 Clin Com See Note 07/15/22 07/15/22 07/15/22 Range/Units 11:49 11:49 11:49 WBC (4.8-10.8) X10*3/uL RBC (4.20-5.50) X10*6/uL Hgb (12.0-16.0) g/dl Hct (37.0-47.0) % MCV (80.0-98.0) fL MCH (27.0-33.0) pg MCHC (31.0-35.0) g/dl RDW (11.0-16.0) % Plt Count (160-400) X10*3/uL MPV (9.4-12.3) fL Immature Gran % (Auto) (0.0-0.4) % Neut % (Auto) (45-73) % Lymph % (Auto) (20-40) % Motley % (Auto) (2-11) % Eos % (Auto) (0-4) % Baso % (Auto) (0-2) % Lymph # (Auto) (1.2-4.9) X10*3/uL Motley # (Auto) (0.1-1.2) X10*3/uL Eos # (Auto) (0.0-0.4) X10*3/uL Baso # (Auto) (0.0-0.2) X10*3/uL Abs Immat Gran (auto) (0.00-0.03) X10*3/uL Absolute Neuts (auto) (2.0-8.3) x10*3/uL Absolute Nucleated RBC (0.0-0.012) X10*3/uL Nucleated RBC % (auto) (0.0-0.2) /100WBC D-Dimer High Sensitivty NG/ML Sodium 140 (135-145) mmol/L Potassium 3.6 (3.3-5.1) mmol/L Chloride 105 (96-108) mmol/L Carbon Dioxide 25 (22-29) mmol/L Anion Gap 14 (12-20) BUN 9 (9-16) mg/dL Creatinine 0.74 (0.5-1.4) mg/dL Estim Creat Clear Calc 82.5 Estimated GFR > 60 Random Glucose 73 (60-115) mg/dL Calcium 9.0 D (8.4-10.2) mg/dL Total Bilirubin 0.4 (0.0-1.0) mg/dL Direct Bilirubin 0.2 (0.0-0.5) mg/dL AST 158 H (5-31) U/L ALT 88 H (0-31) U/L Alkaline Phosphatase 127 H (39-117) U/L Troponin I High Sens < 2.7 (<3.5-17.0) ng/L B-Natriuretic Peptide 102 H (<100) pg/mL Total Protein 6.7 (6.5-8.0) g/dL Albumin 3.9 (3.5-5.0) g/dL Beta HCG, Quant < 2 mIU/mL COVID-19 ([facility]UA) (Negative) COVID-19 Clin Com Independent Interpretation I performed an independent interpretation of an: EKG ( EKG normal sinus rhythm at a rate of 77. MI interval 128. QTC 434. No previous EKGs to compare. No STEMI) Radiology Impression Discussion of test interpretation with radiology: I have reviewed the radiologist's reading. External Record Review External record reviewed: Inpatient record, Office record, Outpatient record, Prior outpatient labs, Prior outpatient radiology, Primary care record and Outside ED record Tests considered The following testing was considered but not selected: As above Prescription Management I considered prescription management with: Pain Medication Chronic Conditions Patient?s care impacted by: Other Discharge Plan Discharge Clinical Impression: Multifocal pneumonia Patient Disposition: Elopement Prescriptions: New cefpodoxime 200 mg tablet 200 mg PO BID 7 Days Qty: 14 0RF Rx Instructions: must administer with a meal/food azithromycin 250 mg tablet See Rx Instructions .ROUTE .COMPLEX Qty: 6 0RF Rx Instructions: take 500 mg today (day 1), then 250 mg for 4 days (days 2-5) No Action trazodone 50 mg tablet 50 mg PO BEDTIME PRN (Reason: Insomnia) Qty: 30 1RF hydroxyzine HCl 25 mg tablet 25 mg PO BID PRN (Reason: anxiety) Qty: 30 1RF ezetimibe [Zetia] 10 mg tablet 10 mg PO DAILY Qty: 30 2RF escitalopram oxalate 20 mg tablet 20 mg PO DAILY Qty: 30 1RF gabapentin 300 mg capsule 1 cap PO BID aripiprazole 2 mg tablet 1 tab PO BEDTIME buprenorphine-naloxone [Suboxone] 8-2 mg film 1 film buccal DAILY sofosbuvir-velpatasvir [Epclusa] 400-100 mg tablet 1 tab PO DAILY 84 Days Qty: 84 0RF Referrals: Nory Givens, [employer] [Primary Care Provider] -
[2022-07-15 11:50] LABS: COVID-19 Test Negative (Negative); IDNOW Serial# 16C4AD1C
[2022-07-15 11:55] LABS: MANUAL DIFF FLAG NO
[2022-07-15 11:56] LABS: Basophils Absolute Auto 0.1 X10*3/uL (0.0-0.2); Eosinophils Absolute Auto 0.1 X10*3/uL (0.0-0.4); Eosinophils Percent Auto 1.4 % (0-4); Hematocrit 36.5 % (37.0-47.0); Hemoglobin 12.7 g/dl (12.0-16.0); Imm Gran Abs Auto 0.01 X10*3/uL (0.00-0.03); Imm Gran Pct Auto 0.1 % (0.0-0.4); Lymphocytes Absolute Auto 2.3 X10*3/uL (1.2-4.9); Mean Corpuscular HGB Conc 34.8 g/dl (31.0-35.0); Mean Corpuscular Hemoglobin 33.4 pg (27.0-33.0); Mean Corpuscular Volume 96.1 fL (80.0-98.0); Mean Platelet Volume 8.4 fL (9.4-12.3); Monocytes Absolute Auto 0.7 X10*3/uL (0.1-1.2); Monocytes Percent Auto 10.3 % (2-11); NRBC Pct Auto 0.3 /100WBC (0.0-0.2); Neutrophils Absolute Auto 3.8 x10*3/uL (2.0-8.3); Neutrophils Percent Auto 54.2 % (45-73); Platelet Count 246 X10*3/uL (160-400); Red Cell Distribution Width 14.1 % (11.0-16.0); White Blood Count 7.1 X10*3/uL (4.8-10.8)
[2022-07-15] MEDS: Ketorolac Tromethamine 15 MG/ML VIAL IVPUSH (11:59)
[2022-07-15 12:07] LABS: D Dimer High Sensitivity 345 NG/ML
--- NOTE | 2022-07-15 12:09 | PC.NURSE ---
Patient medicated by BREANN Lagunas per APR.
[2022-07-15 12:15] LABS: Alanine Aminotransferase 88 U/L (0-31); Albumin Level 3.9 g/dL (3.5-5.0); Alkaline Phosphatase 127 U/L (39-117); Anion Gap 14 (12-20); Aspartate Amino Transferase 158 U/L (5-31); Bilirubin Direct 0.2 mg/dL (0.0-0.5); Bilirubin Total 0.4 mg/dL (0.0-1.0); Blood Urea Nitrogen 9 mg/dL (9-16); Carbon Dioxide 25 mmol/L (22-29); Chloride 105 mmol/L (96-108); Creatinine Clr Calc Pharmacy 82.5; Estimated Glomerular Filt Rate > 60; Glucose Random 73 mg/dL (60-115); Potassium 3.6 mmol/L (3.3-5.1); Sodium 140 mmol/L (135-145); Total Protein 6.7 g/dL (6.5-8.0)
[2022-07-15] MEDS: 0.9 % Sodium Chloride 1,000 ML 999 ML IV (12:21)
[2022-07-15 12:39] LABS: Troponin-I High Sensitivity < 2.7 ng/L (<3.5-17.0)
[2022-07-15] MEDS: iohexoL 350 MG/ML 100 ML INFUS..BTL IV (12:59)
[2022-07-15 13:11] LABS: B Type Natriuretic Peptide 102 pg/mL (<100)
[2022-07-15 13:14] LABS: HCG Quantitative < 2 mIU/mL
--- NOTE | 2022-07-15 13:28 | PC.NURSE ---
visitor in room requested katherine zamarripa. upon authrs return to the room, IV had been removed and found on the floor with NS running. CT scan obtained- provider aware
== END 2022-07-15 15:09 | disposition left against medical advice (07) ==
PROVIDERS: Physician Assistant; Emergency Provider Emergency Medicine Emergency Medical Services; PCP Nurse Practitioner Family
DX: J18.9 Pneumonia, unspecified organism (principal); Z20.822 Contact with and (suspected) exposure to COVID-19; R06.02 Shortness of breath; F17.210 Nicotine dependence, cigarettes, uncomplicated; F12.90 Cannabis use, unspecified, uncomplicated; Z79.899 Other long term (current) drug therapy
CPT/HCPCS: 36415; 71046; 71275; 80048; 80076; 83880; 84484; 84702; 85025; 85379; 87635; 93005; 96361; 96374; 99284; J1885; Q9967

== ENCOUNTER 2022-10-12 09:06 | Emergency (ER) | payer OTHER, MEDICAID, SELFPAY ==
--- NOTE | 2022-10-12 | ECG_ITS ---
Test Reason : SEIZURE Blood Pressure : / mmHG Vent. Rate : 084 BPM Atrial Rate : 084 BPM P-R Int : 122 ms QRS Dur : 086 ms QT Int : 384 ms P-R-T Axes : 064 018 028 degrees QTc Int : 453 ms Normal sinus rhythm Normal ECG When compared with ECG of 15-JUL-2022 11:11, No significant change was found Referred By: Generic ED Physician Electronically Signed By:NILA BHANDARI
--- NOTE | ~2022-10-12 | CT_ITS ---
EXAMINATION: CT HEAD WITHOUT CONTRAST CLINICAL INFORMATION: Headache, trauma, pain after fall COMPARISON: Head CT of 10/21/2021 and 04/25/2020 TECHNIQUE: Contiguous axial imaging was performed from the skull base to vertex without intravenous administration of contrast. This CT examination was performed using dose optimization techniques as appropriate, variously including the following: *Automated exposure control *Adjustment of mA and/or kV according to patient size (this includes techniques or standardized protocols for targeted exams where dose is matched to indication/reason for exam; i.e. extremities or head) *Use of iterative reconstruction technique DLP: 580.30 mGy-cm FINDINGS: The ventricles and sulci are normal in size and configuration. [place]-white differentiation is preserved. No acute hemorrhage, mass effect or shift is evident. In the posterior fossa, the brainstem, cerebellum and fourth ventricle are unremarkable. There is a chronic deformity of the left lamina papyracea with herniation of the lamina papyracea and associated the paranasal sinuses and mastoid air cells are otherwise well pneumatized and clear. The bony calvarium is intact. Orbital fat into the left nasal cavity. CT/CT head/brain wo IV con IMPRESSION: 1. No acute intracranial pathology. 2. 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 3. Findings reported to Dr. Harris the emergency division at the time of interpretation on 10/12/2022 at 10:55 AM.
--- NOTE | ~2022-10-12 | CT_ITS ---
EXAMINATION: CT CERVICAL SPINE WITHOUT CONTRAST CLINICAL INFORMATION: Neck pain, trauma COMPARISON: Prior cervical spine cc of a 20 08/15/2021 TECHNIQUE: Multiple helical images were obtained through the cervical spine. Reformatted coronal and sagittal images were acquired from the helical data set. This CT examination was performed using dose optimization techniques as appropriate, variously including the following: *Automated exposure control *Adjustment of mA and/or kV according to patient size (this includes techniques or standardized protocols for targeted exams where dose is matched to indication/reason for exam; i.e. extremities or head) *Use of iterative reconstruction technique DLP: 300.83 mGy-cm FINDINGS: CT examination of the cervical spine show straightening of the normal cervical lordosis. There is no prevertebral soft tissue swelling. Vertebral body height and alignment are maintained. No fracture or bone lesion is evident. There are mild degenerative changes with posterior osteophyte ridge formation and disc space narrowing at C5-C6. At this level, mild left uncovertebral joint hypertrophic changes focally narrows the left foramen. Emphysematous changes are evident in the apices including a small subpleural bleb in the left apex. Subpleural bulla or bleb is evident in the left apex. No cervical mass or adenopathy is evident. CT/CT cervical spine wo IV con IMPRESSION: 1. No evidence of acute cervical spine fracture or subluxation. 2. Mild degenerative disc disease at C5-C6 with asymmetric left foraminal encroachment due to uncovertebral hypertrophy. 3. Biapical emphysematous changes, incompletely imaged on this cervical spine CT. 4. Findings of the brain and cervical spine CT were reported to Dr. Harris in the emergency room at 10:55 AM on 10/12/2022. Fleischner guidelines were followed.
[2022-10-12 09:12] VITALS: BP 160/94; BP 161/104; PULSE 68; PULSE 95; RESP 12; O2SAT 97; BMI 25.5
--- NOTE | 2022-10-12 09:12 | PC.NURSE ---
pt alert to self and place. pt unable to state what day it is. respirations even and unlabored. pt [place]thouse [place] a cigarette when she had a seizure. bystander reported pt to be convulsing for 2-3 minutes. on arrival ems stated pt was post ictal. pt has hx of seizures. pt reports taking medication as prescribed but unable to report which medication she takes. pt reports hitting the back of her head when she fell. pt reporting head pain. neuro in tact, weakness noted in the extremities. normal sinus on tele.
[2022-10-12 09:26] VITALS: TEMP 36.6
[2022-10-12] MEDS: 0.9 % Sodium Chloride 1,000 ML 999 ML IV (09:40)
--- NOTE | 2022-10-12 09:45 | ED_ITS ---
HPI - General Adult General Chief complaint: Seizure Stated complaint: SEIZURE 2-3 MINS,FALL,+COLLAR PER EMS Time Seen by Provider: 10/12/22 09:23 Source: patient and EMS Mode of arrival: EMS Limitations: no limitations History of Present Illness HPI narrative: 42-year-old female with history of seizure disorder reportedly on Keppra presents with a 2-3 minute tonic-clonic seizure. This is written witnessed by a bystander. Patient was standing outside the court house when this began. Patient's last seizure was reportedly 6 months ago. She reports that she is taking her medications appropriate although she did not take those. She denies any drug or alcohol use at this time. Patient was reportedly postictal prior to arrival. She denies any loss of bowel or bladder control. She did bite her tongue. She does complain of a headache. She did hit the occipital area of her head and also has some mild chest discomfort. Patient reports that her symptoms are moderate to severe. She does not remember any aura Related Data Home Medications Medication Instructions Recorded Confirmed aripiprazole 2 mg tablet 1 tab PO BEDTIME 09/18/20 06/22/22 gabapentin 300 mg capsule 1 cap PO BID 09/18/20 06/22/22 buprenorphine 8 mg-naloxone 2 mg 1 film buccal DAILY 01/06/22 06/22/22 sublingual film (Suboxone) Previous Rx's Medication Instructions Recorded sofosbuvir 400 mg-velpatasvir 100 1 tab PO DAILY 12 weeks #84 tabs 02/08/22 mg tablet (Epclusa) hydroxyzine HCl 25 mg tablet 25 mg PO BID PRN anxiety #30 tabs 03/22/22 trazodone 50 mg tablet 50 mg PO BEDTIME PRN Insomnia #30 03/22/22 tabs azithromycin 250 mg tablet See Rx Instructions PO .COMPLEX #6 07/15/22 tabs cefpodoxime 200 mg tablet 200 mg PO BID 7 days #14 tabs 07/15/22 escitalopram oxalate 20 mg tablet 20 mg PO DAILY #30 tabs 07/20/22 ezetimibe 10 mg tablet (Zetia) 10 mg PO DAILY #90 tabs 08/15/22 potassium chloride 20 mEq 20 meq PO DAILY #3 tabs 10/12/22 tablet,extended release Allergies Allergy/AdvReac Type Severity Reaction Status Date / Time acetaminophen [From TYLENOL] Allergy Severe ANAPHYLAXIS Verified 10/12/22 09:24 Penicillins [PENICILLINS] Allergy Severe HIVES Verified 10/12/22 09:24 Review of Systems Review of Systems: CONSTITUTIONAL: Denies weight loss, fever and chills. HEENT: Denies changes in vision and hearing. RESPIRATORY: Denies SOB and cough. CV: Denies palpitations + CP. GI: Denies abdominal pain, nausea, vomiting and diarrhea. : Denies dysuria and urinary frequency. MSK: Denies myalgia and joint pain. SKIN: Denies rash and pruritus. NEUROLOGICAL: + headache - syncope. PSYCHIATRIC: Denies recent changes in mood. Denies anxiety and depression. All other ROS are negative unless in HPI PMFSH Past Medical History Medical History Ankle syndesmosis disruption Bimalleolar fracture of left ankle Encounter to establish care Hepatic steatosis Low vitamin D level Melanoma Seizures Sinus tachycardia Skin cancer Unilateral agenesis of kidney Surgical History Hx of section Status post ORIF of fracture of ankle Family History Family History Mother Heart attack Father No problems noted. 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 Cognitive needs: No Hearing needs: No Vision needs: No Physical Exam ED Vital Signs: Vital Signs - 24 hr 10/12/22 09:12 10/12/22 09:26 Temperature 97.8 F Pulse Rate 68 Respiratory Rate 12 Blood Pressure 161/104 H Pulse Oximetry 97 Oxygen Delivery Method Room Air BMI result Body Mass Index 25.5 GEN: Well developed, no acute distress, alert, oriented HEENT: Normocephalic, atraumatic, normal external ears, nose appears normal, no oropharyngeal edema or exudates Eyes: Normal to appearance Neck: Supple, no lymphadenopathy Respiratory: Talks in complete sentences, no respiratory distress, clear to auscultation bilaterally Cardiovascular: Regular rate and rhythm, no murmurs rubs or gallops Abdomen: Soft, nontender, nondistended, no guarding, no rebound Back: No CVA tenderness Extremities: No clubbing cyanosis or edema Neurologic: No focal neurologic deficits, cranial nerves 2-12 intact, strength is 5/5 bilaterally Skin: No rash Course Course Course Narrative: The workup is complete. Patient has hypokalemia. Will recommend a couple days of additional potassium supplementation. Patient received Keppra 1000 mg. I will recommend to continue not driving. She should take her medications as previously directed follow up with her neurologist is no evidence of traumatic injury. Medications Administered Discontinued Medications Generic Name Dose Route Start Last Admin Trade Name Freq PRN Reason Stop Dose Admin Sodium Chloride 1,000 mls @ 999 mls/hr 10/12/22 09:30 10/12/22 09:40 Ns IV 10/12/22 10:30 999 mls/hr .Q1H1M LEONA Administration Levetiracetam 1,000 mg 10/12/22 09:52 10/12/22 10:28 Levetiracetam 1,000 Mg Tablet PO 10/12/22 09:53 1,000 mg ONCE ONE Administration Potassium Chloride 40 meq 10/12/22 10:21 10/12/22 10:28 Potassium Chloride Packet 20 Meq Packet PO 10/12/22 10:22 40 meq ONCE ONE Administration Medical Decision Making Medical Decision Making [facility] Narrative: 42-year-old female presents with a seizure. Examination reveals no focal d eficits. She did hit her head. She does complain of headache. She also complains of some some mild chest discomfort. Examination reveals reproducible chest wall tenderness. Lungs are clear to auscultation bilaterally. Cardiac exam is normal. Will obtain a CT scan of cervical spine and head to rule out acute traumatic injury. Meantime, will perform routine laboratory analysis. She is reportedly on Keppra. She did missed today's dose. Will order her medications at this time, re-evaluate. Differential diagnosis includes seizure, syncope, electrolyte abnormality, medication noncompliance, drug abuse. Differential Diagnosis Differential Diagnoses: The differential diagnosis associated with the presentation includes (see above) Lab Data [facility] Lab Attestation statement: I reviewed the patient's lab results. 10/12/22 09:49 10/12/22 09:49 Labs: Lab Results 10/12/22 10/12/22 10/12/22 Range/Units 09:49 09:49 09:49 WBC 5.8 (4.8-10.8) X10*3/uL RBC 3.61 L (4.20-5.50) X10*6/uL Hgb 12.7 (12.0-16.0) g/dl Hct 36.0 L (37.0-47.0) % MCV 99.7 H (80.0-98.0) fL MCH 35.2 H (27.0-33.0) pg MCHC 35.3 H (31.0-35.0) g/dl RDW 13.2 (11.0-16.0) % Plt Count 146 L D (160-400) X10*3/uL MPV 9.4 (9.4-12.3) fL Immature Gran % (Auto) 0.2 (0.0-0.4) % Neut % (Auto) 66.9 (45-73) % Lymph % (Auto) 16.6 L (20-40) % [place] % (Auto) 12.8 H (2-11) % Eos % (Auto) 2.6 (0-4) % Baso % (Auto) 0.9 (0-2) % Lymph # (Auto) 1.0 L (1.2-4.9) X10*3/uL [place] # (Auto) 0.7 (0.1-1.2) X10*3/uL Eos # (Auto) 0.2 (0.0-0.4) X10*3/uL Baso # (Auto) 0.1 (0.0-0.2) X10*3/uL Abs Immat Gran (auto) 0.01 (0.00-0.03) X10*3/uL Absolute Neuts (auto) 3.9 (2.0-8.3) x10*3/uL Absolute Nucleated RBC 0.000 (0.0-0.012) X10*3/uL Nucleated RBC % (auto) 0.0 (0.0-0.2) /100WBC Sodium 140 (135-145) mmol/L Potassium 2.8 L D (3.3-5.1) mmol/L Chloride 105 (96-108) mmol/L Carbon Dioxide 25 (22-29) mmol/L Anion Gap 13 (12-20) BUN 8 L (9-16) mg/dL Creatinine 0.77 (0.5-1.4) mg/dL Estim Creat Clear Calc 75.0 Estimated GFR > 60 Random Glucose 83 (60-115) mg/dL Lactic Acid 2.0 (0.5-2.0) mmol/L Calcium 10.9 H D (8.4-10.2) mg/dL Ammonia (13-55) umol/L Ethyl Alcohol < 10 mg/dL 10/12/22 Range/Units 09:49 WBC (4.8-10.8) X10*3/uL RBC (4.20-5.50) X10*6/uL Hgb (12.0-16.0) g/dl Hct (37.0-47.0) % MCV (80.0-98.0) fL MCH (27.0-33.0) pg MCHC (31.0-35.0) g/dl RDW (11.0-16.0) % Plt Count (160-400) X10*3/uL MPV (9.4-12.3) fL Immature Gran % (Auto) (0.0-0.4) % Neut % (Auto) (45-73) % Lymph % (Auto) (20-40) % [place] % (Auto) (2-11) % Eos % (Auto) (0-4) % Baso % (Auto) (0-2) % Lymph # (Auto) (1.2-4.9) X10*3/uL [place] # (Auto) (0.1-1.2) X10*3/uL Eos # (Auto) (0.0-0.4) X10*3/uL Baso # (Auto) (0.0-0.2) X10*3/uL Abs Immat Gran (auto) (0.00-0.03) X10*3/uL Absolute Neuts (auto) (2.0-8.3) x10*3/uL Absolute Nucleated RBC (0.0-0.012) X10*3/uL Nucleated RBC % (auto) (0.0-0.2) /100WBC Sodium (135-145) mmol/L Potassium (3.3-5.1) mmol/L Chloride (96-108) mmol/L Carbon Dioxide (22-29) mmol/L Anion Gap (12-20) BUN (9-16) mg/dL Creatinine (0.5-1.4) mg/dL Estim Creat Clear Calc Estimated GFR Random Glucose (60-115) mg/dL Lactic Acid (0.5-2.0) mmol/L Calcium (8.4-10.2) mg/dL Ammonia 23 (13-55) umol/L Ethyl Alcohol mg/dL Independent Interpretation I performed an independent interpretation of an: EKG (Normal sinus rhythm heart rate 84, normal intervals, no acute ST elevations or depression) and CT Scan Interpretation: Head, cervical spine, no acute traumatic injury Radiology Impression Discussion of test interpretation with radiology: I have reviewed the radiologist's reading. Radiologist Impression: CT/CT cervical spine wo IV con IMPRESSION: ? 1. No evidence of acute cervical spine fracture or subluxation. ? 2. Mild degenerative disc disease at C5-C6 with asymmetric left foraminal encroachment due to uncovertebral hypertrophy. ? 3. Biapical emphysematous changes, incompletely imaged on this cervical spine CT.? ? 4. Findings of the brain and cervical spine CT were reported to Dr. Harris in the emergency room at 10:55 AM on 10/12/2022. ? Fleischner guidelines were followed. Dictated By: Roshan Hall MD Signed By: <Electronically signed by Roshan Hall MD in OV> 10/12/22 1057 Independent Historian Clinical information obtained from an independent historian. History obtained from or confirmed by: EMS Prescription Management I considered prescription management with: Pain Medication Critical Care Time Critical Care Time Critical Care Time: Yes Total Critical Care Time: 40 Attestation: Approximately 40+ minutes of critical care time was spent with this patient. Care included direct patient care, re-evaluation, consideration potentially life-threatening condition such as subdural, epidural or subarachnoid hemorrhage. Also, acute seizure disorder. Additional time was spent with documentation, review of medical data interpretation and medical data get the medical management. All this was all outside of any medical procedures. Discharge Plan Discharge Clinical Impression: Seizures, Acute hypokalemia Patient Disposition: Home, Self-Care Instructions: Potassium Content of Foods List (ED), Hypokalemia (ED), Recurrent Seizures in Adults (ED) Prescriptions: New potassium chloride 20 mEq tablet extended release 20 meq PO DAILY Qty: 3 0RF No Action trazodone 50 mg tablet 50 mg PO BEDTIME PRN (Reason: Insomnia) Qty: 30 1RF hydroxyzine HCl 25 mg tablet 25 mg PO BID PRN (Reason: anxiety) Qty: 30 1RF escitalopram oxalate 20 mg tablet 20 mg PO DAILY Qty: 30 1RF ezetimibe [Zetia] 10 mg tablet 10 mg PO DAILY Qty: 90 2RF gabapentin 300 mg capsule 1 cap PO BID aripiprazole 2 mg tablet 1 tab PO BEDTIME cefpodoxime 200 mg tablet 200 mg PO BID 7 Days Qty: 14 0RF Rx Instructions: must administer with a meal/food azithromycin 250 mg tablet See Rx Instructions .ROUTE .COMPLEX Qty: 6 0RF Rx Instructions: take 500 mg today (day 1), then 250 mg for 4 days (days 2-5) buprenorphine-naloxone [Suboxone] 8-2 mg film 1 film buccal DAILY sofosbuvir-velpatasvir [Epclusa] 400-100 mg tablet 1 tab PO DAILY 84 Days Qty: 84 0RF Referrals: Nory Givens FNP [Primary Care Provider] - 2 days (Should repeat potassium level in 2-3 days)
[2022-10-12 09:55] LABS: MANUAL DIFF FLAG NO
[2022-10-12 09:59] LABS: Basophils Absolute Auto 0.1 X10*3/uL (0.0-0.2); Basophils Percent Auto 0.9 % (0-2); Eosinophils Absolute Auto 0.2 X10*3/uL (0.0-0.4); Eosinophils Percent Auto 2.6 % (0-4); Hemoglobin 12.7 g/dl (12.0-16.0); Imm Gran Abs Auto 0.01 X10*3/uL (0.00-0.03); Imm Gran Pct Auto 0.2 % (0.0-0.4); Lymphocytes Percent Auto 16.6 % (20-40); Mean Corpuscular HGB Conc 35.3 g/dl (31.0-35.0); Mean Corpuscular Hemoglobin 35.2 pg (27.0-33.0); Mean Corpuscular Volume 99.7 fL (80.0-98.0); Mean Platelet Volume 9.4 fL (9.4-12.3); Monocytes Absolute Auto 0.7 X10*3/uL (0.1-1.2); Monocytes Percent Auto 12.8 % (2-11); Neutrophils Absolute Auto 3.9 x10*3/uL (2.0-8.3); Neutrophils Percent Auto 66.9 % (45-73); Platelet Count 146 X10*3/uL (160-400); Red Blood Count 3.61 X10*6/uL (4.20-5.50); Red Cell Distribution Width 13.2 % (11.0-16.0); White Blood Count 5.8 X10*3/uL (4.8-10.8)
[2022-10-12 10:03] LABS: Ammonia 23 umol/L (13-55)
[2022-10-12 10:10] LABS: Anion Gap 13 (12-20); Blood Urea Nitrogen 8 mg/dL (9-16); Calcium 10.9 mg/dL (8.4-10.2); Carbon Dioxide 25 mmol/L (22-29); Chloride 105 mmol/L (96-108); Estimated Glomerular Filt Rate > 60; Ethanol < 10 mg/dL; Glucose Random 83 mg/dL (60-115); Potassium 2.8 mmol/L (3.3-5.1); Sodium 140 mmol/L (135-145)
[2022-10-12] MEDS: levETIRAcetam 1,000 MG TABLET 1000 MG PO (10:28)
[2022-10-12] MEDS: Potassium Chloride Packet 20 MEQ PACKET 40 MEQ PO (10:28)
--- NOTE | 2022-10-12 11:15 | PC.NURSE ---
no seizure activity noted. respirations even and unlabored. pt a&ox3. Neuro in tact. pt ambulating to bathroom with steady gait. normal sinus on tele.
[2022-10-12 11:22] LABS: Appearance Urine Cloudy; Color Urine Yellow; Glucose Urine UA Negative (Negative); Leukocyte Esterase Urine Large (3+) (Negative); Nitrite Urine Negative (Negative); PH 6.5 (5.0-9.0); Specific Gravity - Urine <= 1.005 (1.005-1.025); UMIC TRIGGER UACC YES; Urine Blood Trace (Negative); Urine Ketones Negative (Negative); Urine Protein Negative (Neg-Trace)
[2022-10-12 11:24] LABS: Bacteria Urine 4+ (None Seen); Hyaline Casts Urine 0-2 /LPF (0-2); RBC Urine 0-2 /HPF (0-2); UACC Culture Trigger YES; WBC Urine >50 /HPF (0-5)
[2022-10-12 11:28] LABS: Amphetamine Screen Urine Not Detected (Not Detect); Barbiturates, Urine Not Detected (Not Detect); Benzodiazepines Screen Urine Not Detected (Not Detect); Cannabinoid Screen Urine POSITIVE (Not Detect); Cocaine Screen Urine Not Detected (Not Detect); Fentanyl, urine Not Detected (Not Detect); Opiate Screen Urine Not Detected (Not Detect); Phencyclidine Screen Urine Not Detected (Not Detect)
--- NOTE | 2022-10-12 12:12 | PC.NURSE ---
this rn called the pt bc pt left the hospital without d/c paperwork and pt did have an iv in place by ems, pt did report that she had a family emergency and needed to leave, pt reported taking out her own iv, iv was found on the top of cart and this rn spoke to AJ the pct and she also reports that the IV was on top of the cart
== END 2022-10-12 12:19 | disposition home or self-care (01) ==
PROVIDERS: Physician Assistant Medical; Emergency Provider Emergency Medicine; PCP Nurse Practitioner Family
DX: R56.9 Unspecified convulsions (principal); E87.6 Hypokalemia; F11.20 Opioid dependence, uncomplicated; F17.210 Nicotine dependence, cigarettes, uncomplicated; F12.90 Cannabis use, unspecified, uncomplicated; Z79.899 Other long term (current) drug therapy
CPT/HCPCS: 36415; 70450; 72125; 80048; 80307; 81001; 82140; 83605; 85025; 87086; 93005; 96374; 99284; 99285

== ENCOUNTER 2022-10-27 10:51 | Emergency (ER) | payer OTHER, SELFPAY ==
[2022-10-27 10:55] VITALS: BP 124/86; PULSE 71; O2SAT 99
[2022-10-27 10:58] VITALS: BP 127/84; PULSE 84; RESP 18; TEMP 36.6; O2SAT 94; BMI 22.1
--- NOTE | 2022-10-27 11:06 | ED.ALCOHOL ---
HPI - Alcohol General Chief Complaint: ETOH/Substance Use Stated Complaint: ETOH Time Seen by Provider: 10/27/22 11:04 Source: patient Mode of arrival: EMS Limitations: other (refuses to answer) History of Present Illness HPI narrative: called from motel no trauma no SI refuses workup and wants to leave MD complaint: alcohol intoxication Last drink: Hours (ago) Chronic alcohol use: Yes Previous visits for alcohol intoxication: Yes Recent trauma: No Associated symptoms: denies other symptoms Treatments prior to arrival: none Related Data Home Medications Medication Instructions Recorded Confirmed aripiprazole 2 mg tablet 1 tab PO BEDTIME 09/18/20 06/22/22 gabapentin 300 mg capsule 1 cap PO BID 09/18/20 06/22/22 buprenorphine 8 mg-naloxone 2 mg 1 film buccal DAILY 01/06/22 06/22/22 sublingual film (Suboxone) Previous Rx's Medication Instructions Recorded sofosbuvir 400 mg-velpatasvir 100 1 tab PO DAILY 12 weeks #84 tabs 02/08/22 mg tablet (Epclusa) hydroxyzine HCl 25 mg tablet 25 mg PO BID PRN anxiety #30 tabs 03/22/22 trazodone 50 mg tablet 50 mg PO BEDTIME PRN Insomnia #30 03/22/22 tabs azithromycin 250 mg tablet See Rx Instructions PO .COMPLEX #6 07/15/22 tabs cefpodoxime 200 mg tablet 200 mg PO BID 7 days #14 tabs 07/15/22 escitalopram oxalate 20 mg tablet 20 mg PO DAILY #30 tabs 07/20/22 ezetimibe 10 mg tablet (Zetia) 10 mg PO DAILY #90 tabs 08/15/22 potassium chloride 20 mEq 20 meq PO DAILY #3 tabs 10/12/22 tablet,extended release Allergies Allergy/AdvReac Type Severity Reaction Status Date / Time acetaminophen [From TYLENOL] Allergy Severe ANAPHYLAXIS Verified 10/12/22 09:24 Penicillins [PENICILLINS] Allergy Severe HIVES Verified 10/12/22 09:24 Review of Systems Review of Systems: ROS unable to be obtained due to poor cooperation PMFSH Past Medical History Source: old records reviewed Medical History Ankle syndesmosis disruption Bimalleolar fracture of left ankle Encounter to establish care Hepatic steatosis Low vitamin D level Melanoma Seizures Sinus tachycardia Skin cancer Unilateral agenesis of kidney Surgical History Hx of section Status post ORIF of fracture of ankle Family History Family History Mother Heart attack Father No problems noted. 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 Oriented X3. No acute distress. refusing care ETOH odor. steady gait, GCS 15 Eyes: Pupils equal, round and reactive to light. ENT: atraumatic Neck: Normal inspection. CVS: refuses Respiratory: refuses Abdomen: atraumatic Skin: Skin warm and dry. Normal skin color. Extremities: No lower extremity edema. Neuro: Oriented X 3. moves all extremities Medical Decision Making Medical Decision Making MDM Narrative: 42 yo female who was drinking today no trauma or SI reported she has a steady gait, she is alert and oriented x 3, GCS 15 she is refusing care and walked out of the ED during interview. She refused all treatment. She is not sectionable and I do not think she presents a safety harm to herself physically. Differential Diagnosis Differential Diagnoses: The differential diagnosis associated with the presentation includes alcohol abuse Admission/Observation Consideration of admission/observation: Escalation of care including admission/observation considered refuses any treatment eloped Independent Historian Clinical information obtained from an independent historian. History obtained from or confirmed by: EMS External Record Review External record reviewed: Inpatient record Social Determinants Patient?s care significantly limited by Social Determinants of Health including: Low income and Alcoholism and drug addiction in family Discharge Plan Discharge Clinical Impression: Alcohol abuse Patient Disposition: Elopement Prescriptions: No Action trazodone 50 mg tablet 50 mg PO BEDTIME PRN (Reason: Insomnia) Qty: 30 1RF hydroxyzine HCl 25 mg tablet 25 mg PO BID PRN (Reason: anxiety) Qty: 30 1RF escitalopram oxalate 20 mg tablet 20 mg PO DAILY Qty: 30 1RF ezetimibe [Zetia] 10 mg tablet 10 mg PO DAILY Qty: 90 2RF gabapentin 300 mg capsule 1 cap PO BID aripiprazole 2 mg tablet 1 tab PO BEDTIME potassium chloride 20 mEq tablet extended release 20 meq PO DAILY Qty: 3 0RF cefpodoxime 200 mg tablet 200 mg PO BID 7 Days Qty: 14 0RF Rx Instructions: must administer with a meal/food azithromycin 250 mg tablet See Rx Instructions .ROUTE .COMPLEX Qty: 6 0RF Rx Instructions: take 500 mg today (day 1), then 250 mg for 4 days (days 2-5) buprenorphine-naloxone [Suboxone] 8-2 mg film 1 film buccal DAILY sofosbuvir-velpatasvir [Epclusa] 400-100 mg tablet 1 tab PO DAILY 84 Days Qty: 84 0RF
== END 2022-10-27 11:21 | disposition left against medical advice (07) ==
PROVIDERS: Emergency Provider Emergency Medicine; PCP Nurse Practitioner Family
DX: F10.10 Alcohol abuse, uncomplicated (principal); F17.200 Nicotine dependence, unspecified, uncomplicated; Z71.6 Tobacco abuse counseling; Z79.899 Other long term (current) drug therapy
CPT/HCPCS: 99282

== ENCOUNTER 2022-10-27 12:33 | Emergency (ER) | payer OTHER, SELFPAY ==
[2022-10-27 12:37] VITALS: BP 110/71; PULSE 110; RESP 18; TEMP 36.7; O2SAT 99; BMI 25.4
--- NOTE | 2022-10-27 12:37 | ED_ITS ---
HPI - Alcohol General Chief Complaint: ETOH/Substance Use Stated Complaint: ETOH, looking for detox Time Seen by Provider: 10/27/22 14:29 Source: patient and old records reviewed Mode of arrival: ambulatory Limitations: no limitations History of Present Illness HPI narrative: 42 yo female with hx of seizures and ETOH abuse who eloped earlier comes back she is involved with [facility] and was brought back with a worker patient now requesting detox - she has multiple nips in her pants. MD complaint: alcohol intoxication and desires rehab Last drink: Just prior to admission Chronic alcohol use: Yes Previous visits for alcohol intoxication: Yes Recent trauma: No Associated symptoms: denies other symptoms Treatments prior to arrival: none Related Data Home Medications Medication Instructions Recorded Confirmed aripiprazole 2 mg tablet 1 tab PO BEDTIME 09/18/20 06/22/22 gabapentin 300 mg capsule 1 cap PO BID 09/18/20 06/22/22 buprenorphine 8 mg-naloxone 2 mg 1 film buccal DAILY 01/06/22 06/22/22 sublingual film (Suboxone) Previous Rx's Medication Instructions Recorded sofosbuvir 400 mg-velpatasvir 100 1 tab PO DAILY 12 weeks #84 tabs 02/08/22 mg tablet (Epclusa) hydroxyzine HCl 25 mg tablet 25 mg PO BID PRN anxiety #30 tabs 03/22/22 trazodone 50 mg tablet 50 mg PO BEDTIME PRN Insomnia #30 03/22/22 tabs azithromycin 250 mg tablet See Rx Instructions PO .COMPLEX #6 07/15/22 tabs cefpodoxime 200 mg tablet 200 mg PO BID 7 days #14 tabs 07/15/22 escitalopram oxalate 20 mg tablet 20 mg PO DAILY #30 tabs 07/20/22 ezetimibe 10 mg tablet (Zetia) 10 mg PO DAILY #90 tabs 08/15/22 potassium chloride 20 mEq 20 meq PO DAILY #3 tabs 10/12/22 tablet,extended release Allergies Allergy/AdvReac Type Severity Reaction Status Date / Time acetaminophen [From TYLENOL] Allergy Severe ANAPHYLAXIS Verified 10/12/22 09:24 Penicillins [PENICILLINS] Allergy Severe HIVES Verified 10/12/22 09:24 Review of Systems Review of Systems: Constitutional : No Fever, No Chills ENT/Mouth : No Ear Pain, No Nasal Congestion, No sore throat Eyes: No Eye Pain, No Swelling, No Redness Cardiovascular : No Chest Pain, No SOB Respiratory : No Cough, No Sputum, No Dyspnea Gastrointestinal : No Nausea, No Vomiting, No Diarrhea, No Hematochezia, No Melena Genitourinary : No Dysuria, No Urinary Frequency, No Hematuria Musculoskeletal : No Myalgias Skin : No Skin Lesions, No rash Neuro : No Weakness, No Numbness, No Paresthesias, No Dizziness, No Headache Psych : positive Anxiety, positive Depression, no SI/HI Heme/Lymph: No Lymphadenopathy Endocrine : No Polyuria, No Polydipsia All other systems reviewed and are negative [facility] Past Medical History Attestation statement: The following information was validated with the patient. Medical History Ankle syndesmosis disruption Bimalleolar fracture of left ankle Encounter to establish care Hepatic steatosis Low vitamin D level Melanoma Seizures Sinus tachycardia Skin cancer Unilateral agenesis of kidney Surgical History Hx of section Status post ORIF of fracture of ankle Family History Family History Mother Heart attack Father No problems noted. 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 Oriented X3. No acute distress. ETOH odor. loud at times. less aggressive than prior visit. multiple nips in her pants Eyes: Pupils equal, round and reactive to light. ENT: Pharynx normal. Neck: Normal inspection. Neck supple. CVS: Normal heart rate and rhythm. Pulses normal. Respiratory: No respiratory distress. Breath sounds normal. Abdomen: Soft and nontender. Skin: Skin warm and dry. Normal skin color. Normal skin turgor. Extremities: No lower extremity edema. Neuro: Oriented X 3. No motor deficit. No sensory deficit. Course Course Course Narrative: This is an RME: Additional HPI, ROS, PE not included below will be deferred to primary provider. This is a [id number] presenting to the ER with complaints of not fe eling well . Patient is struggling with etoh abuse and is now looking for detox. She is here with a [place] [id number] staff member. Patient was seen here in the emergency department 2 hours ago however refuse treatment and left. Vital signs stable. Plan: Labs, UA Reevaluation(s) Reevaluation #1: Patient placed in physician observation at 243pm. VS stable, labs at baseline, pending recovery team input Reevaluation #2: patient wishes to be discharged. Given outpatient resources. Time: 17:18 Medical Decision Making Medical Decision Making [facility] Narrative: 42 yo female with ETOH abuse and seizures returns to ED without SI requesting d etox. she is more calm and cooperative at this time with a staff member. Differential Diagnosis Differential Diagnoses: The differential diagnosis associated with the presentation includes ETOH abuse Admission/Observation Consideration of admission/observation: Escalation of care including admission/observation considered observe until recovery team involved Consult Healthcare Provider Management of the patient was discussed with: Behavioral Health Provider Lab Data [facility] Lab Attestation statement: I reviewed the patient's lab results. LFTS as suspected hx of same in past 10/27/22 13:14 10/27/22 13:14 Labs: Lab Results 10/27/22 10/27/22 Range/Units 13:14 13:14 WBC 9.0 (4.8-10.8) X10*3/uL RBC 4.62 D (4.20-5.50) X10*6/uL Hgb 16.0 D (12.0-16.0) g/dl Hct 46.8 D (37.0-47.0) % MCV 101.3 H (80.0-98.0) fL MCH 34.6 H (27.0-33.0) pg MCHC 34.2 (31.0-35.0) g/dl RDW 13.0 (11.0-16.0) % Plt Count 506 H D (160-400) X10*3/uL MPV 9.3 L (9.4-12.3) fL Immature Gran % (Auto) 0.2 (0.0-0.4) % Neut % (Auto) 39.6 L (45-73) % Lymph % (Auto) 51.0 H (20-40) % [place] % (Auto) 6.1 (2-11) % Eos % (Auto) 1.1 (0-4) % Baso % (Auto) 2.0 (0-2) % Lymph # (Auto) 4.6 (1.2-4.9) X10*3/uL [place] # (Auto) 0.6 (0.1-1.2) X10*3/uL Eos # (Auto) 0.1 (0.0-0.4) X10*3/uL Baso # (Auto) 0.2 (0.0-0.2) X10*3/uL Abs Immat Gran (auto) 0.02 (0.00-0.03) X10*3/uL Absolute Neuts (auto) 3.5 (2.0-8.3) x10*3/uL Absolute Nucleated RBC 0.000 (0.0-0.012) X10*3/uL Nucleated RBC % (auto) 0.0 (0.0-0.2) /100WBC Sodium 145 (135-145) mmol/L Potassium 3.9 D (3.3-5.1) mmol/L Chloride 110 H (96-108) mmol/L Carbon Dioxide 21 L (22-29) mmol/L Anion Gap 18 (12-20) BUN 14 (9-16) mg/dL Creatinine 1.04 (0.5-1.4) mg/dL Estim Creat Clear Calc 55.4 Estimated GFR 58 Random Glucose 74 (60-115) mg/dL Calcium 10.5 H (8.4-10.2) mg/dL Magnesium 2.1 (1.6-2.6) mg/dL Total Bilirubin 0.4 (0.0-1.0) mg/dL Direct Bilirubin 0.2 (0.0-0.5) mg/dL AST 222 H (5-31) U/L ALT 73 H (0-31) U/L Alkaline Phosphatase 134 H (39-117) U/L Total Protein 8.5 H (6.5-8.0) g/dL Albumin 4.8 (3.5-5.0) g/dL Ethyl Alcohol 403 H* mg/dL Independent Historian Clinical information obtained from an independent historian. History obtained from or confirmed by: Other External Record Review External record reviewed: Inpatient record Social Determinants Patient?s care significantly limited by Social Determinants of Health including: Inadequate housing, Low income, Alcoholism and drug addiction in family and Problems related to primary support group Discharge Plan Discharge Clinical Impression: Alcohol abuse Patient Disposition: Home, Self-Care Instructions: Alcohol Use Disorder (ED) Additional Instructions: please go to respite as planned. return for fevers vomiting chest pain trouble breathing worsening symptoms or any other concerns. Prescriptions: No Action trazodone 50 mg tablet 50 mg PO BEDTIME PRN (Reason: Insomnia) Qty: 30 1RF hydroxyzine HCl 25 mg tablet 25 mg PO BID PRN (Reason: anxiety) Qty: 30 1RF escitalopram oxalate 20 mg tablet 20 mg PO DAILY Qty: 30 1RF ezetimibe [Zetia] 10 mg tablet 10 mg PO DAILY Qty: 90 2RF gabapentin 300 mg capsule 1 cap PO BID aripiprazole 2 mg tablet 1 tab PO BEDTIME potassium chloride 20 mEq tablet extended release 20 meq PO DAILY Qty: 3 0RF cefpodoxime 200 mg tablet 200 mg PO BID 7 Days Qty: 14 0RF Rx Instructions: must administer with a meal/food azithromycin 250 mg tablet See Rx Instructions .ROUTE .COMPLEX Qty: 6 0RF Rx Instructions: take 500 mg today (day 1), then 250 mg for 4 days (days 2-5) buprenorphine-naloxone [Suboxone] 8-2 mg film 1 film buccal DAILY sofosbuvir-velpatasvir [Epclusa] 400-100 mg tablet 1 tab PO DAILY 84 Days Qty: 84 0RF Referrals: [facility] [place] Behavioral Health Services [Provider Group]
[2022-10-27 13:24] LABS: MANUAL DIFF FLAG NO
[2022-10-27 13:30] LABS: Basophils Absolute Auto 0.2 X10*3/uL (0.0-0.2); Eosinophils Absolute Auto 0.1 X10*3/uL (0.0-0.4); Eosinophils Percent Auto 1.1 % (0-4); Hematocrit 46.8 % (37.0-47.0); Imm Gran Abs Auto 0.02 X10*3/uL (0.00-0.03); Imm Gran Pct Auto 0.2 % (0.0-0.4); Lymphocytes Absolute Auto 4.6 X10*3/uL (1.2-4.9); Mean Corpuscular HGB Conc 34.2 g/dl (31.0-35.0); Mean Corpuscular Hemoglobin 34.6 pg (27.0-33.0); Mean Corpuscular Volume 101.3 fL (80.0-98.0); Mean Platelet Volume 9.3 fL (9.4-12.3); Monocytes Absolute Auto 0.6 X10*3/uL (0.1-1.2); Monocytes Percent Auto 6.1 % (2-11); Neutrophils Absolute Auto 3.5 x10*3/uL (2.0-8.3); Neutrophils Percent Auto 39.6 % (45-73); Platelet Count 506 X10*3/uL (160-400); Red Blood Count 4.62 X10*6/uL (4.20-5.50)
[2022-10-27 13:41] LABS: Alanine Aminotransferase 73 U/L (0-31); Albumin Level 4.8 g/dL (3.5-5.0); Alkaline Phosphatase 134 U/L (39-117); Anion Gap 18 (12-20); Aspartate Amino Transferase 222 U/L (5-31); Bilirubin Direct 0.2 mg/dL (0.0-0.5); Bilirubin Total 0.4 mg/dL (0.0-1.0); Blood Urea Nitrogen 14 mg/dL (9-16); Calcium 10.5 mg/dL (8.4-10.2); Carbon Dioxide 21 mmol/L (22-29); Chloride 110 mmol/L (96-108); Creatinine Clr Calc Pharmacy 55.4; Estimated Glomerular Filt Rate 58; Ethanol 403 mg/dL; Glucose Random 74 mg/dL (60-115); Magnesium 2.1 mg/dL (1.6-2.6); Potassium 3.9 mmol/L (3.3-5.1); Sodium 145 mmol/L (135-145); Total Protein 8.5 g/dL (6.5-8.0)
--- NOTE | 2022-10-27 15:46 | MHC.RECOVSUP ---
Met with pt and [facility] in ED6H. Pt would like ATS at this time and a bed search is in place.
[2022-10-27 16:00] VITALS: BP 118/83; PULSE 102; RESP 16; TEMP 36.5; O2SAT 99
[2022-10-27 17:40] LABS: Appearance Urine Cloudy; Color Urine Yellow; Glucose Urine UA Negative (Negative); Leukocyte Esterase Urine Small (1+) (Negative); Nitrite Urine Negative (Negative); PH 5.5 (5.0-9.0); UMIC TRIGGER UACC YES; Urine Blood Negative (Negative); Urine Ketones Negative (Negative); Urine Protein 100 (2+) mg/dL (Neg-Trace)
[2022-10-27 17:46] LABS: Amphetamine Screen Urine Not Detected (Not Detect); Barbiturates, Urine Not Detected (Not Detect); Benzodiazepines Screen Urine Not Detected (Not Detect); Cannabinoid Screen Urine POSITIVE (Not Detect); Cocaine Screen Urine POSITIVE (Not Detect); Fentanyl, urine Not Detected (Not Detect); Opiate Screen Urine Not Detected (Not Detect); Phencyclidine Screen Urine Not Detected (Not Detect)
[2022-10-27 17:48] LABS: Bacteria Urine 1+ (None Seen); RBC Urine 0-2 /HPF (0-2); UACC Culture Trigger YES
== END 2022-10-27 18:45 | disposition home or self-care (01) ==
PROVIDERS: Physician Assistant Medical; Emergency Provider Emergency Medicine
DX: F10.129 Alcohol abuse with intoxication, unspecified (principal); F10.10 Alcohol abuse, uncomplicated; Y90.8 Blood alcohol level of 240 mg/100 ml or more; F17.210 Nicotine dependence, cigarettes, uncomplicated; Z71.6 Tobacco abuse counseling; Z71.41 Alcohol abuse counseling and surveillance of alcoholic; Z79.899 Other long term (current) drug therapy
CPT/HCPCS: 36415; 80048; 80076; 80307; 81001; 83735; 85025; 87086; 99283

== ENCOUNTER 2022-12-21 18:15 | Emergency (ER) | payer OTHER, SELFPAY ==
--- NOTE | ~2022-12-21 | XR_ITS ---
EXAMINATION: XR CHEST CLINICAL INFORMATION: Pain. COMPARISON: Chest radiograph 07/15/2022. TECHNIQUE: 2 views of the chest were obtained. FINDINGS: Normal appearance of the cardiomediastinal silhouette. No focal airspace opacity, pleural effusion or pneumothorax. No acute osseous findings. Visualized upper abdomen is within normal limits. XR/XR chest 2V IMPRESSION: No acute cardiopulmonary findings.
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
[2022-12-21 18:26] VITALS: BP 113/75; BP 115/72; PULSE 78; PULSE 89; RESP 18; TEMP 36.8; O2SAT 99; BMI 26.3
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
--- NOTE | 2022-12-21 18:30 | ECG_ITS ---
Test Reason : PAIN Blood Pressure : / mmHG Vent. Rate : 092 BPM Atrial Rate : 092 BPM P-R Int : 130 ms QRS Dur : 078 ms QT Int : 340 ms P-R-T Axes : 077 064 078 degrees QTc Int : 420 ms Normal sinus rhythm RSR' or QR pattern in V1 suggests right ventricular conduction delay Nonspecific ST abnormality Abnormal ECG When compared with ECG of 12-OCT-2022 09:16, T wave amplitude has decreased in Lateral leads Referred By: Hamilton Handley Electronically Signed By:RACHEL APONTE MD
[2022-12-21 20:50] VITALS: BP 117/80; PULSE 88; RESP 16; TEMP 36.9; O2SAT 98
--- NOTE | 2022-12-21 21:28 | PC.NURSE ---
Patient is alert and oriented x5, VSS. Patient reports pain in posterior neck 5/10 at present, chest pain is intermittent 0/10 at present. Patient denies dizziness/lightheadedness at this time. Plan for discharge discussed with patient, who is in agreement and verbalized understanding of discharge instructions.
== END 2022-12-21 21:32 | disposition home or self-care (01) ==
PROVIDERS: Emergency Provider Internal Medicine
DX: S13.4XXA Sprain of ligaments of cervical spine, initial encounter (principal); R07.89 Other chest pain; R51.9 Headache, unspecified; V43.52XA Car driver injured in collision with other type car in traffic accident, initial encounter; Y93.9 Activity, unspecified; Y92.410 Unspecified street and highway as the place of occurrence of the external cause; Y99.9 Unspecified external cause status
CPT/HCPCS: 70450; 71046; 93005; 99284; 99285

== ENCOUNTER 2024-01-15 09:32 | Inpatient (IN) | payer MEDICARE, MEDICAID, SELFPAY ==
--- NOTE | ~2024-01-15 | CT_ITS ---
EXAMINATION: CT HEAD WITHOUT CONTRAST CLINICAL INFORMATION: Head trauma COMPARISON: 12/21/2022 and priors dating further back including 04/25/2020 TECHNIQUE: Contiguous axial imaging was performed from the skull base to vertex without intravenous administration of contrast. This CT examination was performed using dose optimization techniques as appropriate, variously including the following: *Automated exposure control *Adjustment of mA and/or kV according to patient size (this includes techniques or standardized protocols for targeted exams where dose is matched to indication/reason for exam; i.e. extremities or head) *Use of iterative reconstruction technique DLP: 572 mGy-cm FINDINGS: The ventricles and sulci are normal in size and configuration. No acute hemorrhage, mass effect or shift is evident. [place]-white differentiation is maintained. In the posterior fossa, the brainstem, cerebellum and fourth ventricle image normally. There is a chronic deformity of the left lamina papyracea, with orbital fat appearing to extend into the left nasal cavity, unchanged since at least most remote available CT of 04/25/2020. Mucosal thickening is noted within the left sphenoid and left and right maxillary sinuses. CT/CT head/brain wo IV con IMPRESSION: 1. No acute intracranial pathology or significant interval change. 2. Chronic deformity of the left lamina papyracea, with orbital fat extending into the left nasal cavity, unchanged since at least most remote available CT of 04/25/2020. 3. Left sphenoid and bilateral maxillary sinus mucosal thickening consistent with chronic sinusitis. Electronically signed by: Roshan Hall MD 01/15/2024 11:54 AM [facility]
--- NOTE | ~2024-01-15 | CT_ITS ---
EXAMINATION: CT CERVICAL SPINE WITHOUT CONTRAST CLINICAL INFORMATION: Neck pain, trauma. COMPARISON: Prior CT of 10/12/2022 TECHNIQUE: Multiple helical unenhanced images were acquired through the cervical spine. Multiplanar computer reformatted images were acquired from the dataset in the sagittal and coronal plane. This CT examination was performed using dose optimization techniques as appropriate, variously including the following: *Automated exposure control *Adjustment of mA and/or kV according to patient size (this includes techniques or standardized protocols for targeted exams where dose is matched to indication/reason for exam; i.e. extremities or head) *Use of iterative reconstruction technique DLP: 296 mGy-cm FINDINGS: CT examination of the cervical spine shows no prevertebral soft tissue swelling. Vertebral body height and alignment are maintained. No acute fracture or subluxation is evident. The odontoid process, cervicothoracic and cervical medullary junctions are normal. There are no bone lesions. There are bilateral stylohyoid ligament calcifications which can be a cause of neck pain or dysphagia. Review of individual intervertebral levels shows degenerative disc disease at C5-6. CT/CT cervical spine wo IV con IMPRESSION: 1. No acute cervical spine fracture or subluxation. Fleischner guidelines were followed. Electronically signed by: Roshan Hall MD 01/15/2024 11:57 AM BARBARA
--- NOTE | ~2024-01-15 | XR_ITS ---
EXAMINATION: XR LUMBOSACRAL SPINE CLINICAL INFORMATION: fall COMPARISON: None available. TECHNIQUE: Three views of the lumbosacral spine. FINDINGS: No acute cortical disruption or malalignment. No lytic or blastic lesions. Superior endplate compression deformity representing 30% volume loss at T12 likely old. Abundant stool and gas in a prominent large intestine obscuring the bony details. XR/XR lumbar spine 2-3V IMPRESSION: No acute fracture or listhesis on plain radiograph. Probable old superior endplate compression deformity at T12. If patient's symptoms persist recommend CT lumbar spine. Electronically signed by: Joaquin Green MD 01/15/2024 11:16 AM BARBARA
--- NOTE | ~2024-01-15 | CT_ITS ---
EXAMINATION: CT ABDOMEN AND PELVIS WITHOUT CONTRAST CLINICAL INFORMATION: Lower abdominal pain COMPARISON: 07/15/2022 TECHNIQUE: Multidetector volumetric imaging was performed of the abdomen and pelvis without contrast. No oral contrast material.. Sagittal and coronal reformatted images were obtained on the technologist's workstation. This CT examination was performed using dose optimization techniques as appropriate, variously including the following: *Automated exposure control *Adjustment of mA and/or kV according to patient size (this includes techniques or standardized protocols for targeted exams where dose is matched to indication/reason for exam; i.e. extremities or head) *Use of iterative reconstruction technique DLP: 389 mGy-cm FINDINGS: LUNG BASES: Linear atelectasis or scar is evident at both lung bases. There is also some scarring and interstitial thickening at the right lung base. LIVER, GALLBLADDER, AND BILIARY TREE: The liver is diffusely low in attenuation. No focal hepatic lesion or biliary ductal dilatation is present. The gallbladder is unremarkable with no evidence of radiopaque gallstones, gallbladder wall thickening, or obvious pericholecystic inflammatory changes. PANCREAS: Unremarkable SPLEEN: Unremarkable ADRENAL GLANDS: Unremarkable KIDNEYS AND URETERS: The left kidney is markedly atretic. The right kidney is unremarkable. BLADDER: Unremarkable GASTROINTESTINAL TRACT: The wall of the cecum is thickened and edematous, measuring up to 8 mm. Fecal material is present throughout the ascending colon. The appendix is unremarkable. The wall of the rectum and focally the wall of the descending colon are also thickened. The small bowel was not dilated. ABDOMINAL WALL: No significant hernia is appreciated. LYMPH NODES: Normal VASCULAR: Unremarkable PELVIC VISCERA: Unremarkable OSSEOUS STRUCTURES: There is mild loss of height of the 2012 superior endplate, approximately 30%, age-indeterminate. CT/CT abdomen pelvis wo IV con IMPRESSION: 1. Discontinuous thickening of the cecum, mid descending colon and rectum, findings suggestive of a colitis. In particular, Crohn's disease could have this appearance. A stercoral colitis is also to be considered given fecal residua distending the cecum and ascending colon. 2. No abscess, obstruction or collection, and no evidence of acute appendicitis. 3. Hepatic steatosis. 4. 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 5. T12 30% superior endplate fracture, age indeterminate. Fleischner guidelines were followed. Electronically signed by: Roshan Hall MD 01/15/2024 02:38 PM EST RP
[2024-01-15 09:38] VITALS: BP 167/83; PULSE 112; RESP 20; TEMP 36.3; O2SAT 97; BMI 24.4
--- NOTE | 2024-01-15 09:48 | ECG_ITS ---
Test Reason : seizure Blood Pressure : / mmHG Vent. Rate : 103 BPM Atrial Rate : 103 BPM P-R Int : 116 ms QRS Dur : 072 ms QT Int : 382 ms P-R-T Axes : 067 -01 047 degrees QTc Int : 500 ms Sinus tachycardia Possible Left atrial enlargement Minimal voltage criteria for LVH, may be normal variant ( R in aVL ) Nonspecific ST and T wave abnormality Abnormal ECG When compared with ECG of 21-DEC-2022 18:36, Questionable change in QRS axis QT has lengthened Referred By: Nargis Harrington Electronically Signed By:JOSE ROBERTO TIJERINA MD
--- NOTE | 2024-01-15 09:50 | PC.NURSE ---
Brought in by family after having a seizure, father reports was on the phone with patient and heard her moaning and when he got to the house she had blood coming out of her mouth. Patient states hx of seizures last seizure x 1 month ago , states has seizure meds but does not take them. Seizure pads placed on bed. Patient reporting 10/10 back pain that she feels was caused when she feel. States was standing when seizure started and she fell to the ground hitting her head and biting her tongue. Tongue with bite powell and scant amount of blood Father Dereck can be reached at [phone]
[2024-01-15] MEDS: LORazepam 2 MG/ML VIAL IVPUSH (10:02)
[2024-01-15 10:09] LABS: MANUAL DIFF FLAG NO
[2024-01-15 10:17] LABS: Basophils Absolute Auto 0.1 X10*3/uL (0.0-0.2); Basophils Percent Auto 0.5 % (0-2); Eosinophils Absolute Auto 0.1 X10*3/uL (0.0-0.4); Eosinophils Percent Auto 1.1 % (0-4); Imm Gran Abs Auto 0.11 X10*3/uL (0.00-0.03); Imm Gran Pct Auto 1.2 % (0.0-0.4); Lymphocytes Absolute Auto 2.7 X10*3/uL (1.2-4.9); Mean Corpuscular HGB Conc 35.1 g/dl (31.0-35.0); Mean Corpuscular Hemoglobin 32.5 pg (27.0-33.0); Mean Corpuscular Volume 92.5 fL (80.0-98.0); Monocytes Absolute Auto 1.1 X10*3/uL (0.1-1.2); Monocytes Percent Auto 11.7 % (2-11); Neutrophils Absolute Auto 5.4 x10*3/uL (2.0-8.3); Neutrophils Percent Auto 57.5 % (45-73); Platelet Count 102 X10*3/uL (160-400); Red Cell Distribution Width 14.9 % (11.0-16.0); White Blood Count 9.5 X10*3/uL (4.8-10.8)
--- NOTE | 2024-01-15 10:23 | ED_ITS ---
HPI - Seizure General Chief Complaint: Seizure Stated Complaint: Seizure Time Seen by Provider: 01/15/24 10:07 Source: patient and old records reviewed Mode of arrival: ambulatory Limitations: other (intoxicated hard to get a history from) History of Present Illness ED Provider: RASHIDA DUMONT Narrative: 43 yo female with opiate use disorder on suboxone, anxiety, seizures but I see no AEDs and she states she does not have EEG or neurologist, HLD, anxiety, ETOH hepatitis she adamantly denies this could be withdrawal seizures but last drink was last night she states she was waking today and fell back hit head and low back pain, bit her tongue. She is a very poor historian and I suspect polypharmacy as well. 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) Description of Episode: loss of consciousness and tonic-clonic movement -: minutes(s) Witnessed: No Trauma: Yes Seizure History: Yes Place: Outdoors Possible Precipitating Event: alcohol withdrawal and medication Associated symptoms: loss of appetite and malaise Treatments prior to arrival: none Related Data Home Medications ?Medication ?Instructions ?Recorded ?Confirmed aripiprazole 2 mg tablet 1 tab PO BEDTIME 09/18/20 06/22/22 gabapentin 300 mg capsule 1 cap PO BID 09/18/20 06/22/22 buprenorphine 8 mg-naloxone 2 mg 1 film buccal DAILY 01/06/22 06/22/22 sublingual film (Suboxone) Previous Rx's ?Medication ?Instructions ?Recorded sofosbuvir 400 mg-velpatasvir 100 1 tab PO DAILY 12 weeks #84 tabs 02/08/22 mg tablet (Epclusa) hydroxyzine HCl 25 mg tablet 25 mg PO BID PRN anxiety #30 tabs 03/22/22 trazodone 50 mg tablet 50 mg PO BEDTIME PRN Insomnia #30 03/22/22 tabs azithromycin 250 mg tablet See Rx Instructions PO .COMPLEX #6 07/15/22 tabs cefpodoxime 200 mg tablet 200 mg PO BID 7 days #14 tabs 07/15/22 ezetimibe 10 mg tablet (Zetia) 10 mg PO DAILY #90 tabs 08/15/22 potassium chloride 20 mEq 20 meq PO DAILY #3 tabs 10/12/22 tablet,extended release cyclobenzaprine 5 mg tablet 5 mg PO TID PRN muscle spasm #10 12/21/22 tabs lidocaine 5 % topical patch 1 patch topical DAILY #15 ea 12/21/22 escitalopram oxalate 20 mg tablet 20 mg PO DAILY #30 tabs 01/24/23 Allergies Allergy/AdvReac Type Severity Reaction Status Date / Time acetaminophen [From TYLENOL] Allergy Severe ANAPHYLAXIS Verified 01/15/24 09:40 Penicillins [PENICILLINS] Allergy Severe HIVES Verified 01/15/24 09:40 Review of Systems 2 Review of Systems: ROS unable to be obtained due to ams, obtundation PMFSH Past Medical History Attestation statement: The following information was validated with the patient. Source: old records reviewed Medical History Low vitamin D level Encounter to establish care Ankle syndesmosis disruption Bimalleolar fracture of left ankle Sinus tachycardia Unilateral agenesis of kidney Hepatic steatosis Melanoma Skin cancer Seizures Surgical History Status post ORIF of fracture of ankle Hx of section Family History Family History Mother Heart attack Father No problems noted. 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 Oriented X3 but very slow to respond. Mild acute distress. Eyes: Pupils equal, round and reactive to light. ENT: Pharynx abrasions and tongue bite on L side of tongue, bleeding controlled, no other head trauma Neck: Normal inspection. Neck supple. CVS: Normal heart rate and rhythm. Pulses normal. Respiratory: No respiratory distress. Breath sounds normal. Back: c/o lower lumbar pain but I see no trauma Abdomen: Soft and nontender. Skin: Skin warm and dry. Normal skin color. Normal skin turgor. Extremities: No lower extremity edema. No calf ttp Neuro: Oriented X 3. No motor deficit. No sensory deficit. very sleepy Medications Administered Generic Name Dose Route Start Last Admin Trade Name Freq PRN Reason Stop Dose Admin Magnesium Sulfate 2 gm in 50 mls @ 25 mls/hr 01/15/24 10:25 01/15/24 10:40 Magnesium Sulfate/H2o IV 01/15/24 12:24 25 mls/hr ONCE ONE Administration Potassium Chloride 10 meq in 100 mls @ 100 mls/hr 01/15/24 10:45 01/15/24 12:03 Potassium Chloride/H20 IV 01/15/24 14:44 100 mls/hr Q1H LEONA Administration Discontinued Medications Generic Name Dose Route Start Last Admin Trade Name Freq PRN Reason Stop Dose Admin Thiamine HCl 200 mg/ Sodium 102 mls @ 204 mls/hr 01/15/24 10:08 01/15/24 10:35 Chloride IV 01/15/24 10:37 204 mls/hr ONCE ONE Administration Lorazepam 2 mg 01/15/24 09:48 01/15/24 10:02 Lorazepam 2 Mg/Ml Vial IVPUSH 01/15/24 09:49 2 mg ONCE ONE Administration Phenobarbital Sodium 182 mg 01/15/24 12:00 01/15/24 12:10 Phenobarbital Sodium 130 Mg/Ml Im Once IM 01/15/24 12:01 182 mg ONCE ONE Administration Potassium Chloride 20 meq 01/15/24 10:40 01/15/24 12:03 Potassium Chloride Er 20 Meq Tab.Er.Prt PO 01/15/24 10:41 20 meq ONCE ONE Administration Medical Decision Making Medical Decision Making MDM Narrative: 43 yo female with opiate use disorder on suboxone, anxiety, seizures but I see no AEDs and she states she does not have EEG or neurologist, HLD, anxiety, ETOH hepatitis here with c/o last drink last nigth then was walking and had a seizure she c/o low back pain, tongue biting at this time given her history I see no notes from Neuro and no EEG I do not see seizure meds on her list right now - I have ordered thiamine, IV magnesium, IV ativan hair labs, drug screen, CT head/cspine and lumbar film. Suspect ETOH withdrawal seizure - phenobarb started. Differential Diagnosis Differential Diagnoses: The differential diagnosis associated with the presentation includes seizure, ETOH withdrawal, polysubstance abuse, head trauma, lyte abnormality Admission/Observation Consideration of admission/observation: Escalation of care including admission/observation considered admit given concern for withdrawal seizure, low K and low Mag Consult Healthcare Provider Management of the patient was discussed with: Hospitalist Lab Data [facility] Lab Attestation statement: I reviewed the patient's lab results. 01/15/24 10:03 01/15/24 10:03 Labs: Lab Results 01/15/24 Range/Units 10:03 WBC 9.5 (4.8-10.8) X10*3/uL RBC 4.00 L (4.20-5.50) X10*6/uL Hgb 13.0 (12.0-16.0) g/dl Hct 37.0 D (37.0-47.0) % MCV 92.5 (80.0-98.0) fL MCH 32.5 (27.0-33.0) pg MCHC 35.1 H (31.0-35.0) g/dl RDW 14.9 (11.0-16.0) % Plt Count 102 L D (160-400) X10*3/uL MPV 10.0 (9.4-12.3) fL Immature Gran % (Auto) 1.2 H (0.0-0.4) % Neut % (Auto) 57.5 (45-73) % Lymph % (Auto) 28.0 (20-40) % [place] % (Auto) 11.7 H (2-11) % Eos % (Auto) 1.1 (0-4) % Baso % (Auto) 0.5 (0-2) % Lymph # (Auto) 2.7 (1.2-4.9) X10*3/uL [place] # (Auto) 1.1 (0.1-1.2) X10*3/uL Eos # (Auto) 0.1 (0.0-0.4) X10*3/uL Baso # (Auto) 0.1 (0.0-0.2) X10*3/uL Abs Immat Gran (auto) 0.11 H (0.00-0.03) X10*3/uL Absolute Neuts (auto) 5.4 (2.0-8.3) x10*3/uL Absolute Nucleated RBC 0.000 (0.0-0.012) X10*3/uL Nucleated RBC % (auto) 0.0 (0.0-0.2) /100WBC Sodium 136 (135-145) mmol/L Potassium 2.9 L* (3.3-5.1) mmol/L Chloride 96 (96-108) mmol/L Carbon Dioxide 26 (22-29) mmol/L Anion Gap 17 (12-20) BUN 10 (9-16) mg/dL Creatinine 0.88 (0.5-1.4) mg/dL Estim Creat Clear Calc 60.9 Estimated GFR > 60 Random Glucose 224 H (60-115) mg/dL Calcium 9.7 D (8.4-10.2) mg/dL Magnesium 1.2 L* (1.6-2.6) mg/dL Total Bilirubin 1.6 H (0.0-1.0) mg/dL Direct Bilirubin 0.6 H (0.0-0.5) mg/dL AST 197 H (5-31) U/L ALT 76 H (0-31) U/L Alkaline Phosphatase 146 H (39-117) U/L Total Creatine Kinase 106 (26-140) U/L Total Protein 7.8 (6.5-8.0) g/dL Albumin 4.4 (3.5-5.0) g/dL Lipase 11 (8-78) U/L Beta HCG, Quant < 2 mIU/mL Ethyl Alcohol < 10 mg/dL Independent Interpretation I performed an independent interpretation of an: EKG, Plain X-Ray (no new fx) and CT Scan (no trauma) Interpretation: Rate: 103 Rhythm: sinus tachycardia Taylor: left Normal P waves. Normal JEMIMA. Normal QRS complex. ST T wave : nonspecific ST T wave changes inf leads, no ZAFAR qTC: 500 prior studies: no acute ischemia The study has been interpreted contemporaneously by me. . Radiology Impression Discussion of test interpretation with radiology: I have reviewed the radiologist's reading. Discharge Plan Discharge Clinical Impression: Seizures, Acute hypokalemia, Hypomagnesemia Patient Disposition: Admitted As Inpatient Print Language: Hungarian
[2024-01-15] MEDS: Thiamine HCL 200 MG in 0.9 % Sodium Chloride 100 ML 204 MG IV (10:35)
[2024-01-15] MEDS: Magnesium Sulfate/H2O 2 GM/50 ML PIGGYBACK IV (10:40)
[2024-01-15 10:41] LABS: Alanine Aminotransferase 76 U/L (0-31); Albumin Level 4.4 g/dL (3.5-5.0); Alkaline Phosphatase 146 U/L (39-117); Anion Gap 17 (12-20); Aspartate Amino Transferase 197 U/L (5-31); Bilirubin Direct 0.6 mg/dL (0.0-0.5); Bilirubin Total 1.6 mg/dL (0.0-1.0); Blood Urea Nitrogen 10 mg/dL (9-16); Calcium 9.7 mg/dL (8.4-10.2); Carbon Dioxide 26 mmol/L (22-29); Chloride 96 mmol/L (96-108); Creatinine Clr Calc Pharmacy 60.9; Estimated Glomerular Filt Rate > 60; Ethanol < 10 mg/dL; Glucose Random 224 mg/dL (60-115); HCG Quantitative < 2 mIU/mL; Lipase 11 U/L (8-78); Magnesium 1.2 mg/dL (1.6-2.6); Potassium 2.9 mmol/L (3.3-5.1); Sodium 136 mmol/L (135-145); Total Protein 7.8 g/dL (6.5-8.0)
[2024-01-15 12:00] VITALS: RESP 16
[2024-01-15] MEDS: Potassium Chloride ER 20 MEQ TAB.ER.PRT PO (12:03)
[2024-01-15] MEDS: Potassium Chloride/H20 10 MEQ/100 ML PIGGYBACK 100 MEQ IV ×4 (12:03→16:56)
[2024-01-15] MEDS: PHENobarbitaL sodium 130 MG/ML IM ONCE 182 MG IM (12:10)
--- NOTE | 2024-01-15 13:42 | PM.IMHP ---
History of Present Illness Date of Service: 01/15/24 Attending physician on admission: Shamar Singer Chief Complaint: seizure Patient is a 43-year-old female with a past medical history significant for substance use disorder, anxiety, ?seizure disorder (no diagnostic evidence of diagnosis, previously seizure med for a short period of time), HLD, anxiety, alcoholic hepatitis and alcohol abuse who presented to the ED today after a reported seizure where she fell backwards, hit her head, but did not lose consciousness. She reports lower abdominal pain, mid to low back pain, no urinary symptoms. Substance use history is difficult to obtain, she gave very unclear answers and reported her last drink was yesterday to the ED provider however told me days ago. She also reports her last seizure was about 3 months ago, she reports she missed her medication. She does report a headache, no nausea or vomiting. She has chronic shortness of breath which has not changed from baseline. She denies any recent drug abuse and reports that she is no longer taking Suboxone. Review of Systems Review of Systems: difficult to obtain, pt somnolent but responsive to physical touch and when engaged in conversation Constitutional: Constitutional: Denies body ache(s), Denies chills, Denies fatigue and Reports headache(s) Eyes: Eyes: Denies blurry vision and Denies change in vision ENT: Reports headache(s), Denies nasal congestion, Denies nasal discharge, Denies nasal obstruction and Denies sore throat Cardiovascular: Cardiovascular: Denies chest pain, Denies rapid heart rate, Denies leg edema and Denies dyspnea Respiratory: Respiratory: Denies chest congestion, Denies cough, Denies dyspnea and Denies wheezing Gastrointestinal: Gastrointestinal: Denies constipation, Denies diarrhea, Denies nausea and Denies vomiting Genitourinary: Genitourinary: Denies dysuria and Denies urinary urgency Musculoskeletal: Musculoskeletal: Reports back pain Integumentary/Breasts: Skin/Breast: Denies rash Neurologic: Reports headache(s), Denies memory loss and Reports seizure-like activity Psychiatric: Psychiatric: Denies memory loss Endocrine: Endocrine: Denies fatigue Allergic/Immunologic: Allergic/Immunologic: Denies wheezing [facility] Medical History Low vitamin D level Encounter to establish care Ankle syndesmosis disruption Bimalleolar fracture of left ankle Sinus tachycardia Unilateral agenesis of kidney Hepatic steatosis Melanoma Skin cancer Seizures Functional capacity: independent ambulation Patient : No Family History Mother Heart attack Father No problems noted. 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 Cognitive needs: No Hearing needs: No Vision needs: No Meds Allergies Allergy/AdvReac Type Severity Reaction Status Date / Time acetaminophen [From TYLENOL] Allergy Severe ANAPHYLAXIS Verified 01/15/24 09:40 Penicillins [PENICILLINS] Allergy Severe HIVES Verified 01/15/24 09:40 Active Medications: Current Medications Calcium Carbonate (Calcium Carbonate 750 Mg Tab.Chew) 750 mg PO Q4H PRN PRN Reason: Heartburn Enoxaparin Sodium (Enoxaparin Sodium 40 Mg/0.4 Ml Syringe) 40 mg SUBCUT Q24H LEONA Famotidine (Famotidine/Pf 20 Mg/2 Ml Vial) 20 mg IVPUSH BID LEONA Folic Acid (Folic Acid 1 Mg Tablet) 1 mg PO DAILY [facility] Stop: 01/19/24 08:59 Potassium Chloride (Potassium Chloride/H20) 10 meq in 100 mls @ 100 mls/hr IV Q1H LEONA Stop: 01/15/24 14:44 Last Admin: 01/15/24 13:37 Dose: 100 mls/hr Ketorolac Tromethamine (Ketorolac Tromethamine 30 Mg/Ml Vial) 30 mg IVPUSH Q6H PRN PRN Reason: Pain, Moderate(Pain Scale 4-6) Stop: 01/20/24 13:32 Magnesium Hydroxide (Milk Of Magnesia 30 Ml Oral.Susp) 30 ml PO DAILY PRN PRN Reason: Constipation Melatonin (Melatonin 3 Mg Tablet) 6 mg PO BEDTIME PRN PRN Reason: Insomnia Multivitamins/Vitamin C (Multivitamin Tablet) 1 tab PO DAILY [facility] Stop: 01/19/24 08:59 Nicotine (Nicotine 7 Mg Patch.Td24) 7 mg TRANSDERMA DAILY [facility] Oxycodone HCl (Oxycodone Hcl Immed Release 5 Mg Tablet) 5 mg PO Q6H PRN PRN Reason: Pain, Severe (Pain Scale 7-10) Pharmacy Consult (Consult Rx Etoh Phenob Im/Po) 1 each MISCELLANE ONCE PRN; Protocol PRN Reason: Consult order Phenobarbital (Phenobarbital 30 Mg Tablet) 30 mg PO BID [facility] Stop: 01/17/24 21:01 Phenobarbital (Phenobarbital 15 Mg Tablet) 15 mg PO BID [facility] Stop: 01/19/24 21:01 Phenobarbital (Phenobarbital 15 Mg Tablet) 15 mg PO DAILY [facility] Stop: 01/21/24 09:01 Phenobarbital Sodium (Phenobarbital Sodium 130 Mg/Ml Vial Im Q3hx2) 137 mg IM Q3H [facility] Stop: 01/15/24 18:01 Sodium Chloride (0.9 % Sodium Chloride Flush 3 Ml Syringe) 3 ml IVFLUSH QSHIFT [facility] Thiamine HCl (Thiamine Hcl 100 Mg Tablet) 100 mg PO DAILY [facility] Stop: 01/19/24 08:59 Home Medications ?Medication ?Instructions ?Recorded ?Confirmed ?Last Taken ?Type aripiprazole 2 mg tablet 1 tab PO BEDTIME 09/18/20 06/22/22 Unknown History gabapentin 300 mg capsule 1 cap PO BID 09/18/20 06/22/22 Unknown History buprenorphine 8 mg-naloxone 2 mg 1 film buccal DAILY 01/06/22 06/22/22 Unknown History sublingual film (Suboxone) Physical Exam Vital Signs and Narrative: Vital Signs: Last Vital Signs Temp 97.4 F 01/15/24 09:38 Pulse 112 H 01/15/24 09:38 Resp 16 01/15/24 12:00 BP 167/83 H 01/15/24 09:38 Pulse Ox 97 01/15/24 09:38 O2 Del Method Room Air 01/15/24 09:38 BMI result Body Mass Index 24.4 General: AOx3, no acute distress, somnolent Resp: CTA bilaterally CVS: S1, S2, RRR GI: +BS, tender lower abd, no distension Skin: Warm, dry, no bruising on back Neuro: Cranial nerves II-XII grossly intact bilaterally. Motor grossly intact bilaterally Extremities: No edema Psych: flat affect Results Labs 01/15/24 10:03 01/15/24 10:03 Labs: Laboratory Results - last 24 hr 01/15/24 10:03 MCV 92.5 MCH 32.5 MCHC 35.1 H RDW 14.9 Plt Count 102 L D MPV 10.0 Immature Gran % (Auto) 1.2 H Neut % (Auto) 57.5 Lymph % (Auto) 28.0 [place] % (Auto) 11.7 H Eos % (Auto) 1.1 Baso % (Auto) 0.5 Lymph # (Auto) 2.7 [place] # (Auto) 1.1 Eos # (Auto) 0.1 Baso # (Auto) 0.1 Abs Immat Gran (auto) 0.11 H Absolute Neuts (auto) 5.4 Absolute Nucleated RBC 0.000 Nucleated RBC % (auto) 0.0 Anion Gap 17 Estim Creat Clear Calc 60.9 Estimated GFR > 60 Random Glucose 224 H Calcium 9.7 D Magnesium 1.2 L* Total Bilirubin 1.6 H Direct Bilirubin 0.6 H AST 197 H ALT 76 H Alkaline Phosphatase 146 H Total Creatine Kinase 106 Total Protein 7.8 Albumin 4.4 Lipase 11 Beta HCG, Quant < 2 Ethyl Alcohol < 10 Imaging Radiologist's Impressions: Impressions Head CT 01/15/24 10:19 IMPRESSION: 1. No acute intracranial pathology or significant interval change. 2. Chronic deformity of the left lamina papyracea, with orbital fat extending into the left nasal cavity, unchanged since at least most remote available CT of 04/25/2020. 3. Left sphenoid and bilateral maxillary sinus mucosal thickening consistent with chronic sinusitis. Electronically signed by: Roshan Hall MD 01/15/2024 11:54 AM EST RP Lumbar Spine X-Ray 01/15/24 10:19 IMPRESSION: No acute fracture or listhesis on plain radiograph. Probable old superior endplate compression deformity at T12. If patient's symptoms persist recommend CT lumbar spine. Electronically signed by: Joaquin Green MD 01/15/2024 11:16 AM EST RP Cervical Spine CT 01/15/24 11:06 IMPRESSION: 1. No acute cervical spine fracture or subluxation. Fleischner guidelines were followed. Electronically signed by: oRshan Hall MD 01/15/2024 11:57 AM EST RP Assessment and Plan (1) Seizure: Status: Acute (2) History of ETOH abuse: Status: Acute (3) History of opioid abuse: Status: Acute (4) Hypokalemia: Status: Acute (5) Hypomagnesemia: Status: Acute (6) Tobacco abuse: Status: Acute Plan Patient is a 43-year-old female with a past medical history significant for substance use disorder, anxiety, ?seizure disorder (no diagnostic evidence of diagnosis, previously seizure med for a short period of time, negative w/u at [facility] 2019), HLD, anxiety, alcoholic hepatitis and alcohol abuse who presented to the ED today after a reported seizure where she fell backwards, hit her head, but did not lose consciousness. Started on phenobarb protocol in ED due to history of etoh abuse and pt is a poor historian. No seizure-like activity since arriving to ED, was given ativan, IV thiamine, potassium and mag. seizure - neuro w/u at [facility] with multiple EEGs negative in 2019, sydnie wtoh withdrawal - EKG with sinus tach - head/neck CT negative, lumbar spine x-ray old compression deformity T12 - neuro consult - seizure precautions - continue phenobarb protocol - given IV thiamine, PO tomorrow, add multivitamin and folate - IV famotidine BID - admit to tele Hypokalemia/hypomagnesemia - given 40 mEq IV potassium and 20 mEq PO in ED - given 2g mag in ED - recheck BMP and magnesium later today - monitor BMP and magnesium hx etoh abuse - pt history difficult to obtain - addiction med consult - admission for ?etoh withdrawal hx VICENTE - urine tox not yet done - addiction med consult as above abd pain - UA/cx - Hcg negative - A/P with without contrast Tobacco use disorder - nicotine patch full code VTE prophy: lovenox Patient recent seizure likely secondary to alcohol withdrawal however patient reports history of seizures, complicated by hypokalemia and hypomagnesemia, requiring admission for at least 2 midnights stay for monitoring and possible alcohol withdrawal. Quality Stroke Does the patient have a stroke diagnosis?: No VTE Prior VTE?: No VTE Risk Level:: Medical - moderate - high VTE Device Contraindication: Treatment Not Indicated VTE Drug Contraindication: N/A - Med Ordered
[2024-01-15] MEDS: Nicotine 7 MG PATCH.TD24 TRANSDERMA (14:27)
[2024-01-15] MEDS: PHENobarbitaL sodium 130 MG/ML VIAL IM Q3Hx2 137 MG IM ×2 (14:32→19:57)
--- NOTE | 2024-01-15 14:49 | PHA.MEDREC ---
Addendum entered by Chantell Miranda RPh 01/15/24 15:01: Reviewed by [facility] Original Note: Pharmacy Consult ? Medication Reconciliation Pharmacy has completed the medication reconciliation. Pharmacy has completed the medication reconciliation. Spoke to patient to confirm med list. Patient states she is not on any Medications. Patient states she has stopped taking all her medication for over 3 weeks ago.
[2024-01-15 17:02] VITALS: BP 148/99; PULSE 102; RESP 14; TEMP 36.7; O2SAT 97
[2024-01-15 18:24] LABS: Appearance Urine Cloudy; Color Urine Yellow; Glucose Urine UA Negative (Negative); Leukocyte Esterase Urine Trace (Negative); Nitrite Urine Negative (Negative); Specific Gravity - Urine 1.015 (1.005-1.025); UMIC TRIGGER UACC YES; Urine Blood Negative (Negative); Urine Ketones Negative (Negative); Urine Protein 30 (1+) mg/dL (Neg-Trace)
[2024-01-15 18:26] LABS: Bacteria Urine 4+ (None Seen); Hyaline Casts Urine 0-2 /LPF (0-2); RBC Urine 0-2 /HPF (0-2); WBC Urine 0-5 /HPF (0-5)
[2024-01-15 18:40] LABS: Amphetamine Screen Urine Not Detected (Not Detect); Barbiturates, Urine POSITIVE (Not Detect); Benzodiazepines Screen Urine POSITIVE (Not Detect); Buprenorphine Scr Positive (Not Detect); Cannabinoid Screen Urine POSITIVE (Not Detect); Cocaine Screen Urine Not Detected (Not Detect); Fentanyl, urine Not Detected (Not Detect); Methadone Screen, Urine Not Detected (Not Detect); Opiate Screen Urine Not Detected (Not Detect); Oxycodone Screen Urine Not Detected (Not Detect); Phencyclidine Screen Urine Not Detected (Not Detect)
[2024-01-15 18:44] LABS: Anion Gap 10 (12-20); Blood Urea Nitrogen 10 mg/dL (9-16); Carbon Dioxide 28 mmol/L (22-29); Chloride 101 mmol/L (96-108); Creatinine Clr Calc Pharmacy 71.5; Estimated Glomerular Filt Rate > 60; Glucose Random 120 mg/dL (60-115); Magnesium 1.8 mg/dL (1.6-2.6); Potassium 3.5 mmol/L (3.3-5.1); Sodium 135 mmol/L (135-145)
[2024-01-15 19:13] VITALS: BP 147/107; PULSE 102; RESP 18; TEMP 36.1; O2SAT 99
[2024-01-15] MEDS: Morphine Sulfate 2 MG/ML CARTRIDGE IVPUSH (19:56)
[2024-01-15] MEDS: Famotidine/PF 20 MG/2 ML VIAL IVPUSH (19:57)
[2024-01-15 23:13] VITALS: BP 166/111; PULSE 110; RESP 28; TEMP 37.1; O2SAT 96
--- NOTE | 2024-01-16 | EEG_ITS ---
This is a 16-channel EEG with an EKG lead. The patient is reported awake during the tracing. Background EEG rhythm is 16 to 20 hertz, 5 to 20 microvolt posteriorly, and low amplitude fast anteriorly. Photic stimulation does not produce any significant abnormality. Hyperventilation is not performed. Cardiac lead does not reveal any significant abnormality. No sharp wave spikes or paroxysmal tendency noted. IMPRESSION: Unremarkable EEG. MD LISETTE Sher/GRIS / [id number]
[2024-01-16] MEDS: 0.9 % Sodium Chloride Flush 3 ML SYRINGE IVFLUSH ×4 (02:24→22:01)
[2024-01-16] MEDS: hydrOXYzine HCL 25 MG TABLET PO (02:55)
[2024-01-16 02:56] VITALS: BP 153/110; PULSE 104; RESP 16; TEMP 37.3; O2SAT 98
--- NOTE | 2024-01-16 03:02 | MHC.EDTECH ---
This tech took over care of patient at 0245AM,rounded and introduced self to patient,vitals taken,BP is elevated ,patient told this automobile service writer she was having some back pain,RN made aware,call lamar in reach
--- NOTE | 2024-01-16 05:17 | PC.NURSE ---
MD Meek aware of pts BP
[2024-01-16 05:18] LABS: Basophils Percent Auto 0.5 % (0-2); Imm Gran Abs Auto 0.02 X10*3/uL (0.00-0.03); Imm Gran Pct Auto 0.2 % (0.0-0.4); Mean Corpuscular Hemoglobin 32.3 pg (27.0-33.0); PLT CLUMP 1; Red Blood Count 3.71 X10*6/uL (4.20-5.50); Red Cell Distribution Width 15.3 % (11.0-16.0); SCAN SMEAR FLAG 1
[2024-01-16 05:20] LABS: Eosinophils Absolute Auto 0.1 X10*3/uL (0.0-0.4); Eosinophils Percent Auto 1.4 % (0-4); Hematocrit 34.7 % (37.0-47.0); Lymphocytes Absolute Auto 1.9 X10*3/uL (1.2-4.9); Lymphocytes Percent Auto 22.2 % (20-40); Mean Corpuscular HGB Conc 34.6 g/dl (31.0-35.0); Mean Corpuscular Volume 93.5 fL (80.0-98.0); Mean Platelet Volume 10.1 fL (9.4-12.3); Monocytes Absolute Auto 1.4 X10*3/uL (0.1-1.2); Monocytes Percent Auto 15.8 % (2-11); Neutrophils Absolute Auto 5.1 x10*3/uL (2.0-8.3); Neutrophils Percent Auto 59.9 % (45-73)
[2024-01-16 05:34] LABS: Alanine Aminotransferase 53 U/L (0-31); Albumin Level 3.8 g/dL (3.5-5.0); Alkaline Phosphatase 114 U/L (39-117); Anion Gap 16 (12-20); Aspartate Amino Transferase 123 U/L (5-31); Bilirubin Total 1.3 mg/dL (0.0-1.0); Blood Urea Nitrogen 7 mg/dL (9-16); Calcium 9.7 mg/dL (8.4-10.2); Carbon Dioxide 23 mmol/L (22-29); Chloride 101 mmol/L (96-108); Creatinine Clr Calc Pharmacy 80.1; Estimated Glomerular Filt Rate > 60; Glucose Random 88 mg/dL (60-115); Magnesium 1.7 mg/dL (1.6-2.6); Potassium 3.4 mmol/L (3.3-5.1); Sodium 137 mmol/L (135-145); Total Protein 6.9 g/dL (6.5-8.0)
[2024-01-16 05:36] LABS: MANUAL DIFF FLAG SCAN; Platelet Count 63 X10*3/uL (160-400); White Blood Count 8.6 X10*3/uL (4.8-10.8)
[2024-01-16 05:37] LABS: SLIDE REVIEW VERIFIED
[2024-01-16 05:52] VITALS: BP 154/106; PULSE 103; RESP 18; TEMP 36.9; O2SAT 97
--- NOTE | 2024-01-16 06:08 | MHC.EDTECH ---
Rounds and vitals completed,BP is elevated RN aware,patient was incont. of urine,patient got up and ambulated to the bathroom with a steady gait,wipes and new linen given,call lamar in reach
[2024-01-16 08:24] VITALS: BP 156/98; PULSE 92; RESP 16; O2SAT 100
[2024-01-16] MEDS: Famotidine/PF 20 MG/2 ML VIAL IVPUSH (10:09)
[2024-01-16] MEDS: Folic Acid 1 MG TABLET PO (10:09)
[2024-01-16] MEDS: Multivitamin TABLET 1 TAB PO (10:10)
[2024-01-16] MEDS: Thiamine HCL 100 MG TABLET PO (10:10)
[2024-01-16] MEDS: Nicotine 7 MG PATCH.TD24 TRANSDERMA (10:10)
[2024-01-16] MEDS: PHENobarbitaL 30 MG TABLET PO ×2 (10:11→21:59)
--- NOTE | 2024-01-16 10:27 | MHC.RECOVRN ---
Met with pt in ED3 after receiving Addiction Medicine consult. Pt presented to the ED yesterday following a seizure. Pt now medically admitted for ? alcohol withdrawal seizure and receiving phenobarbital. Pt laying in bed, awake, alert, easily engages in conversation. Pt reports she is currently prescribed Suboxone, 12 mg daily, x a couple years through [facility] in [place]. Pt reports she had been using Percocet prior to Suboxone, has not used also in a couple years. Pt reports she takes a sliver of Suboxone when she needs it. Per pt, she feels she needs it when she is stressed. Denies feeling opioid withdrawal symptoms when she does not take it. Reports that when she does take it is no more than 5 mg. Pt does not want to take it while in the hospital and receiving pain medication, she feels that she does not need it. In regard to alcohol use, pt reports she drinks 2-3 nips of vodka on Fridays and Saturdays. Pt reports earlier this year she had been drinking daily and went to [facility] 8 months ago for ATS. Pt reports she has a new apartment, moved in about 2 months ago, and this has been helping with her recovery. Pt reports 2 ATS admissions, 1 [facility] admission, and one admission to [facility] in [place]. Denies hx alcohol withdrawal seizures. Reports hx of recovery manager and IOP. Pt would like to meet with recovery manager while in the hospital. Pt reports she has support in the community, including sons, dad, brother, cousin. Pt provided with written recovery resources as well as t/w contact information if needed. Denies questions or concerns at this time. Discussed with Joaquina Davis APRN.
--- NOTE | 2024-01-16 11:27 | MHC.CM.PN ---
IMM 01/16/24, Pt. lives alone, is independent, no home health services or DME. HCP discussed, pt. declined to complete one at this time. PCP confirmed: Nory Givens. Pt. is able to arrange transport home at [place]. Pt. requests assistance with renewing her [facility], financial services referral placed. DCP: home, self care, CM to follow for DC needs.
--- NOTE | 2024-01-16 12:19 | HO.PM.IMPN ---
Subjective Subjective Date of Service: 01/16/24 Interval History: Complaining of mid back pain that started after shaking, no recurrent episode of seizure since hospitalization denies abdominal pain, no nausea, no vomiting, denies headache, no lightheadedness, no dizziness. Review of Systems All other system reviewed and are negative Physical Exam Vital Signs: Vital Signs: Last Vital Signs Temp 98.4 F 01/16/24 05:52 Pulse 92 01/16/24 08:24 Resp 16 01/16/24 08:24 BP 156/98 H 01/16/24 08:24 Pulse Ox 100 01/16/24 08:24 O2 Del Method Room Air 01/16/24 08:24 BMI result Body Mass Index 24.4 Const: Other: General resting comfortably in no acute distress. Anicteric sclera moist mucous membranes Neck no JVD. CVS regular rate rhythm, Respiratory lungs clear to auscultation, no respiratory distress, no wheeze, no rhonchi. Gastrointestinal abdomen soft, non tender, bowel sounds audible, no guarding , no rigidity. Extremities no edema. Neuro non focal , no tremors Skin no rash Appropriate affect Objective Data Active Medications Calcium Carbonate (Calcium Carbonate 750 Mg Tab.Chew) 750 mg PO Q4H PRN PRN Reason: Heartburn Famotidine (Famotidine/Pf 20 Mg/2 Ml Vial) 20 mg IVPUSH BID [facility] Last Admin: 01/16/24 10:09 Dose: 20 mg Documented By: GRAHAM Folic Acid (Folic Acid 1 Mg Tablet) 1 mg PO DAILY [facility] Stop: 01/19/24 08:59 Last Admin: 01/16/24 10:09 Dose: 1 mg Documented By: GRAHAM Hydroxyzine HCl (Hydroxyzine Hcl 25 Mg Tablet) 25 mg PO BID PRN PRN Reason: anxiety Last Admin: 01/16/24 02:55 Dose: 25 mg Documented By: N-MURPE Magnesium Hydroxide (Milk Of Magnesia 30 Ml Oral.Susp) 30 ml PO DAILY PRN PRN Reason: Constipation Melatonin (Melatonin 3 Mg Tablet) 6 mg PO BEDTIME PRN PRN Reason: Insomnia Morphine Sulfate (Morphine Sulfate 2 Mg/Ml Cartridge) 2 mg IVPUSH Q4H PRN; Protocol PRN Reason: Pain, Severe (Pain Scale 7-10) Last Admin: 01/15/24 19:56 Dose: 2 mg Documented By: KRISTINE Multivitamins/Vitamin C (Multivitamin Tablet) 1 tab PO DAILY [facility] Stop: 01/19/24 08:59 Last Admin: 01/16/24 10:10 Dose: 1 tab Documented By: GRAHAM Nicotine (Nicotine 7 Mg Patch.Td24) 7 mg TRANSDERMA DAILY [facility] Last Admin: 01/16/24 10:10 Dose: 7 mg Documented By: GRAHAM Oxycodone HCl (Oxycodone Hcl Immed Release 5 Mg Tablet) 5 mg PO Q6H PRN PRN Reason: Pain, Moderate(Pain Scale 4-6) Pharmacy Consult (Consult Rx Etoh Phenob Im/Po) 1 each MISCELLANE ONCE PRN; Protocol PRN Reason: Consult order Phenobarbital (Phenobarbital 30 Mg Tablet) 30 mg PO BID [facility] Stop: 01/17/24 21:01 Last Admin: 01/16/24 10:11 Dose: 30 mg Documented By: GRAHAM Phenobarbital (Phenobarbital 15 Mg Tablet) 15 mg PO BID [facility] Stop: 01/19/24 21:01 Phenobarbital (Phenobarbital 15 Mg Tablet) 15 mg PO DAILY [facility] Stop: 01/21/24 09:01 Sodium Chloride (0.9 % Sodium Chloride Flush 3 Ml Syringe) 3 ml IVFLUSH QSHIFT [facility] Last Admin: 01/16/24 10:09 Dose: 3 ml Documented By: GRAHAM Thiamine HCl (Thiamine Hcl 100 Mg Tablet) 100 mg PO DAILY [facility] Stop: 01/19/24 08:59 Last Admin: 01/16/24 10:10 Dose: 100 mg Documented By: GRAHAM Labs 01/16/24 05:14 01/16/24 05:14 Labs: Laboratory Results - last 24 hr 01/15/24 01/15/24 01/16/24 18:14 18:22 05:14 MCV 93.5 MCH 32.3 MCHC 34.6 RDW 15.3 Plt Count 63 L D MPV 10.1 Immature Gran % (Auto) 0.2 Neut % (Auto) 59.9 Lymph % (Auto) 22.2 [place] % (Auto) 15.8 H Eos % (Auto) 1.4 Baso % (Auto) 0.5 Lymph # (Auto) 1.9 [place] # (Auto) 1.4 H Eos # (Auto) 0.1 Baso # (Auto) 0.0 Abs Immat Gran (auto) 0.02 Absolute Neuts (auto) 5.1 Absolute Nucleated RBC 0.000 Nucleated RBC % (auto) 0.0 Smear Tech's Comments VERIFIED Anion Gap 10 L 16 Estim Creat Clear Calc 71.5 80.1 Estimated GFR > 60 > 60 Random Glucose 120 H 88 Calcium 9.0 D 9.7 D Magnesium 1.8 1.7 Total Bilirubin 1.3 H AST 123 H ALT 53 H Alkaline Phosphatase 114 Total Protein 6.9 Albumin 3.8 Urine Color Yellow Urine Appearance Cloudy Urine pH 7.0 Ur Specific [place] 1.015 Urine Protein 30 (1+) H Urine Glucose (UA) Negative Urine Ketones Negative Urine Blood Negative Urine Nitrite Negative Ur Leukocyte Esterase Trace H Urine RBC 0-2 Urine WBC 0-5 Ur Squamous Epith Cells 6-10 Urine Bacteria 4+ Hyaline Casts 0-2 Urine Opiates Screen Not Detected Ur Buprenorphine Scrn Positive H Ur Oxycodone Screen Not Detected Urine Methadone Screen Not Detected Urine Fentanyl Screen Not Detected Ur Barbiturates Screen POSITIVE H Ur Phencyclidine Scrn Not Detected Ur Amphetamines Screen Not Detected U Benzodiazepines Scrn POSITIVE H Urine Cocaine Screen Not Detected U Marijuana (THC) Screen POSITIVE H Assessment and Plan (1) Tobacco abuse: Status: Acute (2) Hypokalemia: Status: Acute (3) History of ETOH abuse: Status: Acute (4) Seizure: Status: Acute (5) Hypomagnesemia: Status: Acute Plan 43-year-old female with a past medical history significant for substance use disorder, anxiety, ?seizure disorder (no diagnostic evidence of diagnosis, previously seizure med for a short period of time, negative w/u at [facility] 2019), HLD, anxiety, alcoholic hepatitis and alcohol abuse who presented to the ED today after a reported seizure where she fell backwards, hit her head, but did not lose consciousness. Started on phenobarb protocol in ED due to history of etoh abuse and pt is a poor historian. No seizure-like activity since arriving to ED, was given ativan, IV thiamine, potassium and mag. seizure - neuro w/u at [facility] with multiple EEGs negative in 2019, sydnie due to etoh withdrawal - head/neck CT negative, lumbar spine x-ray old compression deformity T12 - seizure precautions On phenobarb for alcohol withdrawal, will cover for seizure Since patient denies heavy alcohol intake and no withdrawal symptoms will obtain EEG Neuro consult Hypokalemia/hypomagnesemia - repleted and normalized - monitor BMP and magnesium hx etoh abuse - -admits to drinking 2-3 nips of vodka on Fridays and Saturdays, informed other provider that she drinks 1-2 wine cooler couple times a week last drink 3 days ago -seen by Addiction Team outpatient resources provided -continue phenobarb protocol, folic acid and thiamine hx VICENTE - urine tox positive for benzos, barbiturates, marijuana and bupropion - seen by Addiction Team, written recovery resources provided, patient does not want to continue Suboxone while in hospital. abd pain - resolved ,CT abdomen and pelvis showed left renal atrophy, known to patient, thickening of multiple different areas of bowel , concerning for Crohn's disease, ? stercoral colitis due to fecal residual distending of cecum and ascending colon - Hcg negative - DC IV Pepcid. -follow GI consult Back pain likely due to seizure Salon PAS/as needed oxycodone and Tylenol will DC IV morphine Tobacco use disorder - counseling done, continue nicotine patch 7 mg full code VTE prophy: lovenox Requires continued inpatient hospitalization for treatment and evaluation of seizure alcohol withdrawal and electrolyte abnormality and expert consultation . Quality Stroke Does the patient have a stroke diagnosis?: No VTE Prior VTE?: No VTE Risk Level:: Medical - moderate - high VTE Device Contraindication: Treatment Not Indicated VTE Drug Contraindication: N/A - Med Ordered
[2024-01-16 12:21] VITALS: BP 146/99; PULSE 95; RESP 18; O2SAT 99
[2024-01-16] MEDS: Morphine Sulfate 2 MG/ML CARTRIDGE IVPUSH (13:24)
--- NOTE | 2024-01-16 15:33 | PC.NURSE ---
Patient at EEG. Will medicate after patient gets back in room.
[2024-01-16 16:20] VITALS: BP 150/107; PULSE 107; RESP 16; O2SAT 98
--- NOTE | 2024-01-16 17:33 | P.CNNE_ITS ---
History of Present Illness Data of Consult Service Date: 01/16/24 Primary Care Provider: KEN De Los Santos This is a 43-year-old female with a h/o substance use disorder, anxiety, ?seizure disorder (no diagnostic evidence of diagnosis, previously seizure med for a short period of time), HLD, anxiety, alcoholic hepatitis and alcohol abuse who presented to the ED today after a reported seizure where she fell backwards, hit her head, but did not lose consciousness. She reports lower abdominal pain, mid to low back pain, no urinary symptoms. Substance use history is difficult to obtain, she gave very unclear answers and reported her last drink was yesterday to the ED provider however told me days ago. She also reports her last seizure was about 3 months ago, she reports she missed her medication. She does report a headache, no nausea or vomiting. She has chronic shortness of breath which has not changed from baseline. She denies any recent drug abuse and reports that she is no longer taking Suboxone. Ct shows no acute findings PMFSH Past Medical History Medical History Low vitamin D level Encounter to establish care Ankle syndesmosis disruption Bimalleolar fracture of left ankle Sinus tachycardia Unilateral agenesis of kidney Hepatic steatosis Melanoma Skin cancer Seizures Family History Family History Mother Heart attack Father No problems noted. Surgical History Surgical History Status post ORIF of fracture of ankle Hx of section Social History Social History Alcohol intake: current Alcohol intake frequency: a few times a month Patient Tobacco Use Status: Current everyday Tobacco user Cigarette Packs Per Day: 10 Cigarettes Per Day: 8 Years Smoked: 15 Smoked in Last 30 Days: No Use of substances other than those prescribed or required for medical reasons: Yes Substance Use Type: Marijuana Substance Use Frequency: Chronic Longstanding Advance Directives: No Advance Directives Information Provided: Yes Do you have a plan to hurt others: No Plan Nutrition Risks: No Nutritional Risk Patient : No service: No Current occupational status: disabled 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 Cognitive needs: No Hearing needs: No Vision needs: No Meds Allergies Allergy/AdvReac Type Severity Reaction Status Date / Time acetaminophen [From TYLENOL] Allergy Severe ANAPHYLAXIS Verified 01/15/24 09:40 Penicillins [PENICILLINS] Allergy Severe HIVES Verified 01/15/24 09:40 Active Medications: Current Medications Calcium Carbonate (Calcium Carbonate 750 Mg Tab.Chew) 750 mg PO Q4H PRN PRN Reason: Heartburn Folic Acid (Folic Acid 1 Mg Tablet) 1 mg PO DAILY [facility] Stop: 01/19/24 08:59 Last Admin: 01/16/24 10:09 Dose: 1 mg Hydroxyzine HCl (Hydroxyzine Hcl 25 Mg Tablet) 25 mg PO BID PRN PRN Reason: anxiety Last Admin: 01/16/24 02:55 Dose: 25 mg Lidocaine (Lidocaine 4 % Patch Adh..Patch) 1 patch TRANSDERMA DAILY [facility]; Protocol Magnesium Hydroxide (Milk Of Magnesia 30 Ml Oral.Susp) 30 ml PO DAILY PRN PRN Reason: Constipation Melatonin (Melatonin 3 Mg Tablet) 6 mg PO BEDTIME PRN PRN Reason: Insomnia Multivitamins/Vitamin C (Multivitamin Tablet) 1 tab PO DAILY [facility] Stop: 01/19/24 08:59 Last Admin: 01/16/24 10:10 Dose: 1 tab Nicotine (Nicotine 7 Mg Patch.Td24) 7 mg TRANSDERMA DAILY [facility] Last Admin: 01/16/24 10:10 Dose: 7 mg Omeprazole (Omeprazole 20 Mg Capsule.Dr) 20 mg PO DAILY@0630 [facility] Oxycodone HCl (Oxycodone Hcl Immed Release 5 Mg Tablet) 5 mg PO Q6H PRN PRN Reason: Pain, Moderate(Pain Scale 4-6) Pharmacy Consult (Consult Rx Etoh Phenob Im/Po) 1 each MISCELLANE ONCE PRN; Protocol PRN Reason: Consult order Phenobarbital (Phenobarbital 30 Mg Tablet) 30 mg PO BID [facility] Stop: 01/17/24 21:01 Last Admin: 01/16/24 10:11 Dose: 30 mg Phenobarbital (Phenobarbital 15 Mg Tablet) 15 mg PO BID [facility] Stop: 01/19/24 21:01 Phenobarbital (Phenobarbital 15 Mg Tablet) 15 mg PO DAILY [facility] Stop: 01/21/24 09:01 Polyethylene Glycol (Polyethylene Glycol 3350 17 Gm Powd.Pack) 17 gm PO DAILY [facility] Sodium Chloride (0.9 % Sodium Chloride Flush 3 Ml Syringe) 3 ml IVFLUSH QSHIFT [facility] Last Admin: 01/16/24 10:09 Dose: 3 ml Thiamine HCl (Thiamine Hcl 100 Mg Tablet) 100 mg PO DAILY [facility] Stop: 01/19/24 08:59 Last Admin: 01/16/24 10:10 Dose: 100 mg Home Medications ?Medication ?Instructions ?Recorded ?Confirmed ?Last Taken ?Type buprenorphine 8 mg-naloxone 2 mg 1 film sublingual DAILY 01/15/24 01/15/24 Unknown History sublingual film Physical Exam 2 Vital Signs: Vital Signs: Last Vital Signs Temp 98.4 F 01/16/24 05:52 Pulse 107 H 01/16/24 16:20 Resp 16 01/16/24 16:20 BP 150/107 H 01/16/24 16:20 Pulse Ox 98 01/16/24 16:20 O2 Del Method Room Air 01/16/24 16:20 BMI result Body Mass Index 24.4 Neuro: Other: Non focal Results Labs 01/16/24 05:14 01/16/24 05:14 Labs: Short CBC 01/16/24 Range/Units 05:14 WBC 8.6 (4.8-10.8) X10*3/uL Hgb 12.0 (12.0-16.0) g/dl Hct 34.7 L (37.0-47.0) % Plt Count 63 L D (160-400) X10*3/uL BMP 01/15/24 01/16/24 18:22 05:14 Sodium 135 137 Potassium 3.5 D 3.4 Chloride 101 101 Carbon Dioxide 28 23 BUN 10 7 L Creatinine 0.75 0.67 Calcium 9.0 D 9.7 D Liver Function 01/16/24 Range/Units 05:14 Total Bilirubin 1.3 H (0.0-1.0) mg/dL AST 123 H (5-31) U/L ALT 53 H (0-31) U/L Alkaline Phosphatase 114 (39-117) U/L Albumin 3.8 (3.5-5.0) g/dL Urine 01/15/24 Range/Units 18:14 Urine Color Yellow Urine Appearance Cloudy Urine pH 7.0 (5.0-9.0) Ur Specific [place] 1.015 (1.005-1.025) Urine Protein 30 (1+) H (Neg-Trace) mg/dL Urine Glucose (UA) Negative (Negative) mg/dL Assessment and Plan (1) Seizure: Status: Acute Unclear history the possibility of this being a seizure. Would recommend an outpatient 48 hour EEG. Would not start seizure medicine at this time. (2) History of ETOH abuse: Status: Acute Procedures Date of Service Date of Service: 01/16/24
[2024-01-16] MEDS: polyethylene glycoL 3350 17 GM POWD.PACK PO (17:34)
[2024-01-16] MEDS: oxyCODONE HCl Immed Release 5 MG TABLET PO (17:34)
[2024-01-16] MEDS: Lidocaine 4 % Patch ADH..PATCH 1 PATCH TRANSDERMA (17:35)
--- NOTE | 2024-01-16 17:58 | PM.NEUROCN ---
History of Present Illness Data of Consult Service Date: 01/16/24 Primary Care Provider: KEN De Los Santos HPI Reason for consult: seizure Additional info obtained. After review it appears that she did hav ea gneralized convulsion an dbit her tongue an dwas incontinent of urine and hit her head. [facility] Past Medical History Medical History Low vitamin D level Encounter to establish care Ankle syndesmosis disruption Bimalleolar fracture of left ankle Sinus tachycardia Unilateral agenesis of kidney Hepatic steatosis Melanoma Skin cancer Seizures Family History Family History Mother Heart attack Father No problems noted. Surgical History Surgical History Status post ORIF of fracture of ankle Hx of section Social History Social History Alcohol intake: current Alcohol intake frequency: a few times a month Patient Tobacco Use Status: Current everyday Tobacco user Cigarette Packs Per Day: 10 Cigarettes Per Day: 8 Years Smoked: 15 Smoked in Last 30 Days: No Use of substances other than those prescribed or required for medical reasons: Yes Substance Use Type: Marijuana Substance Use Frequency: Chronic Longstanding Advance Directives: No Advance Directives Information Provided: Yes Do you have a plan to hurt others: No Plan Nutrition Risks: No Nutritional Risk Patient : No service: No Current occupational status: disabled 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 Cognitive needs: No Hearing needs: No Vision needs: No Meds Allergies Allergy/AdvReac Type Severity Reaction Status Date / Time acetaminophen [From TYLENOL] Allergy Severe ANAPHYLAXIS Verified 01/15/24 09:40 Penicillins [PENICILLINS] Allergy Severe HIVES Verified 01/15/24 09:40 Active Medications: Current Medications Calcium Carbonate (Calcium Carbonate 750 Mg Tab.Chew) 750 mg PO Q4H PRN PRN Reason: Heartburn Folic Acid (Folic Acid 1 Mg Tablet) 1 mg PO DAILY [facility] Stop: 01/19/24 08:59 Last Admin: 01/16/24 10:09 Dose: 1 mg Hydroxyzine HCl (Hydroxyzine Hcl 25 Mg Tablet) 25 mg PO BID PRN PRN Reason: anxiety Last Admin: 01/16/24 02:55 Dose: 25 mg Lidocaine (Lidocaine 4 % Patch Adh..Patch) 1 patch TRANSDERMA DAILY [facility]; Protocol Last Admin: 01/16/24 17:35 Dose: 1 patch Magnesium Hydroxide (Milk Of Magnesia 30 Ml Oral.Susp) 30 ml PO DAILY PRN PRN Reason: Constipation Melatonin (Melatonin 3 Mg Tablet) 6 mg PO BEDTIME PRN PRN Reason: Insomnia Multivitamins/Vitamin C (Multivitamin Tablet) 1 tab PO DAILY [facility] Stop: 01/19/24 08:59 Last Admin: 01/16/24 10:10 Dose: 1 tab Nicotine (Nicotine 7 Mg Patch.Td24) 7 mg TRANSDERMA DAILY [facility] Last Admin: 01/16/24 10:10 Dose: 7 mg Omeprazole (Omeprazole 20 Mg Capsule.Dr) 20 mg PO DAILY@0630 [facility] Oxycodone HCl (Oxycodone Hcl Immed Release 5 Mg Tablet) 5 mg PO Q6H PRN PRN Reason: Pain, Moderate(Pain Scale 4-6) Last Admin: 01/16/24 17:34 Dose: 5 mg Pharmacy Consult (Consult Rx Etoh Phenob Im/Po) 1 each MISCELLANE ONCE PRN; Protocol PRN Reason: Consult order Phenobarbital (Phenobarbital 30 Mg Tablet) 30 mg PO BID [facility] Stop: 01/17/24 21:01 Last Admin: 01/16/24 10:11 Dose: 30 mg Phenobarbital (Phenobarbital 15 Mg Tablet) 15 mg PO BID [facility] Stop: 01/19/24 21:01 Phenobarbital (Phenobarbital 15 Mg Tablet) 15 mg PO DAILY [facility] Stop: 01/21/24 09:01 Polyethylene Glycol (Polyethylene Glycol 3350 17 Gm Powd.Pack) 17 gm PO DAILY [facility] Last Admin: 01/16/24 17:34 Dose: 17 gm Sodium Chloride (0.9 % Sodium Chloride Flush 3 Ml Syringe) 3 ml IVFLUSH QSHIFT [facility] Last Admin: 01/16/24 17:37 Dose: 3 ml Thiamine HCl (Thiamine Hcl 100 Mg Tablet) 100 mg PO DAILY [facility] Stop: 01/19/24 08:59 Last Admin: 01/16/24 10:10 Dose: 100 mg Home Medications ?Medication ?Instructions ?Recorded ?Confirmed ?Last Taken ?Type buprenorphine 8 mg-naloxone 2 mg 1 film sublingual DAILY 01/15/24 01/15/24 Unknown History sublingual film Physical Exam Vital Signs: Vital Signs: Last Vital Signs Temp 98.4 F 01/16/24 05:52 Pulse 107 H 01/16/24 16:20 Resp 16 01/16/24 16:20 BP 150/107 H 01/16/24 16:20 Pulse Ox 98 01/16/24 16:20 O2 Del Method Room Air 01/16/24 16:20 BMI result Body Mass Index 24.4 Results Labs 01/16/24 05:14 01/16/24 05:14 Labs: Short CBC 01/16/24 Range/Units 05:14 WBC 8.6 (4.8-10.8) X10*3/uL Hgb 12.0 (12.0-16.0) g/dl Hct 34.7 L (37.0-47.0) % Plt Count 63 L D (160-400) X10*3/uL BMP 01/15/24 01/16/24 18:22 05:14 Sodium 135 137 Potassium 3.5 D 3.4 Chloride 101 101 Carbon Dioxide 28 23 BUN 10 7 L Creatinine 0.75 0.67 Calcium 9.0 D 9.7 D Liver Function 01/16/24 Range/Units 05:14 Total Bilirubin 1.3 H (0.0-1.0) mg/dL AST 123 H (5-31) U/L ALT 53 H (0-31) U/L Alkaline Phosphatase 114 (39-117) U/L Albumin 3.8 (3.5-5.0) g/dL Urine 01/15/24 Range/Units 18:14 Urine Color Yellow Urine Appearance Cloudy Urine pH 7.0 (5.0-9.0) Ur Specific [place] 1.015 (1.005-1.025) Urine Protein 30 (1+) H (Neg-Trace) mg/dL Urine Glucose (UA) Negative (Negative) mg/dL Assessment and Plan (1) Seizure: Status: Acute Start Keppra 500mg bid . Out patient 48 hr EEG at [facility] Date of Service Date of Service: 01/16/24
--- NOTE | 2024-01-16 18:53 | P.CNGI_ITS ---
History of Present Illness Data of Consult Service Date: 01/16/24 Requesting physician: Marie Leslie Primary Care Provider: KEN De Los Santos HPI Reason for consult: abn imaging 43-year-old female with a past medical history significant for substance use disorder, anxiety, and possible seizure disorder , HLD, anxiety, alcoholic hepatitis and alcohol abuse who I am seeing for abn imaging. Patient was admitted after and fall and head injury after a possible seizure. She had imaging which revealed patchy areas of colitis and question of crohns. She has no abdominal pain right now but does admit if she eats certain greasy or fatty foods she will get mild lower abdo crampy pain in both quadrants for 20 mins then 1-2 d of diarrhea. These attacks are episodic with nomal stools in between. She is vague about alcohol intake but does admit to using 1200 mg ibuprofen on a very frequent basis. She denies nausea or vomiting, no headache or focal neurological symptoms. She does admit to joint swelling and stiffness in both hands. Review of Systems 2 Review of Systems: Constitutional : No Weight loss, No Fever, No Chills ENT/Mouth : No sore throat, No Rhinorrhea Eyes: No Swelling, No Redness Cardiovascular : No Chest Pain, No SOB, No Edema Respiratory : No Cough, No Sputum, No Wheezing Gastrointestinal : see HPI Genitourinary : NO Dysuria, No Urinary Frequency, No Hematuria, No Urgency Musculoskeletal : + joint pain, No Myalgias, No Joint Swelling Skin : No Skin Lesions, No rash Neuro : No Weakness, No Numbness, No Dizziness, No Headache Psych : No Anxiety/Panic, No Depression Heme/Lymph: No Bruising, No Lymphadenopathy Endocrine : No Polyuria, No Polydipsia All other systems reviewed and are negative. [facility] Past Medical History Medical History Low vitamin D level Encounter to establish care Ankle syndesmosis disruption Bimalleolar fracture of left ankle Sinus tachycardia Unilateral agenesis of kidney Hepatic steatosis Melanoma Skin cancer Seizures Family History Family History Mother Heart attack Father No problems noted. Surgical History Surgical History Status post ORIF of fracture of ankle Hx of section Social History Social History Alcohol intake: current Alcohol intake frequency: a few times a month Patient Tobacco Use Status: Current everyday Tobacco user Cigarette Packs Per Day: 10 Cigarettes Per Day: 8 Years Smoked: 15 Smoked in Last 30 Days: No Use of substances other than those prescribed or required for medical reasons: Yes Substance Use Type: Marijuana Substance Use Frequency: Chronic Longstanding Advance Directives: No Advance Directives Information Provided: Yes Do you have a plan to hurt others: No Plan Nutrition Risks: No Nutritional Risk Patient : No service: No Current occupational status: disabled 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 Cognitive needs: No Hearing needs: No Vision needs: No Meds Allergies Allergy/AdvReac Type Severity Reaction Status Date / Time acetaminophen [From TYLENOL] Allergy Severe ANAPHYLAXIS Verified 01/15/24 09:40 Penicillins [PENICILLINS] Allergy Severe HIVES Verified 01/15/24 09:40 Active Medications: Current Medications Calcium Carbonate (Calcium Carbonate 750 Mg Tab.Chew) 750 mg PO Q4H PRN PRN Reason: Heartburn Folic Acid (Folic Acid 1 Mg Tablet) 1 mg PO DAILY [facility] Stop: 01/19/24 08:59 Last Admin: 01/16/24 10:09 Dose: 1 mg Hydroxyzine HCl (Hydroxyzine Hcl 25 Mg Tablet) 25 mg PO BID PRN PRN Reason: anxiety Last Admin: 01/16/24 02:55 Dose: 25 mg Lidocaine (Lidocaine 4 % Patch Adh..Patch) 1 patch TRANSDERMA DAILY [facility]; Protocol Last Admin: 01/16/24 17:35 Dose: 1 patch Magnesium Hydroxide (Milk Of Magnesia 30 Ml Oral.Susp) 30 ml PO DAILY PRN PRN Reason: Constipation Melatonin (Melatonin 3 Mg Tablet) 6 mg PO BEDTIME PRN PRN Reason: Insomnia Multivitamins/Vitamin C (Multivitamin Tablet) 1 tab PO DAILY [facility] Stop: 01/19/24 08:59 Last Admin: 01/16/24 10:10 Dose: 1 tab Nicotine (Nicotine 7 Mg Patch.Td24) 7 mg TRANSDERMA DAILY [facility] Last Admin: 01/16/24 10:10 Dose: 7 mg Omeprazole (Omeprazole 20 Mg Capsule.Dr) 20 mg PO DAILY@0630 [facility] Oxycodone HCl (Oxycodone Hcl Immed Release 5 Mg Tablet) 5 mg PO Q6H PRN PRN Reason: Pain, Moderate(Pain Scale 4-6) Last Admin: 01/16/24 17:34 Dose: 5 mg Pharmacy Consult (Consult Rx Etoh Phenob Im/Po) 1 each MISCELLANE ONCE PRN; Protocol PRN Reason: Consult order Phenobarbital (Phenobarbital 30 Mg Tablet) 30 mg PO BID [facility] Stop: 01/17/24 21:01 Last Admin: 01/16/24 10:11 Dose: 30 mg Phenobarbital (Phenobarbital 15 Mg Tablet) 15 mg PO BID [facility] Stop: 01/19/24 21:01 Phenobarbital (Phenobarbital 15 Mg Tablet) 15 mg PO DAILY [facility] Stop: 01/21/24 09:01 Polyethylene Glycol (Polyethylene Glycol 3350 17 Gm Powd.Pack) 17 gm PO DAILY [facility] Last Admin: 01/16/24 17:34 Dose: 17 gm Sodium Chloride (0.9 % Sodium Chloride Flush 3 Ml Syringe) 3 ml IVFLUSH QSHIFT [facility] Last Admin: 01/16/24 17:37 Dose: 3 ml Thiamine HCl (Thiamine Hcl 100 Mg Tablet) 100 mg PO DAILY [facility] Stop: 01/19/24 08:59 Last Admin: 01/16/24 10:10 Dose: 100 mg Home Medications ?Medication ?Instructions ?Recorded ?Confirmed ?Last Taken ?Type buprenorphine 8 mg-naloxone 2 mg 1 film sublingual DAILY 01/15/24 01/15/24 Unknown History sublingual film Physical Exam 2 Vital Signs: Vital Signs: Last Vital Signs Temp 98.4 F 01/16/24 05:52 Pulse 107 H 01/16/24 16:20 Resp 16 01/16/24 16:20 BP 150/107 H 01/16/24 16:20 Pulse Ox 98 01/16/24 16:20 O2 Del Method Room Air 01/16/24 16:20 BMI result Body Mass Index 24.4 EXAM: GENERAL: The patient is well developed and nontoxic. VITAL SIGNS:see workflow HEENT: Nonicteric sclerae, PERRLA, EOMI. Oropharynx clear. Moist mucous membranes. Conjunctivae appear well perfused. No thyroid mass. CHEST: Chest wall is nontender. HEART: Regular rate and rhythm without murmurs. LUNGS: Clear to auscultation bilaterally. ABDOMEN: Soft, positive bowel sounds, nontender, no organomegaly.no flank tenderness SKIN: No rash, no excessive bruising, petechiae, or purpura. NEUROLOGIC: Cranial nerves II-XII intact without motor/sensory deficit. Psych: normal affect Results Labs 01/16/24 05:14 01/16/24 05:14 Labs: Short CBC 01/16/24 Range/Units 05:14 WBC 8.6 (4.8-10.8) X10*3/uL Hgb 12.0 (12.0-16.0) g/dl Hct 34.7 L (37.0-47.0) % Plt Count 63 L D (160-400) X10*3/uL BMP 01/16/24 05:14 Sodium 137 Potassium 3.4 Chloride 101 Carbon Dioxide 23 BUN 7 L Creatinine 0.67 Calcium 9.7 D Liver Function 01/16/24 Range/Units 05:14 Total Bilirubin 1.3 H (0.0-1.0) mg/dL AST 123 H (5-31) U/L ALT 53 H (0-31) U/L Alkaline Phosphatase 114 (39-117) U/L Albumin 3.8 (3.5-5.0) g/dL Imaging CT scan - abdomen: Attestation: I personally reviewed and interpreted this imaging study as follows: (hepatic steatosis, thickened cecum and rectum, fecal loading, enlarged right kidney, left not seen) Assessment and Plan (1) Transaminitis: Status: Acute (2) Colitis: Status: Acute Plan 1/ Colitis, ddx: crohns, nsaid related colitis, stercoral colitis, less likely infectious or ischemic--does have joitn pains, no apthous ulcers or other extraintestinal sx 2/ Abn LFT could be alcohol related, MASh related or from skeletal muscle PLAN: 1/ complete seizure workup 2/ o/p EGD. colonoscopy unless there is change in clinical status whilst in patient 3/ if any inpatient diarrhea check c diff, GI PCR panel 4/ advised to avoid nsaids, can use tylenol < 2 g daily 5/ treat constipation with miralax BID and colace to begin with Procedures Date of Service Date of Service: 01/16/24
[2024-01-16 21:00] VITALS: BP 163/98; PULSE 96; RESP 16; TEMP 37; O2SAT 99
[2024-01-17] VITALS: BP 145/92; PULSE 105; RESP 18; TEMP 37; O2SAT 93
[2024-01-17] MEDS: oxyCODONE HCl Immed Release 5 MG TABLET PO ×4 (01:38→21:19)
[2024-01-17] MEDS: hydrOXYzine HCL 25 MG TABLET PO (05:58)
[2024-01-17] MEDS: Omeprazole 20 MG CAPSULE.DR PO (05:58)
[2024-01-17 07:02] LABS: Imm Gran Abs Auto 0.03 X10*3/uL (0.00-0.03); Imm Gran Pct Auto 0.4 % (0.0-0.4); Lymphocytes Absolute Auto 2.1 X10*3/uL (1.2-4.9); MANUAL DIFF FLAG SCAN; PLT CLUMP 1; SCAN SMEAR FLAG 1
[2024-01-17 07:04] LABS: Basophils Absolute Auto 0.1 X10*3/uL (0.0-0.2); Basophils Percent Auto 0.7 % (0-2); Eosinophils Absolute Auto 0.2 X10*3/uL (0.0-0.4); Eosinophils Percent Auto 2.4 % (0-4); Hematocrit 34.3 % (37.0-47.0); Lymphocytes Percent Auto 27.3 % (20-40); Mean Corpuscular Hemoglobin 32.5 pg (27.0-33.0); Mean Platelet Volume 10.4 fL (9.4-12.3); Monocytes Absolute Auto 1.2 X10*3/uL (0.1-1.2); Monocytes Percent Auto 15.7 % (2-11); Neutrophils Absolute Auto 4.1 x10*3/uL (2.0-8.3); Neutrophils Percent Auto 53.5 % (45-73); Red Blood Count 3.69 X10*6/uL (4.20-5.50); Red Cell Distribution Width 15.2 % (11.0-16.0)
[2024-01-17 07:27] LABS: Alanine Aminotransferase 52 U/L (0-31); Albumin Level 3.9 g/dL (3.5-5.0); Alkaline Phosphatase 130 U/L (39-117); Anion Gap 14 (12-20); Aspartate Amino Transferase 92 U/L (5-31); Bilirubin Total 0.8 mg/dL (0.0-1.0); Blood Urea Nitrogen 11 mg/dL (9-16); Calcium 10.7 mg/dL (8.4-10.2); Carbon Dioxide 26 mmol/L (22-29); Chloride 99 mmol/L (96-108); Creatinine Clr Calc Pharmacy 78.9; Estimated Glomerular Filt Rate > 60; Glucose Random 95 mg/dL (60-115); Magnesium 1.7 mg/dL (1.6-2.6); Potassium 3.3 mmol/L (3.3-5.1); Sodium 136 mmol/L (135-145)
[2024-01-17 07:41] LABS: Platelet Count 97 X10*3/uL (160-400); SLIDE REVIEW VERIFIED; White Blood Count 7.6 X10*3/uL (4.8-10.8)
[2024-01-17 07:48] VITALS: BP 134/98; PULSE 99; RESP 17; TEMP 36.6; O2SAT 98
[2024-01-17] MEDS: PHENobarbitaL 30 MG TABLET PO ×2 (08:09→21:20)
[2024-01-17] MEDS: Multivitamin TABLET 1 TAB PO (08:10)
[2024-01-17] MEDS: Folic Acid 1 MG TABLET PO (08:10)
[2024-01-17] MEDS: Thiamine HCL 100 MG TABLET PO (08:10)
[2024-01-17] MEDS: 0.9 % Sodium Chloride Flush 3 ML SYRINGE IVFLUSH ×3 (08:10→22:57)
[2024-01-17] MEDS: Nicotine 7 MG PATCH.TD24 TRANSDERMA (08:12)
[2024-01-17] MEDS: Lidocaine 4 % Patch ADH..PATCH 1 PATCH TRANSDERMA (08:17)
[2024-01-17] MEDS: levETIRAcetam 500 MG TABLET PO ×2 (08:25→21:19)
--- NOTE | 2024-01-17 11:48 | MHC.RECOVSUP ---
pt still claims that she is only drinking occasionally with moderation. pt was interested in [employer], had her filled out referral. Submitted referral to Camacho Feliciano at [facility] via Email. Pt lives in [place], but will meet future RC in [place] to meet logistical requirements.
[2024-01-17 11:58] VITALS: BP 133/92; PULSE 101; RESP 16; TEMP 36.8; O2SAT 98
--- NOTE | 2024-01-17 12:32 | HO.PM.IMPN ---
Subjective Subjective Date of Service: 01/17/24 Interval History: still a little shaky; no further seizures no diarrhea Review of Systems Review of Systems: Yes all other systems are reviewed and are negative Physical Exam Vital Signs: Vital Signs: Last Vital Signs Temp 98.3 F 01/17/24 11:58 Pulse 101 H 01/17/24 11:58 Resp 16 01/17/24 11:58 BP 133/92 H 01/17/24 11:58 Pulse Ox 98 01/17/24 11:58 O2 Del Method Room Air 01/17/24 11:58 BMI result Body Mass Index 24.4 Gen: in no acute distress HEENT: sclera anicteric, moist mucus membranes Neck: supple Lungs: clear to auscultation bilaterally Heart: regular rate and rhythm, no murmurs Abd: soft, non-tender, non-distended Ext: no edema Skin: warm/well-perfused Neuro: alert and oriented x3, no focal findings Psych: appropriate affect Objective Data Active Medications Calcium Carbonate (Calcium Carbonate 750 Mg Tab.Chew) 750 mg PO Q4H PRN PRN Reason: Heartburn Folic Acid (Folic Acid 1 Mg Tablet) 1 mg PO DAILY [facility] Stop: 01/19/24 08:59 Last Admin: 01/17/24 08:10 Dose: 1 mg Documented By: NEO Hydroxyzine HCl (Hydroxyzine Hcl 25 Mg Tablet) 25 mg PO BID PRN PRN Reason: anxiety Last Admin: 01/17/24 05:58 Dose: 25 mg Documented By: CHEKO Levetiracetam (Levetiracetam 500 Mg Tablet) 500 mg PO BID [facility] Last Admin: 01/17/24 08:25 Dose: 500 mg Documented By: NEO Lidocaine (Lidocaine 4 % Patch Adh..Patch) 1 patch TRANSDERMA DAILY [facility]; Protocol Last Admin: 01/17/24 08:17 Dose: 1 patch Documented By: NEO Magnesium Hydroxide (Milk Of Magnesia 30 Ml Oral.Susp) 30 ml PO DAILY PRN PRN Reason: Constipation Melatonin (Melatonin 3 Mg Tablet) 6 mg PO BEDTIME PRN PRN Reason: Insomnia Multivitamins/Vitamin C (Multivitamin Tablet) 1 tab PO DAILY [facility] Stop: 01/19/24 08:59 Last Admin: 01/17/24 08:10 Dose: 1 tab Documented By: NEO Nicotine (Nicotine 7 Mg Patch.Td24) 7 mg TRANSDERMA DAILY [facility] Last Admin: 01/17/24 08:12 Dose: 7 mg Documented By: NEO Omeprazole (Omeprazole 20 Mg Capsule.Dr) 20 mg PO DAILY@0630 [facility] Last Admin: 01/17/24 05:58 Dose: 20 mg Documented By: CHEKO Oxycodone HCl (Oxycodone Hcl Immed Release 5 Mg Tablet) 5 mg PO Q6H PRN PRN Reason: Pain, Moderate(Pain Scale 4-6) Last Admin: 01/17/24 08:10 Dose: 5 mg Documented By: NEO Pharmacy Consult (Consult Rx Etoh Phenob Im/Po) 1 each MISCELLANE ONCE PRN; Protocol PRN Reason: Consult order Phenobarbital (Phenobarbital 30 Mg Tablet) 30 mg PO BID [facility] Stop: 01/17/24 21:01 Last Admin: 01/17/24 08:09 Dose: 30 mg Documented By: NEO Phenobarbital (Phenobarbital 15 Mg Tablet) 15 mg PO BID [facility] Stop: 01/19/24 21:01 Phenobarbital (Phenobarbital 15 Mg Tablet) 15 mg PO DAILY [facility] Stop: 01/21/24 09:01 Polyethylene Glycol (Polyethylene Glycol 3350 17 Gm Powd.Pack) 17 gm PO DAILY [facility] Last Admin: 01/17/24 09:35 Dose: Not Given Documented By: NEO Non-Admin Reason: Patient Refused Sodium Chloride (0.9 % Sodium Chloride Flush 3 Ml Syringe) 3 ml IVFLUSH QSSCFT [facility] Last Admin: 01/17/24 08:10 Dose: 3 ml Documented By: NEO Thiamine HCl (Thiamine Hcl 100 Mg Tablet) 100 mg PO DAILY [facility] Stop: 01/19/24 08:59 Last Admin: 01/17/24 08:10 Dose: 100 mg Documented By: NEO Labs 01/17/24 06:12 01/17/24 06:12 Labs: Laboratory Results - last 24 hr 01/17/24 06:12 MCV 93.0 MCH 32.5 MCHC 35.0 RDW 15.2 Plt Count 97 L D MPV 10.4 Immature Gran % (Auto) 0.4 Neut % (Auto) 53.5 Lymph % (Auto) 27.3 [place] % (Auto) 15.7 H Eos % (Auto) 2.4 Baso % (Auto) 0.7 Lymph # (Auto) 2.1 [place] # (Auto) 1.2 Eos # (Auto) 0.2 Baso # (Auto) 0.1 Abs Immat Gran (auto) 0.03 Absolute Neuts (auto) 4.1 Absolute Nucleated RBC 0.000 Nucleated RBC % (auto) 0.0 Smear Tech's Comments VERIFIED Anion Gap 14 Estim Creat Clear Calc 78.9 Estimated GFR > 60 Random Glucose 95 Calcium 10.7 H D Magnesium 1.7 Total Bilirubin 0.8 AST 92 H ALT 52 H Alkaline Phosphatase 130 H Total Protein 7.0 Albumin 3.9 Assessment and Plan (1) Tobacco abuse: Status: Acute (2) Hypokalemia: Status: Acute (3) History of ETOH abuse: Status: Acute (4) Seizure: Status: Acute (5) Hypomagnesemia: Status: Acute Plan d3 for 43yo F with substance use disorder, anxiety, question of seizure disorder, HLD, anxiety, EtOH abuse presenting after a seizure started on phenobarbital taper due to hx EtOH abuse and poor history seizure - Neuro workup at [facility] with multiple EEGs negative in 2019 and seizures were attributed to EtOH withdrawal - continue phenobarbital taper for EtOH withdrawal - per Neurology start levetiracetam; EEG pending hypoK hypoMg - relpeted EtOH abuse - Addiction Medicine consulted - continue folic acid, thiamine; phenobarbital taper substance use disorder - pt does not want to continue Suboxone in the hospital colitis - CT A/P with known L renal atrophy; multiple areas of thickened bowel concerning for Crohn's disease. GI consulted and pt will f/u as outpt for colonoscopy back pain - prn oxycodone, lidocaine tobacco abuse - NRT VTE prophylaxis - enoxaparin dispo - eventual home In my clinical judgment, the patient requires continued inpatient hospitalization for the following reasons: phenobarbital taper, EEG Total time managing care of this patient today: 35 minutes. Quality Stroke Does the patient have a stroke diagnosis?: No VTE Prior VTE?: No VTE Risk Level:: Medical - moderate - high VTE Device Contraindication: Treatment Not Indicated VTE Drug Contraindication: N/A - Med Ordered
[2024-01-17 15:23] VITALS: BP 133/91; PULSE 99; RESP 20; TEMP 37.1; O2SAT 98
[2024-01-17 19:28] VITALS: BP 138/94; PULSE 87; RESP 18; TEMP 36.6; O2SAT 98
[2024-01-17] MEDS: Melatonin 3 MG TABLET 6 MG PO (21:20)
[2024-01-17 23:15] VITALS: BP 131/78; PULSE 91; RESP 18; TEMP 36.6; O2SAT 99
[2024-01-18 03:26] VITALS: BP 112/73; PULSE 81; RESP 14; TEMP 36.2; O2SAT 97
[2024-01-18 07:06] LABS: Alanine Aminotransferase 74 U/L (0-31); Albumin Level 4.1 g/dL (3.5-5.0); Alkaline Phosphatase 136 U/L (39-117); Anion Gap 16 (12-20); Aspartate Amino Transferase 135 U/L (5-31); Basophils Absolute Auto 0.1 X10*3/uL (0.0-0.2); Basophils Percent Auto 0.9 % (0-2); Bilirubin Total 0.7 mg/dL (0.0-1.0); Blood Urea Nitrogen 10 mg/dL (9-16); Calcium 10.4 mg/dL (8.4-10.2); Carbon Dioxide 25 mmol/L (22-29); Chloride 98 mmol/L (96-108); Creatinine Clr Calc Pharmacy 75.6; Eosinophils Absolute Auto 0.3 X10*3/uL (0.0-0.4); Eosinophils Percent Auto 3.5 % (0-4); Estimated Glomerular Filt Rate > 60; Glucose Random 96 mg/dL (60-115); Hematocrit 35.4 % (37.0-47.0); Imm Gran Abs Auto 0.04 X10*3/uL (0.00-0.03); Imm Gran Pct Auto 0.4 % (0.0-0.4); Lymphocytes Absolute Auto 2.7 X10*3/uL (1.2-4.9); Lymphocytes Percent Auto 29.3 % (20-40); MANUAL DIFF FLAG SCAN; Mean Corpuscular HGB Conc 33.9 g/dl (31.0-35.0); Mean Corpuscular Hemoglobin 31.8 pg (27.0-33.0); Mean Corpuscular Volume 93.9 fL (80.0-98.0); Mean Platelet Volume 10.3 fL (9.4-12.3); Monocytes Absolute Auto 1.9 X10*3/uL (0.1-1.2); Monocytes Percent Auto 20.8 % (2-11); Neutrophils Absolute Auto 4.2 x10*3/uL (2.0-8.3); Neutrophils Percent Auto 45.1 % (45-73); Platelet Count 179 X10*3/uL (160-400); Potassium 3.3 mmol/L (3.3-5.1); Red Blood Count 3.77 X10*6/uL (4.20-5.50); Red Cell Distribution Width 15.7 % (11.0-16.0); SCAN SMEAR FLAG 1; Sodium 136 mmol/L (135-145); Total Protein 7.5 g/dL (6.5-8.0); White Blood Count 9.2 X10*3/uL (4.8-10.8)
[2024-01-18 07:42] LABS: SLIDE REVIEW VERIFIED
[2024-01-18 07:49] VITALS: BP 134/92; PULSE 86; RESP 18; TEMP 36.3; O2SAT 100
[2024-01-18] MEDS: Multivitamin TABLET 1 TAB PO (09:07)
[2024-01-18] MEDS: Thiamine HCL 100 MG TABLET PO (09:07)
[2024-01-18] MEDS: levETIRAcetam 500 MG TABLET PO (09:08)
[2024-01-18] MEDS: Folic Acid 1 MG TABLET PO (09:08)
[2024-01-18] MEDS: PHENobarbitaL 15 MG TABLET PO (09:08)
[2024-01-18] MEDS: Nicotine 7 MG PATCH.TD24 TRANSDERMA (09:08)
[2024-01-18] MEDS: Lidocaine 4 % Patch ADH..PATCH 1 PATCH TRANSDERMA (09:09)
[2024-01-18] MEDS: 0.9 % Sodium Chloride Flush 3 ML SYRINGE IVFLUSH (09:09)
--- NOTE | 2024-01-18 10:52 | P.DS_ITS ---
DS: Providers Provider Date of Service: 01/18/24 Date of admission: 01/15/24 13:41 Date of discharge: 01/18/24 Primary care physician: KEN De Los Santos Consults: 01/15/24 13:39 Consult to Neurology Routine Consulting Provider: [facility] Reason for consultation: ?seizure vs etoh withdrawal Has provider been notified: No 01/15/24 13:41 Addiction Medicine Routine Consulting Provider: Addiction Covering Reason for consultation: VICENTE and etoh Has provider been notified: No 01/15/24 15:05 Consult to Gastroenterology Routine Consulting Provider: Martha Paula Reason for consultation: ?colitis on CT Has provider been notified: No DS: Diagnosis Discharge Diagnosis (1) Tobacco abuse: Status: Acute (2) Hypokalemia: Status: Acute (3) History of ETOH abuse: Status: Acute (4) Seizure: Status: Acute (5) Hypomagnesemia: Status: Acute (6) Alcoholic hepatitis: Status: Acute (7) History of opioid abuse: Status: Acute (8) Colitis: Status: Acute DS: Summary Hospital Course Hospital Course: From the history and physical by the admitting hospitalist, LA Matute, 01/15/24: Patient is a 43-year-old female with a past medical history significant for substance use disorder, anxiety, ?seizure disorder (no diagnostic evidence of diagnosis, previously seizure med for a short period of time), HLD, anxiety, alcoholic hepatitis and alcohol abuse who presented to the ED today after a reported seizure where she fell backwards, hit her head, but did not lose consciousness. She reports lower abdominal pain, mid to low back pain, no urinary symptoms. Substance use history is difficult to obtain, she gave very unclear answers and reported her last drink was yesterday to the ED provider however told me days ago. She also reports her last seizure was about 3 months ago, she reports she missed her medication. She does report a headache, no nausea or vomiting. She has chronic shortness of breath which has not changed from baseline. She denies any recent drug abuse and reports that she is no longer taking Suboxone. d3 for 43yo F with substance use disorder, anxiety, question of seizure disorder, HLD, anxiety, and EtOH abuse presenting after a seizure. She was admitted to the telemetry unit and started on phenobarbital taper due to hx EtOH abuse and poor history. Regarding her seizure history, a prior neurologic workup at [facility] with multiple EEGs in 2019 was negative and seizures then were attributed to EtOH withdrawal. Neurology was consulted and recommended starting her on levetiracetam. An EEG was done and the final results are pending at this time. If normal, consideration should be given to a 48-hour ambulatory EEG as an outpatient. She will follow up with Neurology at [facility] as an [place]. She was advised to avoid driving and to avoid alcohol. Addiction Medicine was consulted and she will be set up with a cricket coach. Hypokalemia and hypomagnesemia resolved with repletion. CT of the abdomen and pelvis on admission showed multiple areas of thickened bowel concerning for Crohn's disease. She denied any abdominal pain or diarrhea. Gastroenterology was consulted and she will be seen as an outpatient for a colonoscopy. She was discharged home with prescriptions for levetiracetam, nicotine patch, thiamine, folate, and multivitamin. Time Attestation Discharge Coordination Time (in mins): 35 Quality: Safe Use of Opioids Does Pt have an Active Cancer Diagnosis on the Problem List?: No Quality: Stroke Does the patient have a stroke diagnosis?: No Physical Exam Vital Signs: Vital Signs: Last Vital Signs Temp 97.3 F 01/18/24 07:49 Pulse 86 01/18/24 07:49 Resp 18 01/18/24 07:49 BP 134/92 H 01/18/24 07:49 Pulse Ox 100 01/18/24 07:49 O2 Del Method Room Air 01/18/24 07:49 BMI result Body Mass Index 24.4 Gen: in no acute distress HEENT: sclera anicteric, moist mucus membranes Neck: supple Lungs: clear to auscultation bilaterally Heart: regular rate and rhythm, no murmurs Abd: soft, non-tender, non-distended Ext: no edema Skin: warm/well-perfused Neuro: alert and oriented x3, no focal findings Psych: appropriate affect DS: Data Data Completed and Pending Completed studies during hospitalization [Text1]: Laboratory Results WBC 9.2 X10*3/uL (4.8-10.8) 01/18/24 06:36 RBC 3.77 X10*6/uL (4.20-5.50) L 01/18/24 06:36 Hgb 12.0 g/dl (12.0-16.0) 01/18/24 06:36 Hct 35.4 % (37.0-47.0) L 01/18/24 06:36 MCV 93.9 fL (80.0-98.0) 01/18/24 06:36 MCH 31.8 pg (27.0-33.0) 01/18/24 06:36 MCHC 33.9 g/dl (31.0-35.0) 01/18/24 06:36 RDW 15.7 % (11.0-16.0) 01/18/24 06:36 Plt Count 179 X10*3/uL (160-400) D 01/18/24 06:36 MPV 10.3 fL (9.4-12.3) 01/18/24 06:36 Immature Gran % (Auto) 0.4 % (0.0-0.4) 01/18/24 06:36 Neut % (Auto) 45.1 % (45-73) 01/18/24 06:36 Lymph % (Auto) 29.3 % (20-40) 01/18/24 06:36 [place] % (Auto) 20.8 % (2-11) H 01/18/24 06:36 Eos % (Auto) 3.5 % (0-4) 01/18/24 06:36 Baso % (Auto) 0.9 % (0-2) 01/18/24 06:36 Lymph # (Auto) 2.7 X10*3/uL (1.2-4.9) 01/18/24 06:36 [place] # (Auto) 1.9 X10*3/uL (0.1-1.2) H 01/18/24 06:36 Eos # (Auto) 0.3 X10*3/uL (0.0-0.4) 01/18/24 06:36 Baso # (Auto) 0.1 X10*3/uL (0.0-0.2) 01/18/24 06:36 Abs Immat Gran (auto) 0.04 X10*3/uL (0.00-0.03) H 01/18/24 06:36 Absolute Neuts (auto) 4.2 x10*3/uL (2.0-8.3) 01/18/24 06:36 Absolute Nucleated RBC 0.000 X10*3/uL (0.0-0.012) 01/18/24 06:36 Nucleated RBC % (auto) 0.0 /100WBC (0.0-0.2) 01/18/24 06:36 Smear Tech's Comments VERIFIED 01/18/24 06:36 Sodium 136 mmol/L (135-145) 01/18/24 06:36 Potassium 3.3 mmol/L (3.3-5.1) 01/18/24 06:36 Chloride 98 mmol/L (96-108) 01/18/24 06:36 Carbon Dioxide 25 mmol/L (22-29) 01/18/24 06:36 Anion Gap 16 (12-20) 01/18/24 06:36 BUN 10 mg/dL (9-16) 01/18/24 06:36 Creatinine 0.71 mg/dL (0.5-1.4) 01/18/24 06:36 Estim Creat Clear Calc 75.6 01/18/24 06:36 Estimated GFR > 60 01/18/24 06:36 Random Glucose 96 mg/dL (60-115) 01/18/24 06:36 Calcium 10.4 mg/dL (8.4-10.2) H 01/18/24 06:36 Magnesium 1.7 mg/dL (1.6-2.6) 01/17/24 06:12 Total Bilirubin 0.7 mg/dL (0.0-1.0) 01/18/24 06:36 Direct Bilirubin 0.6 mg/dL (0.0-0.5) H 01/15/24 10:03 AST 135 U/L (5-31) H 01/18/24 06:36 ALT 74 U/L (0-31) H 01/18/24 06:36 Alkaline Phosphatase 136 U/L (39-117) H 01/18/24 06:36 Total Creatine Kinase 106 U/L (26-140) 01/15/24 10:03 Total Protein 7.5 g/dL (6.5-8.0) 01/18/24 06:36 Albumin 4.1 g/dL (3.5-5.0) 01/18/24 06:36 Lipase 11 U/L (8-78) 01/15/24 10:03 Beta HCG, Quant < 2 mIU/mL 01/15/24 10:03 Urine Color Yellow 01/15/24 18:14 Urine Appearance Cloudy 01/15/24 18:14 Urine pH 7.0 (5.0-9.0) 01/15/24 18:14 Ur Specific [place] 1.015 (1.005-1.025) 01/15/24 18:14 Urine Protein 30 (1+) mg/dL (Neg-Trace) H 01/15/24 18:14 Urine Glucose (UA) Negative mg/dL (Negative) 01/15/24 18:14 Urine Ketones Negative mg/dL (Negative) 01/15/24 18:14 Urine Blood Negative (Negative) 01/15/24 18:14 Urine Nitrite Negative (Negative) 01/15/24 18:14 Ur Leukocyte Esterase Trace (Negative) H 01/15/24 18:14 Urine RBC 0-2 /HPF (0-2) 01/15/24 18:14 Urine WBC 0-5 /HPF (0-5) 01/15/24 18:14 Ur Squamous Epith Cells 6-10 /HPF (0-2) 01/15/24 18:14 Urine Bacteria 4+ (None Seen) 01/15/24 18:14 Hyaline Casts 0-2 /LPF (0-2) 01/15/24 18:14 Urine Opiates Screen Not Detected (Not Detect) 01/15/24 18:14 Ur Buprenorphine Scrn Positive ng/mL (Not Detect) H 01/15/24 18:14 Ur Oxycodone Screen Not Detected ng/mL (Not Detect) 01/15/24 18:14 Urine Methadone Screen Not Detected ng/mL (Not Detect) 01/15/24 18:14 Urine Fentanyl Screen Not Detected (Not Detect) 01/15/24 18:14 Ur Barbiturates Screen POSITIVE (Not Detect) H 01/15/24 18:14 Ur Phencyclidine Scrn Not Detected (Not Detect) 01/15/24 18:14 Ur Amphetamines Screen Not Detected (Not Detect) 01/15/24 18:14 U Benzodiazepines Scrn POSITIVE (Not Detect) H 01/15/24 18:14 Urine Cocaine Screen Not Detected (Not Detect) 01/15/24 18:14 U Marijuana (THC) Screen POSITIVE (Not Detect) H 01/15/24 18:14 Ethyl Alcohol < 10 mg/dL 01/15/24 10:[address] 01/15/24 10:19 IMPRESSION: 1. No acute intracranial pathology or significant interval change. 2. Chronic deformity of the left lamina papyracea, with orbital fat extending into the left nasal cavity, unchanged since at least most remote available CT of 04/25/2020. 3. Left sphenoid and bilateral maxillary sinus mucosal thickening consistent with chronic sinusitis. Electronically signed by: Roshan Hall MD 01/15/2024 11:54 AM EST RP Lumbar Spine X-Ray 01/15/24 10:19 IMPRESSION: No acute fracture or listhesis on plain radiograph. Probable old superior endplate compression deformity at T12. If patient's symptoms persist recommend CT lumbar spine. Electronically signed by: Joaquin Green MD 01/15/2024 11:16 AM EST RP Cervical Spine CT 01/15/24 11:06 IMPRESSION: 1. No acute cervical spine fracture or subluxation. Fleischner guidelines were followed. Electronically signed by: Roshan Hall MD 01/15/2024 11:57 AM EST RP Abdomen/Pelvis CT 01/15/24 13:57 IMPRESSION: 1. Discontinuous thickening of the cecum, mid descending colon and rectum, findings suggestive of a colitis. In particular, Crohn's disease could have this appearance. A stercoral colitis is also to be considered given fecal residua distending the cecum and ascending colon. 2. No abscess, obstruction or collection, and no evidence of acute appendicitis. 3. Hepatic steatosis. 4. 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 5. T12 30% superior endplate fracture, age indeterminate. Fleischner guidelines were followed. Electronically signed by: Roshan Hall MD 01/15/2024 02:38 PM EST RP Discharge Plan Discharge Anticipated Discharge Date/Time: 01/18/24 10:48 Patient Disposition: Home, Self-Care Discharge Diagnosis: seizure colitis alcohol use disorder Referrals: Martha Paula MD [Physician] - 2 Weeks Galilea Glass MD [Physician] - 2 Weeks Nory Givens FNP [Primary Care Provider] - 1 Week Discharge Medications: New nicotine 7 mg/24 hr Patch 24 Hour 7 mg transdermal DAILY Qty: 30 0RF levetiracetam 500 mg Tablet 500 mg PO BID Qty: 60 0RF folic acid 1 mg Tablet 1 mg PO DAILY Qty: 30 0RF multivitamin [Daily-Jimmy] Tablet 1 tab PO DAILY Qty: 30 0RF thiamine mononitrate (vit B1) 100 mg Tablet 100 mg PO DAILY Qty: 30 0RF Continued trazodone 50 mg tablet 50 mg PO BEDTIME PRN (Reason: Insomnia) Qty: 30 1RF hydroxyzine HCl 25 mg tablet 25 mg PO BID PRN (Reason: anxiety) Qty: 30 1RF cyclobenzaprine 5 mg tablet 5 mg PO TID PRN (Reason: muscle spasm) Qty: 10 0RF buprenorphine-naloxone 8-2 mg film 1 film sublingual DAILY Discharge Orders: Discharge Order (Routine); Ordered 01/18/24 Ordered By: Ottoniel Santos Diet: Advance to usual diet Activity on Discharge: no driving Stand Alone Forms: Patient Portal Discharge page Print Language: Malay Care Plan Goals: seizure control Health Concerns: seizure colitis alcohol use disorder Plan of Treatment: take levetiracetam [Keppra] 500 mg twice daily follow up with Neurology in 2 weeks; may need 48 hr ambulatory EEG no driving quit smoking 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 Return to the hospital if you experience recurrent or worsening symptoms. Assessment: See Discharge Summary.
--- NOTE | 2024-01-18 10:57 | MHC.CM.PN ---
IMM 01/16/24 Patient is discharged to home self care today. Transportation home has been set-up with the [facility] [place] [place] shuttle. A coupon for the ride was provided. 11:35am pick up truck driver is scheduled, in the front lobby. A gift card for the coffee shop was also provided to the patient.
== END 2024-01-18 13:15 | disposition home or self-care (01) | DRG 897 ==
LOC: HO.ED 10:53 → HO.EDOVER 13:42 → HO.IMC 01-16 17:42
PROVIDERS: Hospitalist; Admitting Provider Physician Assistant; Emergency Provider Emergency Medicine; PCP Nurse Practitioner Family; Visit Provider Family Medicine
DX: F10.139 Alcohol abuse with withdrawal, unspecified (principal); F11.20 Opioid dependence, uncomplicated; F17.210 Nicotine dependence, cigarettes, uncomplicated; E87.6 Hypokalemia; R56.9 Unspecified convulsions; K52.9 Noninfective gastroenteritis and colitis, unspecified; K59.00 Constipation, unspecified; E83.42 Hypomagnesemia; Z71.6 Tobacco abuse counseling; Z79.899 Other long term (current) drug therapy
CPT/HCPCS: 36415; 70450; 72100; 72125; 74176; 80048; 80053; 80076; 80307; 81001; 82550; 83690; 83735; 84702; 85025; 93005; 95816; 99285; J2060; J2270; J2560; J3411; J3475; J3480

== ENCOUNTER → 2024-01-15 09:48 | Outpatient (BNV) | payer MEDICARE, MEDICAID, SELFPAY | PROVIDERS: Admitting Provider Physician Assistant; Emergency Provider Emergency Medicine; PCP Nurse Practitioner Family; Visit Provider Internal Medicine Cardiovascular Disease | DX: R00.0 Tachycardia, unspecified (principal) | CPT/HCPCS: 93010 ==

== ENCOUNTER → 2024-01-15 10:19 | Outpatient (BNV) | payer MEDICARE, MEDICAID, SELFPAY | PROVIDERS: Emergency Provider Emergency Medicine; PCP Nurse Practitioner Family; Visit Provider Radiology Diagnostic Radiology | DX: S22.080S Wedge compression fracture of T11-T12 vertebra, sequela (principal) | CPT/HCPCS: 72100 ==

== ENCOUNTER → 2024-01-15 13:41 | Outpatient (BNV) | payer MEDICARE, MEDICAID, SELFPAY | PROVIDERS: Admitting Provider Physician Assistant; Emergency Provider Emergency Medicine; PCP Nurse Practitioner Family; Visit Provider Physician Assistant | DX: E87.6 Hypokalemia (principal); R56.9 Unspecified convulsions; E83.42 Hypomagnesemia; F10.11 Alcohol abuse, in remission; Z72.0 Tobacco use | CPT/HCPCS: 99223; 99232; 99239 ==

== ENCOUNTER → 2024-01-15 13:41 | Outpatient (BNV) | payer MEDICARE, MEDICAID, SELFPAY | PROVIDERS: Admitting Provider Physician Assistant; Emergency Provider Emergency Medicine; PCP Nurse Practitioner Family; Visit Provider Internal Medicine Gastroenterology | DX: R74.01 Elevation of levels of liver transaminase levels (principal); K52.9 Noninfective gastroenteritis and colitis, unspecified | CPT/HCPCS: 99223 ==

== ENCOUNTER → 2024-01-15 13:41 | Outpatient (BNV) | payer MEDICARE, MEDICAID, SELFPAY | PROVIDERS: Admitting Provider Physician Assistant; Emergency Provider Emergency Medicine; PCP Nurse Practitioner Family; Visit Provider Psychiatry & Neurology Neurology | DX: R56.9 Unspecified convulsions (principal) | CPT/HCPCS: 99223 ==

== ENCOUNTER 2024-02-11 08:45 | Inpatient (IN) | payer MEDICARE, MEDICAID, SELFPAY ==
[2024-02-11] VITALS (7 sets, daily range): BP systolic 130–169; BP diastolic 75–110; PULSE 95–116; RESP 16–20; TEMP 36.3–36.9; O2SAT 97–100; BMI 24.2
--- NOTE | ~2024-02-11 | CT_ITS ---
EXAMINATION: CT HEAD WITHOUT CONTRAST CLINICAL INFORMATION: Head trauma. COMPARISON: 01/15/2024, 12/21/2022. TECHNIQUE: Contiguous axial imaging was performed from the skull base to vertex without intravenous administration of contrast. Sagittal, coronal, and thin section axial reformatted images were constructed from the axial data set. This CT examination was performed using dose optimization techniques as appropriate, variously including the following: *Automated exposure control *Adjustment of mA and/or kV according to patient size (this includes techniques or standardized protocols for targeted exams where dose is matched to indication/reason for exam; i.e. extremities or head) *Use of iterative reconstruction technique DLP: 539 mGy-cm FINDINGS: There is no evidence of intracranial hemorrhage or extra-axial fluid collection. There is no mass effect, or edema. No CT evidence of acute territorial infarct. Ventricles, sulci, and cisterns are normal in size and configuration for patient age. No hydrocephalus. No midline shift. Negative Mild patchy white matter foci of hypoattenuation within the supratentorial hemispheric white matter, nonspecific but most likely small vessel ischemic change. This is unchanged. Old lacunar type infarct right anterior gangliocapsular region. Partial empty sella. Globes and orbital contents demonstrate an old left lamina papyracea fracture. Extraconal fat extends into the nasal cavity, as previously. Orbital contents otherwise normal. No extracranial soft tissue abnormalities. The paranasal sinuses, mastoid air cells, and tympanic cavities are normally aerated. Frontal sinuses are hypoplastic. No suspicious bony abnormalities. There are no fractures. CT/CT head/brain wo IV con IMPRESSION: 1. No acute intracranial abnormality. No significant interval change. 2. Stable chronic findings. Electronically signed by: Manfred Chau MD 02/11/2024 12:59 PM [facility]
--- NOTE | ~2024-02-11 | CT_ITS ---
EXAMINATION: CT CERVICAL SPINE WITHOUT CONTRAST CLINICAL INFORMATION: Fall, head and neck trauma. COMPARISON: CT C-spine 01/15/2024, 10/12/2022. TECHNIQUE: Spiral CT of the cervical spine was performed in the axial plane without contrast. Sagittal, coronal, and thin section axial reformatted images were constructed from the axial data set. This CT examination was performed using dose optimization techniques as appropriate, variously including the following: *Automated exposure control *Adjustment of mA and/or kV according to patient size (this includes techniques or standardized protocols for targeted exams where dose is matched to indication/reason for exam; i.e. extremities or head) *Use of iterative reconstruction technique DLP: 272 mGy-cm FINDINGS: There is a mild levoconvex scoliosis, apex at C2-3. There is a mild reversal of the normal lordosis, apex at C5. There is no fracture, or traumatic subluxation identified. There are no focal suspicious bony lesions. Facets are normally aligned. No significant degenerative facet arthropathy present. There are 2 mm degenerative anterolistheses of C3 on C4 and C4 on C5, stable. Disc spaces demonstrate mild disc space narrowing predominantly at C5-6 and C6-7, stable. Left uncinate spurring at C5-6 contributes to moderate left neural foraminal narrowing. Otherwise, no neural foraminal or central canal narrowing. Atlantoaxial joint and craniocervical junction are intact and normally aligned. There are no soft tissue abnormalities or prevertebral soft tissue swelling. Imaged lung apices are clear bilaterally. CT/CT cervical spine wo IV con IMPRESSION: 1. No CT evidence of acute cervical spine fracture or injury. 2. Mild degenerative changes most significant C5-6. Electronically signed by: Manfred Chau MD 02/11/2024 01:04 PM [facility]
[2024-02-11 10:21] LABS: MANUAL DIFF FLAG NO
[2024-02-11 10:23] LABS: Basophils Absolute Auto 0.1 X10*3/uL (0.0-0.2); Basophils Percent Auto 0.7 % (0-2); Eosinophils Absolute Auto 0.1 X10*3/uL (0.0-0.4); Eosinophils Percent Auto 0.4 % (0-4); Hemoglobin 13.2 g/dl (12.0-16.0); Imm Gran Abs Auto 0.05 X10*3/uL (0.00-0.03); Imm Gran Pct Auto 0.4 % (0.0-0.4); Lymphocytes Absolute Auto 1.1 X10*3/uL (1.2-4.9); Lymphocytes Percent Auto 8.5 % (20-40); Mean Corpuscular HGB Conc 35.7 g/dl (31.0-35.0); Mean Corpuscular Volume 89.8 fL (80.0-98.0); Monocytes Absolute Auto 1.1 X10*3/uL (0.1-1.2); Monocytes Percent Auto 8.1 % (2-11); Neutrophils Absolute Auto 10.9 x10*3/uL (2.0-8.3); Neutrophils Percent Auto 81.9 % (45-73); Red Blood Count 4.12 X10*6/uL (4.20-5.50); Red Cell Distribution Width 14.4 % (11.0-16.0); White Blood Count 13.3 X10*3/uL (4.8-10.8)
--- NOTE | 2024-02-11 10:26 | ECG_ITS ---
Test Reason : SEIZURES Blood Pressure : / mmHG Vent. Rate : 104 BPM Atrial Rate : 104 BPM P-R Int : 112 ms QRS Dur : 070 ms QT Int : 348 ms P-R-T Axes : 077 010 044 degrees QTc Int : 457 ms Sinus tachycardia Nonspecific ST and T wave abnormality When compared with ECG of 15-JAN-2024 10:23, No significant changes seen Referred By: Nargis Harrington Electronically Signed By:MAURICE CANTU
[2024-02-11] MEDS: LORazepam 2 MG/ML VIAL IVPUSH (10:34)
[2024-02-11] MEDS: 0.9 % Sodium Chloride 1,000 ML 999 ML IV ×2 (10:40→13:45)
[2024-02-11] MEDS: levETIRAcetam in NaCl (iso-os) 500 MG/100 ML PIGGYBACK 400 MG IV (10:40)
[2024-02-11 10:45] LABS: Platelet Count 81 X10*3/uL (160-400)
--- NOTE | 2024-02-11 10:46 | ED.SEIZURE ---
HPI - Seizure General Chief Complaint: Seizure Stated Complaint: seizure Time Seen by Provider: 02/11/24 10:23 Source: patient, EMS and old records reviewed Mode of arrival: EMS Limitations: no limitations History of Present Illness ED Provider: RASHIDA DUMONT Narrative: 43 yo female with PMH of substance use disorder, anxiety, unclear of seizure disorder started on keppra 500mg BID from December admission but has not been taking it, HLD, anxiety, alcoholic hepatitis and alcohol abuse here with c/o last drink last night who was found outside by family with blood from mouth and confused. She reports her tongue hurts. She states she had another seizure. She denies any recent illness/seizure since DC in December and states she has been doing well. Patient is not compliant with keppra. Patient is not cold to the touch on arrival and is not wet to the touch MD complaint: seizure Onset (ago): hour(s) (DIRECTOR MONEY) Description of Episode: loss of consciousness and tonic-clonic movement Witnessed: No Trauma: Yes (tongue) Seizure History: Yes Place: Outdoors Possible Precipitating Event: alcohol withdrawal Associated symptoms: denies other symptoms Treatments prior to arrival: none Related Data Home Medications ?Medication ?Instructions ?Recorded ?Confirmed buprenorphine 8 mg-naloxone 2 mg 1 film sublingual DAILY 01/15/24 01/15/24 sublingual film Previous Rx's ?Medication ?Instructions ?Recorded hydroxyzine HCl 25 mg tablet 25 mg PO BID PRN anxiety #30 tabs 03/22/22 trazodone 50 mg tablet 50 mg PO BEDTIME PRN Insomnia #30 03/22/22 tabs cyclobenzaprine 5 mg tablet 5 mg PO TID PRN muscle spasm #10 12/21/22 tabs folic acid 1 mg tablet 1 mg PO DAILY #30 tabs 01/18/24 levetiracetam 500 mg tablet 500 mg PO BID #60 tabs 01/18/24 multivitamin (Daily-Jimmy tablet) 1 tab PO DAILY #30 tabs 01/18/24 nicotine 7 mg/24 hr daily 7 mg transdermal DAILY #30 ea 01/18/24 transdermal patch thiamine mononitrate (vit B1) 100 100 mg PO DAILY #30 tabs 01/18/24 mg tablet Allergies Allergy/AdvReac Type Severity Reaction Status Date / Time acetaminophen [From TYLENOL] Allergy Severe ANAPHYLAXIS Verified 12/16/24 08:54 Penicillins [PENICILLINS] Allergy Severe HIVES Verified 02/11/24 08:54 Review of Systems Review of Systems: Constitutional : No Fever, No Chills ENT/Mouth : No sore throat, No Rhinorrhea Eyes: No Eye Pain, No Swelling, No Redness Cardiovascular : No Chest Pain, No SOB, No Dyspnea on Exertion Respiratory : No Cough, No Sputum Gastrointestinal : pos Nausea, No Vomiting, No Diarrhea, No abdominal Pain Genitourinary : No Dysuria, No Urinary Frequency, No Hematuria, Musculoskeletal : No joint pain, No Myalgias, No Joint Swelling Skin : No Skin Lesions, No rash Neuro : No Weakness, No Numbness, No Dizziness, positive Headache, pos seizure Psych : pos Anxiety/Panic, No Depression All other systems reviewed and are negative [facility] Past Medical History Medical History Low vitamin D level Encounter to establish care Ankle syndesmosis disruption Bimalleolar fracture of left ankle Sinus tachycardia Unilateral agenesis of kidney Hepatic steatosis Melanoma Skin cancer Seizures Surgical History Status post ORIF of fracture of ankle Hx of section Family History Family History Mother Heart attack Father No problems noted. Social History Social History Household Members: None Housing: Apartment Do you presently have visiting nurse or other home services: No Alcohol intake: current Alcohol intake frequency: 3 or more drinks per day Alcohol type: hard liquor Patient Tobacco Use Status: Current everyday Tobacco user Tobacco use type: Cigarette Cigarette Packs Per Day: 10 Cigarettes Per Day: 2 Years Smoked: 15 Smoked in Last 30 Days: Yes Use of substances other than those prescribed or required for medical reasons: Yes Substance Use Type: Marijuana Advance Directives: No Advance Directives Information Provided: Yes Do you have a plan to hurt others: No Plan Patient : No service: No Current occupational status: disabled 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 Oriented X3. tremulous and shaky mild acute distress. Eyes: Pupils equal, round and reactive to light. Scleral icterus ENT: Pharynx bilateral sides of tongue contused with abrasions, no active bleeding, no obv external trauma Neck: Normal inspection. Neck supple. CVS: tachycardic heart rate and rhythm. Pulses normal. Respiratory: No respiratory distress. Breath sounds normal. Abdomen: Soft and non-tender. Skin: Skin warm and dry. Normal skin color. Normal skin turgor. Extremities: No lower extremity edema. No calf ttp Neuro: Oriented X 3. No motor deficit. No sensory deficit. Medications Administered Discontinued Medications Generic Name Dose Route Start Last Admin Trade Name Freq PRN Reason Stop Dose Admin Thiamine HCl 200 mg/ Sodium 102 mls @ 204 mls/hr 02/11/24 10:25 02/11/24 12:21 Chloride IV 02/11/24 10:54 204 mls/hr ONCE ONE Administration Sodium Chloride 1,000 mls @ 999 mls/hr 02/11/24 10:26 02/11/24 10:40 Ns IV 02/11/24 11:26 999 mls/hr .Q1H1M ONE Administration Levetiracetam 500 mg in 100 mls @ 400 mls/hr 02/11/24 10:27 02/11/24 10:40 Keppra IV 02/11/24 10:41 400 mls/hr ONCE ONE Administration Magnesium Sulfate 2 gm in 50 mls @ 25 mls/hr 02/11/24 10:31 02/11/24 11:08 Magnesium Sulfate/H2o IV 02/11/24 12:30 25 mls/hr ONCE ONE Administration Lorazepam 2 mg 02/11/24 10:25 02/11/24 10:34 Lorazepam 2 Mg/Ml Vial IVPUSH 02/11/24 10:26 2 mg ONCE ONE Administration Phenobarbital Sodium 216 mg 02/11/24 10:45 02/11/24 11:09 Phenobarbital Sodium 130 Mg/Ml Im Once IM 02/11/24 10:46 216 mg ONCE ONE Administration Medical Decision Making Medical Decision Making [facility] Narrative: 43 yo female with PMH of substance use disorder, anxiety, unclear of seizure disorder started on keppra 500mg BID from December admission but has not been taking it, HLD, anxiety, alcoholic hepatitis and alcohol abuse here with c/o walking to the store this AM she was found outside with blood on her mouth and confusion. She notes she had another seizure. At this time given her presentation concern for seizure and head trauma. I have ordered on arrival CT head/cspine for trauma, IVF x 2L, empiric thiamine/magnesium, EKG, IV ativan and start on phenobarb given her lack of keppra use that is also ordered. She will need admission. Differential Diagnosis Differential Diagnoses: The differential diagnosis associated with the presentation includes lyte abnormality, head injury, ETOH withdrawal seizure, seizure Admission/Observation Consideration of admission/observation: Escalation of care including admission/observation considered admit for seizure monitoring Consult Healthcare Provider Management of the patient was discussed with: Hospitalist (will admit) Lab Data [facility] Lab Attestation statement: I reviewed the patient's lab results. 02/11/24 10:16 02/11/24 10:16 Labs: Lab Results 02/11/24 Range/Units 10:16 WBC 13.3 H (4.8-10.8) X10*3/uL RBC 4.12 L (4.20-5.50) X10*6/uL Hgb 13.2 (12.0-16.0) g/dl Hct 37.0 (37.0-47.0) % MCV 89.8 (80.0-98.0) fL MCH 32.0 (27.0-33.0) pg MCHC 35.7 H (31.0-35.0) g/dl RDW 14.4 (11.0-16.0) % Plt Count 81 L D (160-400) X10*3/uL MPV 9.0 L (9.4-12.3) fL Immature Gran % (Auto) 0.4 (0.0-0.4) % Neut % (Auto) 81.9 H (45-73) % Lymph % (Auto) 8.5 L (20-40) % [place] % (Auto) 8.1 (2-11) % Eos % (Auto) 0.4 (0-4) % Baso % (Auto) 0.7 (0-2) % Lymph # (Auto) 1.1 L (1.2-4.9) X10*3/uL [place] # (Auto) 1.1 (0.1-1.2) X10*3/uL Eos # (Auto) 0.1 (0.0-0.4) X10*3/uL Baso # (Auto) 0.1 (0.0-0.2) X10*3/uL Abs Immat Gran (auto) 0.05 H (0.00-0.03) X10*3/uL Absolute Neuts (auto) 10.9 H (2.0-8.3) x10*3/uL Absolute Nucleated RBC 0.000 (0.0-0.012) X10*3/uL Nucleated RBC % (auto) 0.0 (0.0-0.2) /100WBC Sodium 135 (135-145) mmol/L Potassium 3.8 (3.3-5.1) mmol/L Chloride 94 L (96-108) mmol/L Carbon Dioxide 27 (22-29) mmol/L Anion Gap 18 (12-20) BUN 7 L (9-16) mg/dL Creatinine 0.78 (0.5-1.4) mg/dL Estim Creat Clear Calc 68.5 Estimated GFR > 60 Random Glucose 104 (60-115) mg/dL Calcium 10.1 (8.4-10.2) mg/dL Magnesium 1.3 L* (1.6-2.6) mg/dL Total Bilirubin 1.3 H (0.0-1.0) mg/dL AST 117 H (5-31) U/L ALT 42 H (0-31) U/L Alkaline Phosphatase 145 H (39-117) U/L Total Creatine Kinase 136 (26-140) U/L Total Protein 8.3 H (6.5-8.0) g/dL Albumin 4.8 (3.5-5.0) g/dL Beta HCG, Quant < 2 mIU/mL Ethyl Alcohol < 10 mg/dL Independent Interpretation I performed an independent interpretation of an: EKG and CT Scan (no trauma) Interpretation: Rate: 104 Rhythm: sinus tach [place]: normal Normal P waves. Normal JEMIMA. Normal QRS complex. ST T wave : normal no ZAFAR qTC: 457 prior studies: no acute ischemia The study has been interpreted contemporaneously by me. . Radiology Impression Discussion of test interpretation with radiology: I have reviewed the radiologist's reading. Critical Care Time Critical Care Time Critical Care Time: Yes Total Critical Care Time: 45 Attestation: IV magnesium, IV ativan, phenobarb, admission, repeat assessments I attest to this time spent taking care of the patient Discharge Plan Discharge Clinical Impression: Elevated LFTs, Hypomagnesemia Alcohol withdrawal seizure Qualifiers: Complication of substance-induced condition: uncomplicated Qualified Code(s): F10.930 - Alcohol use, unspecified with withdrawal, uncomplicated Patient Disposition: Admitted As Inpatient Print Language: Guatemalan
--- NOTE | 2024-02-11 10:47 | PC.NURSE ---
Pt ambulatory to bed 14. tremor noted. able to recall that she had sz while outside this am. was not in the cold for long. last ETOH was last night aprox 7p. Smells of etoh at this time. No keppra or hydroxysine in [address] onmonitor. aware of plan of care. wants detox.. no SI/HI
[2024-02-11 10:48] LABS: Anion Gap 18 (12-20)
[2024-02-11 10:54] LABS: Alanine Aminotransferase 42 U/L (0-31); Albumin Level 4.8 g/dL (3.5-5.0); Alkaline Phosphatase 145 U/L (39-117); Aspartate Amino Transferase 117 U/L (5-31); Bilirubin Total 1.3 mg/dL (0.0-1.0); Blood Urea Nitrogen 7 mg/dL (9-16); Calcium 10.1 mg/dL (8.4-10.2); Carbon Dioxide 27 mmol/L (22-29); Chloride 94 mmol/L (96-108); Creatinine Clr Calc Pharmacy 68.5; Estimated Glomerular Filt Rate > 60; Ethanol < 10 mg/dL; Glucose Random 104 mg/dL (60-115); HCG Quantitative < 2 mIU/mL; Magnesium 1.3 mg/dL (1.6-2.6); Potassium 3.8 mmol/L (3.3-5.1); Sodium 135 mmol/L (135-145); Total Protein 8.3 g/dL (6.5-8.0)
[2024-02-11] MEDS: Magnesium Sulfate/H2O 2 GM/50 ML PIGGYBACK IV (11:08)
[2024-02-11] MEDS: PHENobarbitaL sodium 130 MG/ML IM ONCE 216 MG IM (11:09)
[2024-02-11] MEDS: Thiamine HCL 200 MG in 0.9 % Sodium Chloride 100 ML 204 MG IV (12:21)
--- NOTE | 2024-02-11 12:24 | PC.NURSE ---
Pt sleeping. easily aroused to light touch. ST on monitor. skin PWD> CIWA scale improving.
--- NOTE | 2024-02-11 14:00 | PHA.MEDREC ---
Addendum entered by Chantell Miranda RPh 02/11/24 14:19: Reviewed by [facility]. Removed all medications in home med list (all the following have claims): - Suboxone 8/2mg 1 film daily - clonidine 0.1mg q4h prn hypertension - cyclobenzaprine 5 mg TID prn muscle spasms - hydroxyzine 25 mg q4h prn anxiety - trazodone 100mg HS Original Note: Pharmacy Consult ? Medication Reconciliation Pharmacy has completed the medication reconciliation. Spoke to patient to confirm med list. Patient states she is not on any Medications. Patient states she has stopped taking all her medication.
[2024-02-11] MEDS: PHENobarbitaL sodium 130 MG/ML VIAL IM Q3Hx2 160 MG IM ×2 (14:39→17:35)
--- NOTE | 2024-02-11 16:02 | PM.IMHP ---
History of Present Illness Date of Service: 02/11/24 Attending physician on admission: Dhruv Nunez Chief Complaint: alcohol withdrawal and med noncomplance seizures Hpi:43-year-old female with a past medical history significant for substance use disorder, anxiety, HLD, anxiety, unclear of seizure disorder started on keppra 500mg BID from December admission but has not been taking it, HLD, anxiety, alcohol abuse here with c/o last drink last night who was found outside by family with blood from mouth and confused. She reports her tongue hurts and had seizure compliant with possible tongue bite. She was noncompliant with Keppra, on top of that she also has alcohol use-she says that she uses 5 nips of vodka every day. Except from some tongue pain she denies complaint of chest pain or shortness of breath or abdominal pain or fever or chills or nausea or vomiting or cough or weakness or numbness or urinary c/o. labs imaging ekg reviewed: wbc 13.3 Has hypomagnesemia of 1.3 CTA head: 1. No acute intracranial abnormality. No significant interval change. 2. Stable chronic findings. ct neck: 1. No CT evidence of acute cervical spine fracture or injury. 2. Mild degenerative changes most significant C5-6 ekg:sinus tachy @104 /min Review of Systems Review of Systems: Yes all other systems are reviewed and are negative [facility] Medical History Low vitamin D level Encounter to establish care Ankle syndesmosis disruption Bimalleolar fracture of left ankle Sinus tachycardia Unilateral agenesis of kidney Hepatic steatosis Melanoma Skin cancer Seizures Family History Mother Heart attack Father No problems noted. Surgical History Status post ORIF of fracture of ankle Hx of section Social History Household Members: None Housing: Apartment Do you presently have visiting nurse or other home services: No Alcohol intake: current Alcohol intake frequency: 3 or more drinks per day Alcohol type: hard liquor Patient Tobacco Use Status: Current everyday Tobacco user Tobacco use type: Cigarette Cigarette Packs Per Day: 10 Cigarettes Per Day: 2 Years Smoked: 15 Smoked in Last 30 Days: Yes Use of substances other than those prescribed or required for medical reasons: Yes Substance Use Type: Marijuana Advance Directives: No Advance Directives Information Provided: Yes Do you have a plan to hurt others: No Plan Patient : No service: No Current occupational status: disabled 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 Cognitive needs: No Hearing needs: No Vision needs: No Meds Allergies Allergy/AdvReac Type Severity Reaction Status Date / Time acetaminophen [From TYLENOL] Allergy Severe ANAPHYLAXIS Verified 02/11/24 08:54 Penicillins [PENICILLINS] Allergy Severe HIVES Verified 02/11/24 08:54 Active Medications: Current Medications Acetaminophen (Acetaminophen 325 Mg Tablet) 650 mg PO Q6H PRN PRN Reason: Pain, Mild (Pain Scale 1-3), fever or headache Calcium Carbonate (Calcium Carbonate 750 Mg Tab.Chew) 750 mg PO Q4H PRN PRN Reason: Heartburn Clonidine HCl (Clonidine Hcl 0.1 Mg Tablet) 0.1 mg PO ONCE [facility]; Protocol Folic Acid (Folic Acid 1 Mg Tablet) 1 mg PO DAILY [facility] Magnesium Hydroxide (Milk Of Magnesia 30 Ml Oral.Susp) 30 ml PO DAILY PRN PRN Reason: Constipation Melatonin (Melatonin 3 Mg Tablet) 6 mg PO BEDTIME PRN PRN Reason: Insomnia Omeprazole (Omeprazole 20 Mg Capsule.Dr) 20 mg PO DAILY@0630 [facility] Pharmacy Consult (Consult Rx Etoh Phenob Im/Po) 1 each MISCELLANE ONCE PRN; Protocol PRN Reason: Consult order Phenobarbital (Phenobarbital 30 Mg Tablet) 30 mg PO BID [facility] Stop: 02/13/24 09:01 Phenobarbital (Phenobarbital 15 Mg Tablet) 15 mg PO BID [facility] Stop: 02/15/24 09:01 Phenobarbital (Phenobarbital 15 Mg Tablet) 15 mg PO BEDTIME [facility] Stop: 02/16/24 21:01 Phenobarbital Sodium (Phenobarbital Sodium 130 Mg/Ml Vial Im Q3hx2) 160 mg IM Q3H [facility] Stop: 02/11/24 17:01 Last Admin: 02/11/24 14:39 Dose: 160 mg Sodium Chloride (0.9 % Sodium Chloride Flush 3 Ml Syringe) 3 ml IVFLUSH QSHIFT [facility] Thiamine HCl (Thiamine Hcl 100 Mg Tablet) 100 mg PO DAILY [facility] Home Medications ?Medication ?Instructions ?Recorded ?Confirmed ?Last Taken ?Type No Known Home Meds 02/11/24 02/11/24 Unknown History Physical Exam Vital Signs and Narrative: Vital Signs: Last Vital Signs Temp 97.9 F 02/11/24 08:52 Pulse 105 H 02/11/24 14:15 Resp 16 02/11/24 14:15 BP 142/100 H 02/11/24 14:15 Pulse Ox 99 02/11/24 14:15 O2 Del Method Room Air 02/11/24 14:15 BMI result Body Mass Index 24.2 Appearance: Alert.? Oriented X3.? not in distress.? Eyes: Pupils equal, round and reactive to light.? Sclera nonicteric.? Mouth: lip bleeding/dry blood, ? tongue bite cvs: rrr(mild tachy),[id number]. res: clear to auscultation ,no rhonchii or wheezing abd: no rebound or guarding ,nt, bs present. ext pulses present , no cyanosis . neuro: axo3 , nonfocal. Results Labs 02/11/24 10:16 02/11/24 10:16 Labs: Laboratory Results - last 24 hr 02/11/24 10:16 MCV 89.8 MCH 32.0 MCHC 35.7 H RDW 14.4 Plt Count 81 L D MPV 9.0 L Immature Gran % (Auto) 0.4 Neut % (Auto) 81.9 H Lymph % (Auto) 8.5 L Vance % (Auto) 8.1 Eos % (Auto) 0.4 Baso % (Auto) 0.7 Lymph # (Auto) 1.1 L Vance # (Auto) 1.1 Eos # (Auto) 0.1 Baso # (Auto) 0.1 Abs Immat Gran (auto) 0.05 H Absolute Neuts (auto) 10.9 H Absolute Nucleated RBC 0.000 Nucleated RBC % (auto) 0.0 Anion Gap 18 Estim Creat Clear Calc 68.5 Estimated GFR > 60 Random Glucose 104 Calcium 10.1 Magnesium 1.3 L* Total Bilirubin 1.3 H AST 117 H ALT 42 H Alkaline Phosphatase 145 H Total Creatine Kinase 136 Total Protein 8.3 H Albumin 4.8 Beta HCG, Quant < 2 Ethyl Alcohol < 10 Imaging Radiologist's Impressions: Impressions Cervical Spine CT 02/11/24 10:31 IMPRESSION: 1. No CT evidence of acute cervical spine fracture or injury. 2. Mild degenerative changes most significant C5-6. Electronically signed by: Manfred Chau MD 02/11/2024 01:04 PM EST RP Head CT 02/11/24 10:58 IMPRESSION: 1. No acute intracranial abnormality. No significant interval change. 2. Stable chronic findings. Electronically signed by: Manfred Chau MD 02/11/2024 12:59 PM EST RP Assessment and Plan (1) Hypomagnesemia: Status: Acute (2) Elevated LFTs: Status: Acute (3) Alcohol withdrawal seizure: Qualifiers: Complication of substance-induced condition: uncomplicated Qualified Code(s): F10.930 - Alcohol use, unspecified with withdrawal, uncomplicated; R56.9 - Unspecified convulsions Status: Acute Plan 43-year-old female with a past medical history significant for substance use disorder, anxiety, HLD, anxiety, unclear of seizure disorder started on keppra 500mg BID from December admission but has not been taking it, HLD, anxiety, alcohol abuse here with c/o alcohol withdrawals, electrolytic abnormalities, possible seizure due to noncompliance with meds. Seizure? Unclear etiology Last seen by Neurology December given Keppra but patient was not taking it, also recommended EEG? Unclear if it was done Will restart Keppra, eeg neurology eval. Alcohol withdrawal: Mild elevated LFTs possible secondary to alcohol, monitor LFTs closely, if continued to trend up then may need further workup. ciwa scale started on phenobarbital protocol, thiamine ,folic acid Hypomagnesemia: Repleted, monitor electrolytes. hx VICENTE urine tox not yet done addiction med consult as above thrombocytopenia -? related to liver dis /alcohol use moniter cbc dvt prophylax: mech devices sec to thrombocytopenia. Patient will benefit from 2 midnight stay considering seizure with alcohol withdrawal, electrolyte abnormalities, monitoring LFTs as well as CIWA and tele . Above management discussed with the patient in detail length-she understand and in agreement with the above plan, time spent 70 minute. Quality Stroke Does the patient have a stroke diagnosis?: No VTE Prior VTE?: No VTE Risk Level:: Medical - moderate - high VTE Device Contraindication: N/A - Device Ordered VTE Drug Contraindication: N/A - Med Ordered
[2024-02-11] MEDS: Thiamine HCL 100 MG TABLET PO (16:14)
[2024-02-11] MEDS: 0.9 % Sodium Chloride Flush 3 ML SYRINGE IVFLUSH ×2 (16:14→23:55)
[2024-02-11] MEDS: Folic Acid 1 MG TABLET PO (16:14)
[2024-02-11] MEDS: levETIRAcetam 500 MG TABLET PO (20:03)
[2024-02-11] MEDS: PHENobarbitaL 30 MG TABLET PO (20:03)
[2024-02-12] VITALS: BP 161/103; PULSE 92; RESP 20; TEMP 36.7; O2SAT 99
[2024-02-12 00:59] VITALS: BMI 25.9
[2024-02-12 01:17] LABS: Amphetamine Screen Urine Not Detected (Not Detect); Barbiturates, Urine POSITIVE (Not Detect); Benzodiazepines Screen Urine Not Detected (Not Detect); Buprenorphine Scr Not Detected (Not Detect); Cannabinoid Screen Urine Not Detected (Not Detect); Cocaine Screen Urine Not Detected (Not Detect); Fentanyl, urine Not Detected (Not Detect); Methadone Screen, Urine Not Detected (Not Detect); Opiate Screen Urine Not Detected (Not Detect); Oxycodone Screen Urine Not Detected (Not Detect); Phencyclidine Screen Urine Not Detected (Not Detect)
--- NOTE | 2024-02-12 02:08 | PC.NURSE ---
Patient sleepy tonight, prompted several times to get up to use the bathroom but patient declined. Bladder scanned past midnight for 714. Got patient up to br, very unsteady on her feet, high falls risk. She had her pants/jeans on and the bed sheet was wet from urine. She voided 350ml and urine tox collected. Post void residual was 273ml. Will continue to monitor urine output. Patient declined to take her jeans off, will encourage her to do so. Patient scoring low on CIWA but didnt know what month it was but knew the year on the second try. She started to state 19... but then stated 2023. She states that its coming back and it takes a little while. Bed alarm on for safety.
[2024-02-12 04:00] VITALS: BP 158/116; PULSE 91; RESP 16; TEMP 37.3; O2SAT 99
[2024-02-12] MEDS: Omeprazole 20 MG CAPSULE.DR PO (05:43)
[2024-02-12 07:10] LABS: Alanine Aminotransferase 33 U/L (0-31); Alkaline Phosphatase 122 U/L (39-117); Anion Gap 13 (12-20); Aspartate Amino Transferase 104 U/L (5-31); Bilirubin Total 1.2 mg/dL (0.0-1.0); Blood Urea Nitrogen 4 mg/dL (9-16); Calcium 9.3 mg/dL (8.4-10.2); Carbon Dioxide 26 mmol/L (22-29); Chloride 102 mmol/L (96-108); Estimated Glomerular Filt Rate > 60; Glucose Random 79 mg/dL (60-115); Potassium 3.6 mmol/L (3.3-5.1); Sodium 137 mmol/L (135-145)
[2024-02-12 07:13] LABS: Hematocrit 35.1 % (37.0-47.0); Hemoglobin 12.4 g/dl (12.0-16.0); Mean Corpuscular HGB Conc 35.3 g/dl (31.0-35.0); Mean Corpuscular Volume 90.5 fL (80.0-98.0); Mean Platelet Volume 10.6 fL (9.4-12.3); Red Blood Count 3.88 X10*6/uL (4.20-5.50); Red Cell Distribution Width 14.5 % (11.0-16.0); White Blood Count 5.3 X10*3/uL (4.8-10.8)
[2024-02-12 07:17] LABS: Platelet Count 62 X10*3/uL (160-400)
[2024-02-12 07:42] VITALS: BP 170/100; PULSE 98; RESP 16; TEMP 36.6; O2SAT 98
[2024-02-12] MEDS: 0.9 % Sodium Chloride Flush 3 ML SYRINGE IVFLUSH (08:23)
[2024-02-12] MEDS: Thiamine HCL 100 MG TABLET PO (08:23)
[2024-02-12] MEDS: Folic Acid 1 MG TABLET PO (08:23)
[2024-02-12] MEDS: Nicotine 14 MG PATCH.TD24 TRANSDERMA (08:23)
[2024-02-12] MEDS: levETIRAcetam 500 MG TABLET PO (08:23)
[2024-02-12] MEDS: PHENobarbitaL 30 MG TABLET PO (08:23)
[2024-02-12 08:54] LABS: Magnesium 1.7 mg/dL (1.6-2.6)
[2024-02-12 09:00] VITALS: BP 159/110
--- NOTE | 2024-02-12 09:41 | PM.DS ---
DS: Providers Provider Date of Service: 02/12/24 Date of admission: 02/11/24 15:00 Date of discharge: 02/12/24 Primary care physician: Unknown Physician Consults: 02/11/24 16:31 Consult to Neurology Routine Consulting Provider: [facility] Reason for consultation: ?seizure Has provider been notified: No 02/11/24 16:38 Addiction Medicine Routine Consulting Provider: Addiction [facility] Reason for consultation: alcohol use Has provider been notified: No DS: Diagnosis Discharge Diagnosis (1) Hypomagnesemia: Status: Acute (2) Elevated LFTs: Status: Acute (3) Alcohol withdrawal seizure: Status: Acute DS: Summary Hospital Course Hospital Course: admission hpi Chief Complaint: alcohol withdrawal and med noncomplance seizures Hpi:43-year-old female with a past medical history significant for substance use disorder, anxiety, HLD, anxiety, unclear of seizure disorder started on keppra 500mg BID from December admission but has not been taking it, HLD, anxiety, alcohol abuse here with c/o last drink last night who was found outside by family with blood from mouth and confused. She reports her tongue hurts and had seizure compliant with possible tongue bite. She was noncompliant with Keppra, on top of that she also has alcohol use-she says that she uses 5 nips of vodka every day. Except from some tongue pain she denies complaint of chest pain or shortness of breath or abdominal pain or fever or chills or nausea or vomiting or cough or weakness or numbness or urinary c/o. labs imaging ekg reviewed: wbc 13.3 Has hypomagnesemia of 1.3 CTA head: 1. No acute intracranial abnormality. No significant interval change. 2. Stable chronic findings. ct neck: 1. No CT evidence of acute cervical spine fracture or injury. 2. Mild degenerative changes most significant C5-6 ekg:sinus tachy @104 /min Hospital course: The patient presented with what appeared to be a seizure in the setting of non-compliance with her medication (Keppra) and alcohol dependency. Upon admission, she was restarted on Keppra and has not experienced any further seizures. Keppra compliance has been strongly emphasized. Alcohol Withdrawal: The patient admitted to heavy alcohol consumption. Phenobarbital was initiated to prevent withdrawal symptoms. It remains uncertain whether the seizure was due to alcohol withdrawal or an underlying seizure disorder. Currently, she exhibits no signs of alcohol withdrawal. Abstinence from alcohol has been strongly advised, and addiction medicine has provided her with resources to support this goal. Hypomagnesemia: Repleted and corrected. Thrombocytopenia: Possibly related to liver disease and/or alcohol use. Monitor CBC closely. Dispo: Pt made rapid than expected recovery and additionally highly desired to go home and therefore was discharged to home. Time Attestation Discharge Coordination Time (in mins): 40 Quality: Safe Use of Opioids Does Pt have an Active Cancer Diagnosis on the Problem List?: No Quality: Stroke Does the patient have a stroke diagnosis?: No Physical Exam Vital Signs: Vital Signs: Last Vital Signs Temp 97.8 F 02/12/24 07:42 Pulse 98 02/12/24 07:42 Resp 16 02/12/24 07:42 BP 159/110 H 02/12/24 09:00 Pulse Ox 98 02/12/24 07:42 O2 Del Method Room Air 02/12/24 07:42 BMI result Body Mass Index 25.9 General: AO X 3, no acute distress Resp: CTA bilateral CVS: S1,S2,RRR GI: +BS, NT, no distention Skin: No rash Neuro: motor grossly intact Psych: appropriate affect DS: Data Data Completed and Pending Completed studies during hospitalization [Text1]: Procedures Detoxification Services for Substance Abuse Treatment (01/15/24) Labs on day of discharge: Laboratory Results - last 24 hr 02/11/24 02/12/24 02/12/24 10:16 00:48 06:35 WBC 13.3 H 5.3 RBC 4.12 L 3.88 L Hgb 13.2 12.4 Hct 37.0 35.1 L MCV 89.8 90.5 MCH 32.0 32.0 MCHC 35.7 H 35.3 H RDW 14.4 14.5 Plt Count 81 L D 62 L MPV 9.0 L 10.6 Immature Gran % (Auto) 0.4 Neut % (Auto) 81.9 H Lymph % (Auto) 8.5 L Cochran % (Auto) 8.1 Eos % (Auto) 0.4 Baso % (Auto) 0.7 Lymph # (Auto) 1.1 L Cochran # (Auto) 1.1 Eos # (Auto) 0.1 Baso # (Auto) 0.1 Abs Immat Gran (auto) 0.05 H Absolute Neuts (auto) 10.9 H Absolute Nucleated RBC 0.000 0.000 Nucleated RBC % (auto) 0.0 0.0 Sodium 135 137 Potassium 3.8 3.6 Chloride 94 L 102 Carbon Dioxide 27 26 Anion Gap 18 13 BUN 7 L 4 L Creatinine 0.78 0.68 Estim Creat Clear Calc 68.5 81.0 Estimated GFR > 60 > 60 Random Glucose 104 79 Calcium 10.1 9.3 D Magnesium 1.3 L* 1.7 Total Bilirubin 1.3 H 1.2 H AST 117 H 104 H ALT 42 H 33 H Alkaline Phosphatase 145 H 122 H Total Creatine Kinase 136 Total Protein 8.3 H 7.0 Albumin 4.8 4.0 Beta HCG, Quant < 2 Urine Opiates Screen Not Detected Ur Buprenorphine Scrn Not Detected Ur Oxycodone Screen Not Detected Urine Methadone Screen Not Detected Urine Fentanyl Screen Not Detected Ur Barbiturates Screen POSITIVE H Ur Phencyclidine Scrn Not Detected Ur Amphetamines Screen Not Detected U Benzodiazepines Scrn Not Detected Urine Cocaine Screen Not Detected U Marijuana (THC) Screen Not Detected Ethyl Alcohol < 10 Discharge Plan Discharge Anticipated Discharge Date/Time: 02/12/24 09:58 Patient Disposition: Home, Self-Care Discharge Diagnosis: Seizure, alcohol dependence Referrals: Physician,Unknown J [Primary Care Provider] - 1 Week Discharge Medications: New levetiracetam 500 mg Tablet 500 mg PO BID Qty: 60 0RF Discharge Orders: Discharge Order (Routine); Ordered 02/12/24 Ordered By: Holger Aguilar Diet: Advance to usual diet Activity on Discharge: As tolerated Stand Alone Forms: Patient Portal Discharge page Print Language: Welsh Care Plan Goals: seizure prevention, abstinence Health Concerns: alohol dependence seizure Plan of Treatment: take keppra as directed No driving for at least 6 months seizure free, follow up with the neurologist. avoid alcohol follow through the resources given to you Assessment: see above Discharge Date/Time: 02/12/24 13:40
[2024-02-12 11:16] VITALS: TEMP 36.4; O2SAT 100
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
--- NOTE | 2024-02-12 11:27 | MHC.CM.PN ---
IMM 02/12/24, Pt lives with her children, she does not have any home health services. PCP is Nory Givens, HCP discussed, she declined to complete form. Pt will need C shuttle to get home. DCP: home, self care. CM to follow for DC needs.
--- NOTE | 2024-02-12 13:13 | MHC.CM.PN ---
Pt has been medically cleared for DC, she will go home via [facility] shuttle, plan is; self care.
== END 2024-02-12 13:40 | disposition home or self-care (01) | DRG 101 ==
LOC: HO.ED 13:13 → HO.EDOVER 15:05 → HO.IMC 15:32
PROVIDERS: Admitting Provider Internal Medicine; Emergency Provider Emergency Medicine; PCP Nurse Practitioner Family; Visit Provider Internal Medicine
DX: G40.909 Epilepsy, unspecified, not intractable, without status epilepticus (principal); F10.239 Alcohol dependence with withdrawal, unspecified; Q60.0 Renal agenesis, unilateral; T42.6X6A Underdosing of other antiepileptic and sedative-hypnotic drugs, initial encounter; E83.42 Hypomagnesemia; R56.9 Unspecified convulsions; D69.59 Other secondary thrombocytopenia; Z87.891 Personal history of nicotine dependence; Z79.899 Other long term (current) drug therapy
CPT/HCPCS: 36415; 70450; 72125; 80053; 80307; 82550; 83735; 84702; 85025; 85027; 93005; 99285; J1953; J2060; J2560; J3411; J3475

== ENCOUNTER → 2024-02-11 10:26 | Outpatient (BNV) | payer MEDICARE, MEDICAID, SELFPAY | PROVIDERS: Emergency Provider Emergency Medicine; Visit Provider Internal Medicine | DX: R00.0 Tachycardia, unspecified (principal) | CPT/HCPCS: 93010 ==

== ENCOUNTER → 2024-02-11 10:31 | Outpatient (BNV) | payer MEDICARE, MEDICAID, SELFPAY | PROVIDERS: Emergency Provider Emergency Medicine; Visit Provider Radiology Diagnostic Radiology | DX: S09.90XA Unspecified injury of head, initial encounter (principal); S19.9XXA Unspecified injury of neck, initial encounter | CPT/HCPCS: 70450; 72125 ==

== ENCOUNTER → 2024-02-11 15:00 | Outpatient (BNV) | payer MEDICARE, MEDICAID, SELFPAY | PROVIDERS: Admitting Provider Internal Medicine; Emergency Provider Emergency Medicine; Visit Provider Internal Medicine | DX: E83.42 Hypomagnesemia (principal); R79.89 Other specified abnormal findings of blood chemistry; F10.930 Alcohol use, unspecified with withdrawal, uncomplicated; R56.9 Unspecified convulsions | CPT/HCPCS: 99222; 99239 ==

== ENCOUNTER → 2024-02-11 15:00 | Outpatient (BNV) | payer MEDICARE, MEDICAID, SELFPAY | PROVIDERS: Admitting Provider Internal Medicine; Emergency Provider Emergency Medicine; Visit Provider Nurse Practitioner Psychiatric/Mental Health | DX: F10.20 Alcohol dependence, uncomplicated (principal) | CPT/HCPCS: 99222 ==

== ENCOUNTER 2025-02-09 14:02 | Outpatient (AMB) | payer MEDICARE, MEDICAID, SELFPAY ==
--- NOTE | 2025-02-09 14:41 | A.OFFPC_ITS ---
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 Bunker Worker Required: No Accompanied by: Self / Same As Patient Allergies acetaminophen (From TYLENOL) Allergy (Severe, Verified 02/09/25 15:19) ANAPHYLAXIS Penicillins (PENICILLINS) Allergy (Severe, Verified 02/09/25 15:19) HIVES Medication List - Last Reconciled 02/09/25 by Izabela Ross PA-C acamprosate 666 mg PO TID amlodipine 5 mg PO DAILY buprenorphine-naloxone 4-1 mg 1 film sublingual DAILY buprenorphine-naloxone 8-2 mg 1 film sublingual DAILY folic acid 1 mg PO DAILY hydroxyzine HCl 25 mg PO Q8H PRN levetiracetam 500 mg PO BID ondansetron 4 mg PO Q8H PRN thiamine HCl (vitamin B1) 100 mg PO DAILY Tobacco use date assessed: 02/09/25 Dental Screening Dental Screen Date: 02/09/25 HPI Annual PE /González Saykin HPI Details 44 year old female with PMH of AUD, 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 Presenting for follow-up after multiple hospitalizations and for management of chronic conditions. She reports a history of seizures and is currently on medication for them since her recent hospitalization 3 weeks ago but is unsure of the name. She is no longer taking Keppra. Her last seizure occurred on the day she was admitted to the hospital, approximately two to three and a half weeks ago, and she experienced five or six seizures [id number]. She does not currently have a neurologist. The patient was recently discharged from [facility] about a week ago for back issues, uncontrolled seizures, and labile blood pressure. She has a history of a back fracture from years ago and believes she re-broke it during a recent seizure, which has worsened her chronic back pain. Her medical history is also significant for depression, anxiety, bipolar disorder, PTSD, hypercholesterolemia, history of hepatitis, and insomnia. She is not currently on medication for depression or anxiety but was previously prescribed clonidine and hydroxyzine for anxiety, which was effective. She reports her anxiety is worse in the morning or at night. She is currently trying to find a psychiatrist. pap smear: referral placed mammogram: referral placed colonoscopy: referral placed vaccines: UTD [facility] Medical History Colitis Hepatitis C Transaminitis Low vitamin D level Encounter to establish care Ankle syndesmosis disruption Bimalleolar fracture of left ankle Sinus tachycardia Unilateral agenesis of kidney Hepatic steatosis Melanoma Skin cancer Seizures Surgical History Status post ORIF of fracture of ankle Hx of section Family History Mother Heart attack Father No problems noted. 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 Miah Hughes, Jyoti Blanco, Willis Acosta and colleagues, with an educational ángela from [employer]. Review of Systems Const Denies body aches, Denies chills, Denies fever(s), Denies headache(s) and Denies poor appetite Eyes Reports no additional complaints ENT Denies dizziness and Denies headache(s) Card Denies chest pain, Denies syncope, Denies lightheadedness and Denies dyspnea Resp Denies cough and Denies dyspnea GI Denies abdominal pain, Denies nausea and Denies vomiting Reports no additional complaints Musc Denies abnormal gait and Reports back pain Skin/Breast Reports system reviewed and no additional complaints, except as documented Neuro Denies abnormal gait, Denies dizziness, Denies syncope and Denies headache(s) Psych Reports no additional complaints Physical exam (Primary Care) Vital Signs: Last Vital Signs Temp 96.9 F 02/09/25 15:04 Pulse 82 02/09/25 15:04 BP 112/68 02/09/25 15:04 Pulse Ox 99 02/09/25 15:04 Oxygen Delivery Method Room Air 02/09/25 15:04 BMI result Body Mass Index 20.6 Tobacco/Smoking Status: Tobacco use Status Tobacco use date assessed 02/09/25 02/09/25 15:12 Patient Tobacco Use Status Former Tobacco user 02/09/25 14:42 Tobacco use type Cigarette 02/09/25 14:42 e-Cigarette/Vaping Use Currently Using 02/09/25 14:42 Thrive Assessment: Date of Thrive Assessment Date Thrive assessed 02/12/24 02/09/25 14:42 Const General: cooperative, healthy appearing, comfortable and no acute distress Orientation/consciousness: patient oriented x3 HENMT Head: Yes normocephalic Ears: hearing grossly normal bilaterally General nose exam: Normal external nose present Eyes General: appearance normal, both eyes and all related structures Conjunctivae: conjunctivae normal Neck Neck: Yes full ROM and Yes no lymphadenopathy Resp Effort & Inspection: normal respiratory effort Auscultation: clear to auscultation bilaterally, no crackles, no rales, no rhonchi and no wheezes Cardio Rate: regular rate Rhythm: regular rhythm Skin General skin exam: no rashes or lesions noted Neuro General: patient oriented x3 Gait exam (Neuro): Normal gait present Extrem General: Yes normal to inspection, Yes full ROM and No edema Psych Affect: normal affect Attitude: cooperative Insight: Good insight present (Psych) Judgement: Good judgement present (Psych) Coding Level of Care Code Est Pt Level 4 (93713) Diagnoses Depression F32.A Anxiety F41.9 Bipolar 1 disorder F31.9 PTSD (post-traumatic stress disorder) F43.10 History of opioid abuse F11.11 Alcohol use disorder, severe, dependence F10.20 Hyperlipidemia E78.5 Hepatic steatosis K76.0 Seizures R56.9 Insomnia G47.00 Back pain M54.9 Assessment & Plan Assessment & Plan (1) Depression: Code(s): F32.A - Depression, unspecified Category: Medical Plan: The patient screens positive for significant depression and anxiety and is not currently on any medication for these conditions. I will start her on sertraline 50mg, advising her to take half a tablet (25mg) for the first week before increasing to the full dose, to monitor for side effects. I will also refill her hydroxyzine and prescribe clonidine once daily at night for anxiety, while discontinuing amlodipine due to her low blood pressure reading. A referral to psychiatry will be placed. (2) Anxiety: Code(s): F41.9 - Anxiety disorder, unspecified Category: Medical Plan: See above (3) Bipolar 1 disorder: Code(s): F31.9 - Bipolar disorder, unspecified Category: Medical Plan: See above (4) PTSD (post-traumatic stress disorder): Code(s): F43.10 - Post-traumatic stress disorder, unspecified Category: Medical Plan: See above (5) History of opioid abuse: Comment: hx of Percocet use. [place] on Suboxone. remission one year Code(s): F11.11 - Opioid abuse, in remission Category: Medical Plan: Reports being in remission for 1 year declines referral to comprehensive Care Clinic. (6) Alcohol use disorder, severe, dependence: Comment: full remission 3 weeks Code(s): F10.20 - Alcohol dependence, uncomplicated Category: Medical Plan: Patient reports being in remission for 3 weeks. She declines comprehensive Care Clinic referral and declines medical management at this time (7) Hyperlipidemia: Code(s): E78.5 - Hyperlipidemia, unspecified Category: Medical Plan: Ordered for updated blood work. Avoid foods that are high in cholesterol such as red meat, fried foods, eggs and baked goods. (8) Hepatic steatosis: Code(s): K76.0 - Fatty (change of) liver, not elsewhere classified Category: Medical Plan: Healthy diet and regular exercise is encouraged. (9) Seizures: Comment: None for 18 months. Code(s): R56.9 - Unspecified convulsions Category: Medical Plan: The patient has a history of seizures and is not currently on any medication. I will obtain records from her recent hospitalizations at [facility] and [facility] to determine which seizure medication was started. I have placed a referral to a neurologist for ongoing management. (10) Insomnia: Code(s): G47.00 - Insomnia, unspecified Category: Medical Plan: For sleep patient to trial clonidine as she has been on this in the past and does have medications for blood pressure management. Amlodipine was discontinued today and patient use clonidine as needed for sleep. (11) Back pain: Code(s): M54.9 - Dorsalgia, unspecified Category: Medical Plan: The patient reports worsening chronic back pain, which she believes is due to a re-fracture from a recent seizure. For now, I will prescribe a muscle relaxant to be taken at bedtime. A referral will be made to pain management and physical therapy. Gabapentin was also discussed for her back pain. Plan This note was constructed using voice recognition software. While every effort has been made to ensure accuracy and manufacturing engineering manager, still areas may have been included sometimes these areas may affect the content or meeting of the given symptoms. Total time spent caring for the patient today was 30 minutes. This includes time spent before the visit reviewing the chart, time spent during the visit, and time spent after the visit and documentation. Patient was informed and verbally consented to the use of an ambient scribe for clinic note documentation during this visit. Orders: Orders MM tomosynthesis screening BI Today Z12.31 - Encounter for screening mammogram for malignant neoplasm of breast Referrals Neurology Referral R56.9 - Unspecified convulsions Cologuard Test Z12.11 - Encounter for screening for malignant neoplasm of colon PLUMBING HARDWARE ASSEMBLER Referral Z12.4 - Encounter for screening for malignant neoplasm of cervix Psychiatry Referral F31.9 - Bipolar disorder, unspecified, F32.A - Depression, unspecified, F41.9 - Anxiety disorder, unspecified, F43.10 - Post-traumatic stress disorder, unspecified Pain Management Referral M54.9 - Dorsalgia, unspecified Medications: New methocarbamol 750 mg PO BEDTIME 30 tabs 0RF hydroxyzine HCl 25 mg PO Q8H PRN 90 tabs 0RF itch sertraline 50 mg PO DAILY 90 tabs 0RF Changed From clonidine HCl 0.1 mg PO Q4H PRN Hypertension To clonidine HCl 0.1 mg PO DAILY 30 tabs 0RF Discontinued levetiracetam Discontinued Reason: Patient no longer taking 500 mg PO BID 60 tabs 0RF
[2025-02-09 15:04] VITALS: BP 112/68; PULSE 82; TEMP 36.1; O2SAT 99; BMI 20.6
--- OUTSIDE RECORDS SUMMARY | 2025-02-09 20:28 | XMS_ITS | Clinical Summary ---
Author Organization [employer] [facility] Address [address] [place] [address] [address] [place] [address] Care Team Providers Care Deli Worker Name Role Phone Unavailable Primary Care Provider Unavailabl e Allergies Active Allergy Reactions Criticality Noted Date Comments Penicillins 10/03/2024 Other Reaction(s): hives, difficult breathing whole body itcyness Acetaminophen 12/17/2024 Medications No known medications Active Problems No known active problems Encounters Date Type Department Care Team Description 12/17/2024 1:00 PM EDT Office Visit [facility] [address] [place] [address] Dereck Metz DMD Tooth impaction (Primary Dx); Extruded tooth from Last 3 Months Social History Tobacco Use Types Packs/Day Years Used Date Smoking Tobacco: Every Day Cigarettes Smokeless Tobacco: Current Tobacco Cessation:Ready to Q uit: Not Asked; Counseling Given: Not Answered Comments Unknown Sex and Gender Information Value Date Recorded Sex Assigned at Female 12/17/2024 11:40 AM EDT Legal Sex Female 11:35 AM EDT Gender Identity Female 12/17/2024 11:40 AM EDT Sexual Orientation Choose not to disclose 2024 11:40 AM EDT Last Filed Vital Signs Vital Sign Reading Time Taken Comments Blood Pressure 130/80 12/17/2024 12:59 PM EDT Pulse - - Temperature - - Respiratory Rate - - Oxygen Saturation - - Inhaled Oxygen Concentration - - Weight - - Height - - Body Mass Index - - Plan of Treatment Upcoming Encounters Date Type Department Care Team (Late st Contact Info) Description 03/26/2025 10:00 AM EST Office Visit [facility] [address] [place] [address] Bert Bryant DDS [address] [place] [address] Health Maintenance Due Date Last Done Comments CT Colonography 1978 Colonoscopy 1978 Colorectal Cancer Screening 1978 Dental Oral Exam 1978 Dental Prophylaxis 1978 Dental X-Ray: Bitewings 1978 Depression Screening 1978 FIT DNA/Cologuard 1978 FIT 1978 FOBT 1978 HIV Screening 1978 Lipid Panel 1978 SDOH Screening 1978 Sigmoidoscopy 1978 Disability Screening 1978 Alcohol/Substance Use Screening 1990 Family Planning (PISQ) 1993 Hepatitis C Screening 1996 DTaP/Tdap/Td Vaccines (1 - Tdap) 1997 Hepatitis B Vaccines (1 of 3 - 19+ 3-dose series) 1997 Pneumococcal Vaccine: Pediat rics (0 to 5 Years) and At-Risk Patients (6 to 49) Years (1 of 2 - PCV) 1997 Pap Smear 07/18/1999 Cervical Cancer Screening 2008 HPV/Cotest 2008 Mammogram 2018 COVID-19 Vaccine (1 - 2024-2 6 season) 2024 Influenza Vaccine (#1) 2024 Tobacco Screening 12/17/2025 12/17/2024 Dental X-Ray: Full Mouth 12/19/2027 12/17/2024 Zoster Vaccines (1 of 2) 2028 RSV Patients and Pa tients Aged 60 years or older (1 - 1-dose 75+ series) 2053 HIB Vaccines Aged Out No longer eligi ble based on patient's age to complete this topic HPV Vaccines Aged Out No longer eligi ble based on patient's age to complete this topic Hepatitis A Vaccines Aged Out No long er eligible based on patient's age to complete this topic IPV Vaccines Aged Out No longer eligi ble based on patient's age to complete this topic Meningococcal B Vaccine Aged Out No l onger eligible based on patient's age to complete this topic Meningococcal Vaccine Aged Out No francisco j ruthann eligible based on patient's age to complete this topic RSV under 20 months Aged Out No longe r eligible based on patient's age to complete this topic Rotavirus Vaccines Aged Out No longer eligible based on patient's age to complete this topic Procedures Procedure Name Priority Date/Time Associated Diagnosis Comments CASE PRESENTATION, DETAILED AND EXTENSIVE TREATMENT PLANNING Routine 12/17/2024 1:00 PM EDT PANORAMIC RADIOGRAPHIC IMAGE Routine 12/17/2024 1:00 PM EDT PALLIATIVE (EMERGENCY) TREATMENT OF DENTAL PAIN - MINOR PROCEDURE Routine 12/17/2024 1:00 PM EDT from Last 3 Months Insurance D[facility]AL[facility] MEDICAID STAND ADULT
--- OUTSIDE RECORDS SUMMARY | 2025-02-09 20:28 | XMS_ITS | Clinical Summary ---
Author Organization [facility] Address [address] [place] [address] Care Team Providers Care Lead Die Molder Name Role Phone Nory Givens Primary Care Provider [phone] Allergies No known active allergies Medications No known medications Social History Tobacco Use Types Packs/Day Years Used Date Smoking Tobacco: Never Assessed Comments Unknown Sex and Gender Information Value Date Recorded Sex Assigned at Not on file Legal Sex Female 10:32 AM EST Gender Identity Not on file Sexual Orientation Not on file Last Filed Vital Signs Vital Sign Reading Time Taken Comments Blood Pressure 147/85 03/12/2023 10:42 AM EST Pulse 96 03/12/2023 10:42 AM EST Temperature 36.6 C (97.9 F) 03/12/2023 10:42 AM EST Respiratory Rate 18 03/12/2023 10:42 AM EST Oxygen Saturation 99% 03/12/2023 10:42 AM EST Inhaled Oxygen Concentration - - Weight - - Height - - Body Mass Index - - Plan of Treatment Health Maintenance Due Date Last Done Comments Cervical Cancer Screening 1978 Cologuard 1978 Colon Cancer Screening 1978 Colonoscopy 1978 FOBT / Fit Test 1978 HIV Screening 1978 HPV and Pap Smear 1978 Pap Smear 1978 Sigmoidoscopy 1978 Hepatitis B Vaccines (1 of 3 - 19+ 3-dose series) 1997 DTaP,Tdap,and Td Vaccines (1 - Tdap) 2000 Mammogram 2018 Alcohol/Substance Use Screening 02/27/2024 Influenza Vaccine (#1) 2024 COVID-19 Vaccine (1 - 2024-2 6 season) 2024 Pneumococcal Vaccine: Pediat amita (0-5 Years) and At-Risk Patients (6-50 Years) Aged Out No longer eligible b ased on patient's age to complete this topic Insurance [facility] MEDICARE Care Teams Lead Die Molder Relationship Specialty Start Date End Date Nory Givens [address] [place] [address] [place] [address] PCP - General Internal Medicine 03/12/23
--- OUTSIDE RECORDS SUMMARY | 2025-02-09 20:28 | XMS_ITS | Clinical Summary ---
Author Organization [facility] Address [address] [place] [address] Phone Care Team Providers Care Brain Wave Technician Name Role Phone Physician, No Pcp Primary Care Provider Unavaila ble Allergies Active Allergy Reactions Criticality Noted Date Comments Acetaminophen Swelling 12/27/2018 Other Reaction(s): hives, difficult to breath Penicillin 10/03/2024 Other Reaction(s): hives, difficult breathing whole body itcyness Medications levETIRAcetam (KEPPRA) 500 mg tablet Take 1 tablet (500 mg total) by mouth 2 (two) times a day. 60 each 10/05/19 25 Active amLODIPine (NORVASC) 5 mg tablet Take 1 tablet (5 mg total) by mouth 1 (one) time each day. 30 each 10/10/19 25 026 Active folic acid (FOLVITE) 1 mg tablet Take 1 tablet (1 mg total) by mouth 1 (one) time each day. 30 each 01/29/20 25 026 Active hydrOXYzine HCL (ATARAX) 25 mg tablet Take 1 tablet (25 mg total) by mouth every 8 (eight) hours if needed for itching or anxiety for up to 10 days. 30 tablet 01/28/20 25 Active nicotine (NICODERM CQ) 14 mg/[address] 1 patch on the skin 1 (one) time each day. 30 each 01/29/20 25 026 Active thiamine (VITAMIN B-1) 100 mg tablet Take 1 tablet (100 mg total) by mouth 1 (one) time each day. 30 tablet 01/29/20 25 026 Active acamprosate (CAMPRAL) 333 mg EC tablet Take 2 tablets (666 mg total) by mouth 3 (three) times a day. Do not crush, chew, or split. 180 each 01/28/20 25 026 Active naloxone (NARCAN) 4 mg/0.1 mL nasal spray Administer 1 each (4 mg total) into affected nostril(s) if needed for opioid reversal or respiratory depression. Give 4 mg (1 spray) into one nostril. May repeat every 2-3 minutes if needed, alternating nostrils, until medical assistance becomes available. 2 each 11 01/28/20 25 Active cefpodoxime (VANTIN) 200 mg tablet Take 1 tablet (200 mg total) by mouth 2 (two) times a day for 3 days. 6 each 01/28/20 25 025 ondansetron ODT (ZOFRAN-ODT) 4 mg disintegrating tabletIndications: Alcoholism (CMS/HCC V24, CMS/HCC V28) Take 1 tablet (4 mg total) by mouth every 8 (eight) hours if needed for vomiting or nausea for up to 7 days. 20 tablet 01/28/20 25 025 buprenorphine-nalo xone (SUBOXONE) 4-1 mg per [address] film Place 1 film under the tongue 3 (three) times a day for 8 days. After the medication is completely dissolved, take a large sip of water, swish it around teeth and gums, and swallow. Wait at least 1 hour before brushing teeth to avoid damage to your teeth. Max Daily Amount: 3 films 24 each 01/28/20 25 025 Active Problems Problem Noted Date Diagnosed Date Seizure 01/24/2025 Acute pancreatitis 01/24/2025 Acute renal failure (ARF) 01/24/2025 Hypomagnesemia 01/24/2025 Hypokalemia 01/24/2025 Acute cystitis without hematuria 01/24/2025 Thrombocytopenia 01/24/2025 Hepatic steatosis 01/24/2025 Nonadherence to medication 01/24/2025 Back contusion, unspecified laterality, initial encounter 10/08/2024 Pain management 10/06/2024 Crohn's colitis Encounters Date Type Department Care Team Description 01/24/2025 5:48 PM EST - 01/27/2025 2:51 PM EST Hospital Encounter [facility] [address] [place] [address] Vasiliy Ku MD Zaidi, Mansoor Anwer, MD Jones, Christopher, MD Japaridze, Anna, MD Shah, Princy, MD Chronic low back pain without sciatica, unspecified back pain laterality (Primary Dx); Seizure ([facility] V24, [facility] V28); Acute pancreatitis, unspecified complication status, unspecified pancreatitis type; Alcoholism ([facility] V24, [facility] V28); Hypomagnesemia; LESA (acute kidney injury) ([facility] V24); Transaminitis; Hyperbilirubinemia Discharge Disposition: Home or Self Care from Last 3 Months Immunizations Immunization Administration Dates Next Due Td Tetanus diptheria, preser vative free (Tenivac) 7yo and older 01/26/2025(Deferred: Other - order d/c) Tdap Tetanus diptheria acell ular pertussis (Boostrix; Adacel) 7yo and older 01/26/2025 Surgical History Surgery Date Site/Laterality Comments SECTION PROCEDURE: DC DELIVERY ONLY; COMMENT: x 2 ORIF ANKLE FRACTURE Left SKIN CANCER EXCISION Nose Medical History Medical History Date Comments Seizure ([facility] V24, [facility] V28) DX:Seizure ([facility]) PTSD (post-traumatic stress disorder) Anxiety with depression 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 Family History Medical History Relation Name Comments Cervical cancer Father's side Other cancer Maternal Grandmother Heart attack Mother Hypertension Mother Kidney disease Mother Seizures Mother Relation Name Status Comments Father Alive Father's side Maternal Grandmother Mother Social History Tobacco Use Types Packs/Day Years Used Date Smoking Tobacco: Former Cigarettes Smokeless Tobacco: Never Tobacco Cessation:Counseling Given: Not Answered Alcohol Use Standard Drinks/Week Comments Yes 0 (1 standard drink = 0.6 oz pur e alcohol) Interpersonal Safety Answer Date Record ed Physical Abuse Unrecognized value 01/25/2025 Verbal Abuse Unrecognized value 01/25/2025 Comments No Sex and Gender Information Value Date Recorded Sex Assigned at Not on file Legal Sex Female 10:15 PM EST Gender Identity Not on file Sexual Orientation Not on file Last Filed Vital Signs Vital Sign Reading Time Taken Comments Blood Pressure 136/103 01/27/2025 8:43 AM EST Pulse 73 01/27/2025 8:43 AM EST Temperature 36.3 C (97.3 F) 01/27/2025 8:43 AM EST Respiratory Rate 18 01/27/2025 8:43 AM EST Oxygen Saturation 100% 01/27/2025 8:43 AM EST Inhaled Oxygen Concentration - - Weight 59 kg (130 lb) 01/24/2025 5:31 PM EST Height 154.9 cm (5' 1 ) 01/24/2025 5:31 PM EST Body Mass Index 24.56 01/24/2025 5:31 PM EST Plan of Treatment Health Maintenance Due Date Last Done Comments Breast Cancer Screening 1978 Colorectal Cancer Screening: Colonoscopy 1978 Hepatitis A Vaccines (1 of 2 - Risk 2-dose series) 1997 Hepatitis B Vaccines (1 of 3 - 19+ 3-dose series) 1997 Pneumococcal Vaccine: Pediat rics (0 to 5 Years) and At-Risk Patients (6 to 49 Years) (1 of 2 - PCV) 1997 Cervical Cancer Screening: P ap Smear 07/18/1999 Depression Screening 02/27/2024 HIV Screening 10/04/2024 Hepatitis C Screening 10/04/2024 Medicare Annual Wellness Visit 10/04/2024 Social Influencers of Health Screening 10/04/2024 COVID-19 Vaccine (1 - 2024-2 6 season) 2024 Influenza Vaccine (#1) 2024 Cholesterol Screening (Lipid Panel) 10/08/2029 10/08/2024 DTaP,Tdap,and Td Vaccines (2 - Td or Tdap) 01/26/2035 01/26/2025 RSV Immunization Adult Patie nts (1 - 1-dose 75+ series) 2053 HIB Vaccines Aged Out No longer eligi ble based on patient's age to complete this topic HPV Vaccines Aged Out No longer eligi ble based on patient's age to complete this topic IPV Vaccines Aged Out No longer eligi ble based on patient's age to complete this topic MMR Vaccines Aged Out No longer eligi ble based on patient's age to complete this topic Meningococcal ACWY Vaccine Aged Out N o longer eligible based on patient's age to complete this topic Meningococcal B Vaccine Aged Out No l onger eligible based on patient's age to complete this topic RSV Immunization Patients Un denia 20 months Aged Out No longer eligible b ased on patient's age to complete this topic Varicella Vaccines Aged Out No longer eligible based on patient's age to complete this topic Procedures Procedure Name Priority Date/Time Associated Diagnosis Comments MAGNESIUM Routine 01/27/2025 5:39 AM EST BASIC METABOLIC PANEL Routine 01/27/2025 5:39 AM EST COMPLETE BLOOD COUNT Routine 01/27/2025 5:39 AM EST PHOSPHORUS Routine 01/27/2025 5:39 AM EST CBC WITH AUTO DIFFERENTIAL Routine 01/26/2025 5:52 AM EST PROTHROMBIN TIME WITH INR Routine 01/26/2025 5:52 AM EST MAGNESIUM Routine 01/26/2025 5:52 AM EST HEPATIC FUNCTION PANEL Routine 5:52 AM EST BASIC METABOLIC PANEL Routine 01/26/2025 5:52 AM EST CBC AND DIFFERENTIAL Routine 01/26/2025 5:52 AM EST CBC WITH AUTO DIFFERENTIAL Routine 01/25/2025 5:49 AM EST MAGNESIUM Routine 01/25/2025 5:49 AM EST CBC AND DIFFERENTIAL Routine 01/25/2025 5:49 AM EST BASIC METABOLIC PANEL Routine 01/25/2025 5:49 AM EST PHOSPHORUS Routine 01/25/2025 5:[address] CERVICAL SPINE WO CONTRAST STAT 01/24/2025 10:26 PM EST CULTURE URINE Routine 01/24/2025 10:08 PM EST LACTATE STAT 01/24/2025 10:02 PM EST US ABDOMEN LIMITED STAT 01/24/2025 9: [address] HEAD WO CONTRAST STAT 01/24/2025 8 :29 PM EST POC , URINE DIAGNOSTIC STAT 01/24/2025 8:[address] ABDOMEN PELVIS WO CONTRAST STAT 01/24/2025 7:38 PM EST BUPRENORPHINE SCREEN, URINE Add-On 01/24/2025 6:33 PM EST SODIUM, URINE, RANDOM STAT Add-on 01/24/2025 6:33 PM EST PROTEIN AND CREATININE WITH RATIO, URINE STAT Add-on 01/24/2025 6:33 PM EST URINALYSIS WITH REFLEX MICROSCOPIC STAT 01/24/2025 6:33 PM EST HCG QUALITATIVE, URINE STAT 6:33 PM EST URINALYSIS WITH REFLEX MICROSCOPIC STAT 01/24/2025 6:33 PM EST METHADONE SCREEN, URINE STAT 01/24/2025 6:33 PM EST DRUG ABUSE SCREEN 8A PANEL, URINE STAT 01/24/2025 6:33 PM EST LACTATE DEHYDROGENASE Add-On 01/24/2025 6:11 PM EST CREATINE KINASE Add-On 01/24/2025 6:11 PM EST CBC WITH AUTO DIFFERENTIAL STAT 01/24/2025 6:11 PM EST HCG, SERUM, QUALITATIVE STAT 01/24/2025 6:11 PM EST PROLACTIN STAT 01/24/2025 6:11 PM EST TROPONIN I HIGH SENSITIVITY STAT 01/24/2025 6:11 PM EST B-TYPE NATRIURETIC PEPTIDE STAT 01/24/2025 6:11 PM EST BASIC METABOLIC PANEL STAT 01/24/2025 6:11 PM EST ETHANOL STAT 01/24/2025 6:11 PM EST ACTIVATED PARTIAL THROMBOPLASTIN TIME STAT 01/24/2025 6:11 PM EST PROTHROMBIN TIME WITH INR STAT 01/24/2025 6:11 PM EST HEPATIC FUNCTION PANEL STAT 6:11 PM EST LACTATE STAT 01/24/2025 6:11 PM EST LIPASE STAT 01/24/2025 6:11 PM EST MAGNESIUM STAT 01/24/2025 6:11 PM EST CBC AND DIFFERENTIAL STAT 01/24/2025 6:11 PM EST LIPID PANEL WITH REFLEX TO DIRECT LDL Add-On 10/08/2024 5:08 AM EDT from Last 3 Months or Most Recently Relevant to Health Maintenance Results * (ABNORMAL) Complete blood count (01/27/2025 5:39 AM EST) [facility] WBC 4.5(L) 4.8 - 10.8 K/mcL LAB HEMETOLOGY METHOD 01/27/2025 6:58 AM EST [facility] RBC 3.00(L) 3.80 - 4.80 M/mcL LAB HEMETOLOGY METHOD 01/27/2025 6:58 AM [facility] Hemoglobin 10.1(L) 11.5 - 16.0 g/dL LAB HEMETOLOGY METHOD 01/27/2025 6:58 AM [facility] Hematocrit 28.3(L) 35.0 - 47.0 % LAB HEMETOLOGY METHOD 01/27/2025 6:58 AM [facility] MCV 95.9 79.0 - 98.0 FL LAB HEMETOLOGY METHOD 01/27/2025 6:58 AM [facility] MCH 34.2(H) 27.0 - 32.0 pcg LAB HEMETOLOGY METHOD 01/27/2025 6:58 AM [facility] MCHC 35.7 32.0 - 37.0 g/dL LAB HEMETOLOGY METHOD 01/27/2025 6:58 AM [facility] RDW 14.4 11.0 - 15.0 % LAB HEMETOLOGY METHOD 01/27/2025 6:58 AM [facility] Platelets 61(L) 130 - 400 K/mcL LAB HEMETOLOGY METHOD 01/27/2025 6:58 AM [facility] MPV 11.8(H) 7.0 - 11.0 FL LAB HEMETOLOGY METHOD 01/27/2025 6:58 AM [facility] NRBC 0.0 <1.0 % LAB HEMETOLOGY METHOD 01/27/2025 6:58 AM [facility] NRBC Absolute 0.00 <0.10 K/mcL LAB HEMETOLOGY METHOD 01/27/2025 6:58 AM [facility] Blood Venous blood specimen / Unknown Venipuncture / Unknown 01/27/2025 5:39 AM EST 01/27/2025 6:26 AM EST us Shirlene Hendrix MD LAB BLOOD ORDERABLES Final Resul t Performing Organization Address City/[facility]/ZIP Co de Phone Number [facility] [address] [place] [address], [place] [phone] * Phosphorus (01/27/2025 5:39 AM EST) Only the most recent of2 resultswithin the time period is included. Phosphorus 2.8 2.5 - 4.5 mg/dL 01/27/2025 7:30 AM EST [facility] Blood Venous blood specimen / Unknown Venipuncture / Unknown 01/27/2025 5:39 AM EST 01/27/2025 6:25 AM EST us Shirlene Hendrix MD LAB BLOOD ORDERABLES Final Resul t Performing Organization Address [facility] de Phone Number [facility] [address] [place] [address], [place] [phone] * (ABNORMAL) Magnesium (01/27/2025 5:39 AM EST) Only the most recent of4 resultswithin the time period is included. Magnesium 1.8(L) 1.9 - 2.6 mg/dL 01/27/2025 7:27 AM EST [facility] Blood Venous blood specimen / Unknown Venipuncture / Unknown 01/27/2025 5:39 AM EST 01/27/2025 6:25 AM EST us Shirlene Hendrix MD LAB BLOOD ORDERABLES Final Resul t Performing Organization Address City/[facility] Co de Phone Number [facility] [address] [place] [address], [place] [phone] * (ABNORMAL) Basic metabolic panel (01/27/2025 5:39 AM EST) Only the most recent of4 resultswithin the time period is included. Sodium 137 133 - 145 mmol/L 01/27/2025 7:27 AM [facility] Potassium 3.6 3.5 - 5.5 mmol/L 01/27/2025 7:27 AM [facility] Chloride 100 96 - 110 mmol/L 01/27/2025 7:27 AM [facility] CO2 33(H) 21 - 32 mmol/L 01/27/2025 7:27 AM [facility] Anion Gap 4 3 - 11 01/27/2025 7:27 AM [facility] Glucose 89 70 - 100 mg/dL 01/27/2025 7:27 AM [facility] BUN 10 5 - 25 mg/dL 01/27/2025 7:27 AM [facility] Creatinine 0.76 0.50 - 1.10 mg/dL 01/27/2025 7:27 AM [facility] eGFR 98 >=60 mL/min/1. 73m2 01/27/2025 7:27 AM [facility] Comment:Calculation based on the Chronic Kidney Disease Epidemiology Collaboration (CKD-EPI) equation refit without adjustment for race. BUN/Creatinine Ratio 13.2 01/27/2025 7:27 AM [facility] Calcium 9.3 8.5 - 10.5 mg/dL 01/27/2025 7:27 AM [facility] Blood Venous blood specimen / Unknown Venipuncture / Unknown 01/27/2025 5:39 AM EST 01/27/2025 6:25 AM EST us Shirlene Hendrix MD LAB BLOOD ORDERABLES Final Resul t [facility] [address] [place] [address], * (ABNORMAL) CBC auto differential (01/26/2025 5:52 AM EST) Only the most recent of3 resultswithin the time period is included. [facility] Signature WBC 4.3(L) 4.8 - 10.8 K/mcL LAB HEMETOLOGY METHOD 01/26/2025 6:36 AM [facility] RBC 2.80(L) 3.80 - 4.80 M/mcL LAB HEMETOLOGY METHOD 01/26/2025 6:36 AM [facility] Hemoglobin 9.5(L) 11.5 - 16.0 g/dL LAB HEMETOLOGY METHOD 01/26/2025 6:36 AM [facility] Hematocrit 27.6(L) 35.0 - 47.0 % LAB HEMETOLOGY METHOD 01/26/2025 6:36 AM [facility] MCV 97.2 79.0 - 98.0 FL LAB HEMETOLOGY METHOD 01/26/2025 6:36 AM [facility] MCH 33.5(H) 27.0 - 32.0 pcg LAB HEMETOLOGY METHOD 01/26/2025 6:36 AM [facility] MCHC 34.4 32.0 - 37.0 g/dL LAB HEMETOLOGY METHOD 01/26/2025 6:36 AM [facility] RDW 14.3 11.0 - 15.0 % LAB HEMETOLOGY METHOD 01/26/2025 6:36 AM [facility] Platelets 37(L) 130 - 400 K/mcL LAB HEMETOLOGY METHOD 01/26/2025 6:36 AM [facility] MPV 12.7(H) 7.0 - 11.0 FL LAB HEMETOLOGY METHOD 01/26/2025 6:36 AM [facility] NRBC 0.0 <1.0 % LAB HEMETOLOGY METHOD 01/26/2025 6:36 AM [facility] NRBC Absolute 0.00 <0.10 K/mcL LAB HEMETOLOGY METHOD 01/26/2025 6:36 AM [facility] Neutrophils Relative 54.2 % LAB HEMETOLOGY METHOD 01/26/2025 6:36 AM [facility] Lymphocytes Relative 30.5 % LAB HEMETOLOGY METHOD 01/26/2025 6:36 AM [facility] Monocytes Relative 7.7 % LAB HEMETOLOGY METHOD 01/26/2025 6:36 AM [facility] Eosinophils Relative 5.9 % LAB HEMETOLOGY METHOD 01/26/2025 6:36 AM [facility] Basophils Relative 1.2 % LAB HEMETOLOGY METHOD 01/26/2025 6:36 AM [facility] Immature Granulocytes Relative 0.5 % LAB HEMETOLOGY METHOD 01/26/2025 6:36 AM [facility] Neutrophils Absolute 2.31 1.50 - 7.00 K/mcL LAB HEMETOLOGY METHOD 01/26/2025 6:36 AM [facility] Lymphocytes Absolute 1.30 1.00 - 5.00 K/mcL LAB HEMETOLOGY METHOD 01/26/2025 6:36 AM [facility] Monocytes Absolute 0.33 0.20 - 1.00 K/mcL LAB HEMETOLOGY METHOD 01/26/2025 6:36 AM [facility] Eosinophils Absolute 0.25 0.00 - 0.50 K/mcL LAB HEMETOLOGY METHOD 01/26/2025 6:36 AM [facility] Basophils Absolute 0.05 0.00 - 0.20 K/mcL LAB HEMETOLOGY METHOD 01/26/2025 6:36 AM [facility] Immature Granulocytes Absolute 0.02 0.00 - 0.03 K/mcL LAB HEMETOLOGY METHOD 01/26/2025 6:36 AM EST [facility] Blood Venous blood specimen / Unknown Venipuncture / Unknown 01/26/2025 5:52 AM EST 01/26/2025 6:23 AM EST Veda Haley MD LAB BLOOD ORDERABLES Final Res ult Performing Organization Address [facility]/ZIP Co de Phone Number [facility] [address] [place] [address], [place] [phone] * Prothrombin time with INR (01/26/2025 5:52 AM EST) Only the most recent of2 resultswithin the time period is included. [facility] Protime 11.5 10.6 - 13.9 sec LAB COAGULATION METHOD 01/26/2025 6:47 AM [facility] INR 0.9 LAB COAGULATION METHOD 01/26/2025 6:47 AM [facility] Blood Venous blood specimen / Unknown Venipuncture / Unknown 01/26/2025 5:52 AM EST 01/26/2025 6:22 AM EST Veda Haley MD LAB BLOOD ORDERABLES Final Res ult Performing Organization Address [facility] Co de Phone Number [facility] [address] [place] [address], [place] [phone] * (ABNORMAL) Hepatic function panel (01/26/2025 5:52 AM EST) Only the most recent of2 resultswithin the time period is included. Pathologist [facility] Total Protein 5.3(L) 6.0 - 8.0 g/dL 01/26/2025 8:29 AM [facility] Albumin 3.2 3.2 - 5.0 g/dL 01/26/2025 8:29 AM [facility] Total Bilirubin 0.5 0.0 - 1.4 mg/dL 01/26/2025 8:29 AM EST [facility] Bilirubin, Direct 0.3 0.0 - 0.3 mg/dL 01/26/2025 8:29 AM EST [facility] Bilirubin, Indirect 0.2 0.0 - 1.1 mg/dL 01/26/2025 8:29 AM [facility] ALT (SGPT) 26 10 - 60 unit/L 01/26/2025 8:29 AM [facility] AST (SGOT) 87(H) 10 - 42 unit/L 01/26/2025 8:29 AM [facility] Alkaline Phosphatase 113 42 - 121 unit/L 01/26/2025 8:29 AM [facility] Blood Venous blood specimen / Unknown Venipuncture / Unknown 01/26/2025 5:52 AM EST 01/26/2025 6:22 AM EST us Veda Haley MD LAB BLOOD ORDERABLES Final Res ult [facility] [address] [place] [address], * CT Cervical Spine wo Contrast (01/24/2025 10:26 PM EST) Anatomical Region Laterality Modality Spine, C-spine Computed Tomogra phy 01/24/2025 10:4 7 PM EST Impressions 01/24/2025 10:47 PM EST No acute fracture. This document has been electronically signed by: Festus Shipley MD on 01/24/2025 22:47:03 Narrative 01/24/2025 10:47 PM EST INDICATION: accidental fall CT cervical spine without contrast Comparison: CT - CT C SPINE WO CONTRAST - 10/04/24 05:24 EDT Findings: Slight convex right curvature. Straightening of cervical lordosis. Minimal degenerative changes with small marginal osteophytes. Moderate foraminal stenosis left C5-C6 level due to uncovertebral joint hypertrophy. No focal disc protrusions. No significant stenotic disease otherwise. No acute fractures or dislocations. No acute findings on limited view of the intracranial contents. Soft tissues of the neck are normal. No consolidation or effusion at the lung apices. Procedure Note Festus Shipley MD - 01/24/2025 INDICATION: accidental fall CT cervical spine without contrast Comparison: CT - CT C SPINE WO CONTRAST - 10/04/24 05:24 EDT Findings: Slight convex right curvature. Straightening of cervical lordosis. Minimal degenerative changes with small marginal osteophytes. Moderate foraminal stenosis left C5-C6 level due to uncovertebral joint hypertrophy. No focal disc protrusions. No significant stenotic disease otherwise. No acute fractures or dislocations. No acute findings on limited view of the intracranial contents. Soft tissues of the neck are normal. No consolidation or effusion at the lung apices. IMPRESSION: No acute fracture. This document has been electronically signed by: Festus Jefferson MD on 01/24/2025 22:47:03 Freddy Ferrell MD IM CT PROCEDURES Final Res ult * (ABNORMAL) Culture urine (01/24/2025 10:08 PM EST) Culture, Urine >=100,000 CFU/mL Escherichia coli(A) MARCIAL 01/27/2025 11:46 AM EST [facility] Urine Urine specimen obtained by clean catch procedure / Unknown Non-blood Collection / Unknown 01/24/2025 10:08 PM EST 01/24/2025 10:08 PM EST Narrative Organism Antibiotic Method Susceptibility Escherichia coli Amoxicillin/Clavulanate MARCIAL 4 ug/ml: Susceptible Escherichia coli Ampicillin/Sulbactam MARCIAL 16 ug/ml: Intermediate Escherichia coli Piperacillin/Tazobactam MARCIAL <=4 ug/ml: Susceptible Escherichia coli Cefazolin (Urine) MARCIAL 4 ug/ml: Susceptible Escherichia coli Cefoxitin MARCIAL <=4 ug/ml: Susceptible Escherichia coli Ceftazidime MARCIAL <=0.5 ug/ml: Susceptible Escherichia coli Ceftriaxone MARCIAL <=0.25 ug/ml: Susceptible Escherichia coli Cefepime MARCIAL <=0.12 ug/ml: Susceptible Escherichia coli Meropenem MARCIAL <=0.25 ug/ml: Susceptible Escherichia coli Amikacin MARCIAL 4 ug/ml: Susceptible Escherichia coli Gentamicin MARCIAL <=1 ug/ml: Susceptible Escherichia coli Ciprofloxacin MARCIAL <=0.06 ug/ml: Susceptible Escherichia coli Levofloxacin MARCIAL <=0.12 ug/ml: Susceptible Escherichia coli Nitrofurantoin MARCIAL <=16 ug/ml: Susceptible Escherichia coli Trimethoprim/Sulfamethoxazole MARCIAL <=20 ug/ml: Susceptible Freddy Ferrell MD LAB MICROBIOLOGY - GENERAL ORDERABLES Final Result Performing Organization Address [facility] Co de Phone Number [facility] [address] [place] [address], [place] [phone] * Lactate (01/24/2025 10:02 PM EST) Only the most recent of2 resultswithin the time period is included. Lactate 2.0 0.4 - 2.0 mmol/L 01/24/2025 10:29 PM EST [facility] Blood Venous blood specimen / Unknown Venipuncture / Unknown 01/24/2025 10:02 PM EST 01/24/2025 10:02 PM EST Freddy Ferrell MD LAB BLOOD ORDERABLES Final Result Performing Organization Address [facility] de Phone Number [facility] [address] [place] [address], [place] [phone] * US Abdomen Limited (01/24/2025 9:32 PM EST) Anatomical Region Laterality Modality Body Ultrasound 01/24/2025 10:1 5 PM EST Impressions 01/24/2025 10:15 PM EST Fatty hepatomegaly. This document has been electronically signed by: Festus Shipley MD on 01/24/2025 22:15:23 Narrative 01/24/2025 10:15 PM EST INDICATION: RUQ pain, cholecystitis suspected US abdomen limited Comparison: CT - CT ABD PEL WO CONTRAST - 01/24/25 19:33 EST Findings: Pancreas obscured by bowel gas. Inferior vena cava normal caliber. Echogenic attenuating liver parenchyma. Right liver length incompletely included, greater than 16.5 cm. There is no intrahepatic bile duct dilatation. The common duct is 4 mm in diameter. The gallbladder is normal. There is no sonographic Zee sign. The main portal vein is antegrade. Right kidney unremarkable, 11.3 cm in length. No ascites. Procedure Note Festus Shipley MD - 01/24/2025 INDICATION: RUQ pain, cholecystitis suspected US abdomen limited Comparison: CT - CT ABD PEL WO CONTRAST - 01/24/25 19:33 EST Findings: Pancreas obscured by bowel gas. Inferior vena cava normal caliber. Echogenic attenuating liver parenchyma. Right liver length incompletely included, greater than 16.5 cm. There is no intrahepatic bile duct dilatation. The common duct is 4 mm in diameter. The gallbladder is normal. There is no sonographic Zee sign. The main portal vein is antegrade. Right kidney unremarkable, 11.3 cm in length. No ascites. IMPRESSION: Fatty hepatomegaly. This document has been electronically signed by: Festus Jefferson MD on 01/24/2025 22:15:23 us Freddy Ferrell MD IMG US PROCEDURES Final Res ult * CT Head wo Contrast (01/24/2025 8:29 PM EST) Anatomical Region Laterality Modality Head and Neck Computed Tomogra phy 01/24/2025 9:15 PM EST Impressions 01/24/2025 9:15 PM EST 1. No acute intracranial findings. 2. Chronic fracture deformity of the left lamina papyracea. This document has been electronically signed by: Ranjit Dejesus MD on 01/24/2025 21:15:16 Narrative 01/24/2025 9:15 PM EST INDICATION: seziure CT head without contrast Comparison: CT - CT HEAD WO CONTRAST - 10/04/24 05:24 EDT Findings: No intra-axial mass, midline shift, hydrocephalus, or acute hemorrhage. No significant atrophy-like change or white matter disease. The visualized paranasal sinuses and mastoid air cells are normal. The orbits are within normal limits. Chronic fracture deformity of the left lamina papyracea. Procedure Note Ranjit Dejesus - 01/24/2025 INDICATION: seziure CT head without contrast Comparison: CT - CT HEAD WO CONTRAST - 10/04/24 05:24 EDT Findings: No intra-axial mass, midline shift, hydrocephalus, or acute hemorrhage. No significant atrophy-like change or white matter disease. The visualized paranasal sinuses and mastoid air cells are normal. The orbits are within normal limits. Chronic fracture deformity of the left lamina papyracea. IMPRESSION: 1. No acute intracranial findings. 2. Chronic fracture deformity of the left lamina papyracea. This document has been electronically signed by: Ranjit Dejesus MD on 01/24/2025 21:15:16 Vasiliy Ku MD IMG CT PROCEDURES Final Res ult * POC , urine manually resulted (01/24/2025 8:19 PM EST) HCG, Ur POC Negative Negative POC hCG Int QC Pass? Yes Yes Urine Urine specimen obtained by clean catch procedure / Unknown 01/24/2025 8:19 PM EST Wisam Aguirre MD POINT OF CARE TEST ENTER/ EDIT ORDERABLES Final Result * CT Abdomen Pelvis wo Contrast (01/24/2025 7:38 PM EST) Anatomical Region Laterality Modality Body Computed Tomogra phy 01/24/2025 8:39 PM EST Impressions 01/24/2025 8:39 PM EST 1. No acute abdominopelvic findings. 2. Status post left nephrectomy. 3. Hepatomegaly and hepatic steatosis. 4. Low-grade compression fractures of the L3 and L5 vertebral bodies, likely chronic. Minimal 2 mm retropulsion of the fractured L5 vertebral body This document has been electronically signed by: Ranjit Dejesus MD on 01/24/2025 20:39:10 Narrative 01/24/2025 8:39 PM EST INDICATION: Abd pain, unspecified CT abdomen and pelvis without contrast Comparison: None provided Findings: The lung bases are clear. Prior left total nephrectomy. Hepatomegaly and hepatic steatosis. Other solid organs are unremarkable. No bowel obstruction, pneumoperitoneum, or pneumatosis. Normal appendix. Pelvic contents unremarkable. Low-grade compression fractures of the L3 and L5 vertebral bodies, likely chronic. Minimal 2 mm retropulsion of the fractured L5 vertebral body Procedure Note Ranjit Dejesus - 01/24/2025 INDICATION: Abd pain, unspecified CT abdomen and pelvis without contrast Comparison: None provided Findings: The lung bases are clear. Prior left total nephrectomy. Hepatomegaly and hepatic steatosis. Other solid organs are unremarkable. No bowel obstruction, pneumoperitoneum, or pneumatosis. Normal appendix. Pelvic contents unremarkable. Low-grade compression fractures of the L3 and L5 vertebral bodies,likely chronic. Minimal 2 mm retropulsion of the fractured L5 vertebral body IMPRESSION: 1. No acute abdominopelvic findings. 2. Status post left nephrectomy. 3. Hepatomegaly and hepatic steatosis. 4. Low-grade compression fractures of the L3 and L5 vertebral bodies, likely chronic. Minimal 2 mm retropulsion of the fractured L5 vertebral body This document has been electronically signed by: Ranjit Dejesus MD on 01/24/2025 20:39:10 Vasiliy Ku MD [facility] CT PROCEDURES Final Res ult * (ABNORMAL) Urinalysis with reflex microscopic (01/24/2025 6:33 PM EST) Specific Anderson Urine 1.027 1.003 - 1.030 LAB URINALYSIS - AUTOMATED METHOD 01/24/2025 7:33 PM [facility] pH, Urine 5.5 5.0 - 8.0 pH LAB URINALYSIS - AUTOMATED METHOD 01/24/2025 7:33 PM [facility] Leukocytes, Urine Moderate(A) Negative LAB URINALYSIS - AUTOMATED METHOD 01/24/2025 7:33 PM [facility] Nitrite, Urine Positive(A) Negative LAB URINALYSIS - AUTOMATED METHOD 01/24/2025 7:33 PM [facility] Protein, Urine 300(A) <=Trace mg/dL LAB URINALYSIS - AUTOMATED METHOD 01/24/2025 7:33 PM [facility] Glucose, Urine Negative Negative mg/dL LAB URINALYSIS - AUTOMATED METHOD 01/24/2025 7:33 PM [facility] Ketones, Urine Trace(A) Negative mg/dL LAB URINALYSIS - AUTOMATED METHOD 01/24/2025 7:33 PM [facility] Urobilinogen , Urine 1.0 0.2 - 1.0 mg/dL LAB URINALYSIS - AUTOMATED METHOD 01/24/2025 7:33 PM [facility] Bilirubin, Urine Moderate(A) Negative LAB URINALYSIS - AUTOMATED METHOD 01/24/2025 7:33 PM [facility] Blood, Urine Trace(A) Negative LAB URINALYSIS - AUTOMATED METHOD 01/24/2025 7:33 PM [facility] RBC, Urine 4 0 - 4 /HPF 01/24/2025 7:33 PM [facility] WBC, Urine 20(H) 0 - 4 /HPF 01/24/2025 7:33 PM [facility] Squamous Epithelial, Urine 50 0 - 60 /LPF 01/24/2025 7:33 PM [facility] Bacteria, Urine Many(A) Negative /HPF 01/24/2025 7:33 PM [facility] Hyaline Casts, Urine 0 0 - 3 /LPF 01/24/2025 7:33 PM [facility] Urine Urine specimen obtained by clean catch procedure / Unknown Non-blood Collection / Unknown 01/24/2025 6:33 PM EST 01/24/2025 6:51 PM EST us Vasiliy Ku MD LAB URINE ORDERABLES Final Result [facility] [address] [place] [address], * (ABNORMAL) Drug abuse screen 8a panel, urine (01/24/2025 6:33 PM EST) [facility] Signature Amphetamine Screen, Ur Negative Negative 01/24/2025 7:23 PM [facility] Comment:Certain OTC medicati ons containing ephedrine, phenylephrine, pseudoephedrine and phenylpropanolamine can cause false positive results. Barbiturate Screen, Ur Negative Negative 01/24/2025 7:23 PM EST [facility] Benzodiazepine Screen, Ur Negative Negative 01/24/2025 7:23 PM [facility] Cocaine Screen, Ur Negative Negative 2024 7:23 PM [facility] Opiate Screen, Ur Negative Negative 025 7:23 PM [facility] Cannabinoid (THC) Screen, Ur Positive(A ) Negative 01/24/2025 7:23 PM [facility] Comment:Specimens from patie nts taking pantoprazole sodium (Protonix) have been shown to produce false positive results. Oxycodone Screen, Ur Negative Negative 12/28 7:23 PM [facility] Fentanyl, Ur Negative Negative 01/24/2025 7:23 PM [facility] Urine Urine specimen obtained by clean catch procedure / Unknown Non-blood Collection / Unknown 01/24/2025 6:33 PM EST 01/24/2025 6:51 PM EST [facility] - 01/24/2025 7:23 PM EST Assay cutoffs: Amphetamines 1000 ng/mL Barbiturates 200 ng/mL Benzodiazepines 200 ng/mL Cocaine 300 ng/mL Fentanyl 1 ng/mL Opiates 300 ng/mL Oxycodone 100 ng/mL THC 50 ng/mL Semi-quantitative assay for screening purposes only. Unconfirmed screening result should not be used for non-medical purposes. *ALTERNATE METHOD CONFIRMATION DONE UPON REQUEST ONLY* Vasiliy Ku MD LAB URINE ORDERABLES Final Result [facility] [address] [place] [address], [place] [phone] * (ABNORMAL) Buprenorphine screen, urine (01/24/2025 6:33 PM EST) Buprenorphine Screen Urine Positive( A) Negative 01/26/2025 8:57 AM EST [facility] Urine Urine specimen obtained by clean catch procedure / Unknown Non-blood Collection / Unknown 01/24/2025 6:33 PM EST 01/24/2025 6:51 PM EST Narrative [facility] - 01/26/2025 8:57 AM EST Assay cutoff 5 ng/mL Semi-quantitative assay for screening purposes only. Unconfirmed screening result should not be used for non-medical purposes. *ALTERNATE METHOD CONFIRMATION DONE UPON REQUEST ONLY* Christin De Paz DO LAB URINE ORDERABLES Final Resu lt Performing Organization Address City/[facility]/ZIP Co de Phone Number [facility] [address] [place] [address], [place] [phone] * Methadone, urine (01/24/2025 6:33 PM EST) Pathologist [facility] Methadone Screen, Urine Negative Negative 01/24/2025 7:22 PM EST [facility] Comment: Assay cutoff 300 ng/mL Semi-quantitative assay for screening purposes only. Unconfirmed screening result should not be used for non-medical purposes. *ALTERNATE METHOD CONFIRMATION DONE UPON REQUEST ONLY* Urine Urine specimen obtained by clean catch procedure / Unknown Non-blood Collection / Unknown 01/24/2025 6:33 PM EST 01/24/2025 6:51 PM EST Vasiliy Ku MD LAB URINE ORDERABLES Final Result [facility] [address] [place] [address], [place] [phone] * (ABNORMAL) Protein and creatinine with ratio, urine (01/24/2025 6:33 PM EST) [facility] Protein, Urine 397 mg/dL 01/24/2025 9:55 PM EST [facility] Comment:Results verified by repeat testing Prot/Creat, Ur 0.93(H) <=0.20 mg/mg creat 01/24/2025 9:55 PM EST [facility] Creatinine, Urine 429.0 mg/dL 01/24/2025 9:55 PM EST [facility] Comment:Results verified by repeat testing Urine Urine specimen obtained by clean catch procedure / Unknown Non-blood Collection / Unknown 01/24/2025 6:33 PM EST 01/24/2025 6:51 PM EST us Freddy Ferrell MD LAB URINE ORDERABLES Final Result [facility] [address] [place] [address], [place] [phone] * Sodium, urine, random (01/24/2025 6:33 PM EST) [facility] Sodium, Ur 12 mmol/L 01/24/2025 9:39 PM EST [facility] Urine Urine specimen obtained by clean catch procedure / Unknown Non-blood Collection / Unknown 01/24/2025 6:33 PM EST 01/24/2025 6:51 PM EST us Freddy Ferrell MD LAB URINE ORDERABLES Final Result [facility] [address] [place] [address], [place] [phone] * , Urine (01/24/2025 6:33 PM EST) [facility] Preg Test, Ur Negative Negative 01/24/2025 7:06 PM EST [facility] Urine Urine specimen obtained by clean catch procedure / Unknown Non-blood Collection / Unknown 01/24/2025 6:33 PM EST 01/24/2025 6:51 PM EST us Vasiliy Ku MD LAB URINE ORDERABLES Final Result [facility] [address] [place] [address], [place] [phone] * Troponin I High Sensitivity (01/24/2025 6:11 PM EST) [facility] High Sensitivity Troponin I 5 <=34 ng/L 01/24/2025 6:50 PM EST [facility] Blood Venous blood specimen / Unknown Venipuncture / Unknown 01/24/2025 6:11 PM EST 01/24/2025 6:17 PM EST us Vasiliy Ku MD LAB BLOOD ORDERABLES Final Result Performing Organization Address City/[facility]/ZIP Co de Phone Number [facility] [address] [place] [address], [place] [phone] * Prolactin (01/24/2025 6:11 PM EST) [facility] Prolactin 78.90 See Comment ng/mL 01/24/2025 6:55 PM EST [facility] Blood Venous blood specimen / Unknown Venipuncture / Unknown 01/24/2025 6:11 PM EST 01/24/2025 6:17 PM EST Narrative [facility] - 01/24/2025 6:55 PM EST Prolactin Female Reference Ranges (ng/mL): Non: 2.8 - 29.2 : 9.7 - >200.0 Postmenopausal: 1.8 - 20.3 us Vasiliy Ku MD LAB BLOOD ORDERABLES Final Result [facility] [address] [place] [address], [place] [phone] * APTT (01/24/2025 6:11 PM EST) [facility] aPTT 27.2 24.1 - 39.3 sec LAB COAGULATION METHOD 01/24/2025 6:34 PM EST [facility] Blood Venous blood specimen / Unknown Venipuncture / Unknown 01/24/2025 6:11 PM EST 01/24/2025 6:17 PM EST us Vasiliy Ku MD LAB BLOOD ORDERABLES Final Result Performing Organization Address [facility]/ZIP Co de Phone Number [facility] [address] [place] [address], [place] [phone] * hCG Qualitative (01/24/2025 6:11 PM EST) [facility] hCG Qual Negative Negative 01/24/2025 6:46 PM EST [facility] Blood Venous blood specimen / Unknown Venipuncture / Unknown 01/24/2025 6:11 PM EST 01/24/2025 6:17 PM EST us Vasiliy Ku MD LAB BLOOD ORDERABLES Final Result [facility] [address] [place] [address], [place] [phone] * B-Type Natriuretic Peptide (BNP) (01/24/2025 6:11 PM EST) [facility] BNP 40 <=100 pcg/mL 01/24/2025 6:52 PM EST [facility] Blood Venous blood specimen / Unknown Venipuncture / Unknown 01/24/2025 6:11 PM EST 01/24/2025 6:17 PM EST Narrative [facility] - 01/24/2025 6:52 PM EST Over the counter supplements containing high doses of biotin may interfere with this assay. If interference is suspected, patients shoud be retested after refraining from biotin supplements for 72 hours. Vasiliy Ku MD LAB BLOOD ORDERABLES Final Result Performing Organization Address [facility]/ZIP Co de Phone Number [facility] [address] [place] [address], [place] [phone] * (ABNORMAL) Lipase (01/24/2025 6:11 PM EST) Lipase 592(H) 12 - 53 unit/L 01/24/2025 6:53 PM EST [facility] Blood Venous blood specimen / Unknown Venipuncture / Unknown 01/24/2025 6:11 PM EST 01/24/2025 6:17 PM EST Vasiliy Ku MD LAB BLOOD ORDERABLES Final Result Performing Organization Address [facility] Co de Phone Number [facility] [address] [place] [address], [place] [phone] * (ABNORMAL) Lactate dehydrogenase (01/24/2025 6:11 PM EST) LDH 302(H) 120 - 246 unit/L 01/24/2025 9:47 PM EST [facility] Blood Venous blood specimen / Unknown Venipuncture / Unknown 01/24/2025 6:11 PM EST 01/24/2025 6:17 PM EST Freddy Ferrell MD LAB BLOOD ORDERABLES Final Result Performing Organization Address [facility] Co de Phone Number [facility] [address] [place] [address], [place] [phone] * Creatine kinase (01/24/2025 6:11 PM EST) Total CK 35 34 - 145 unit/L 01/24/2025 9:10 PM EST [facility] Blood Venous blood specimen / Unknown Venipuncture / Unknown 01/24/2025 6:11 PM EST 01/24/2025 6:17 PM EST Freddy Ferrell MD LAB BLOOD ORDERABLES Final Result Performing Organization Address City/[facility]/ZIP Co de Phone Number [facility] [address] [place] [address], [place] [phone] * Ethanol (01/24/2025 6:11 PM EST) Pathologist [facility] Ethanol Level <3 0 - 10 mg/dL 01/24/2025 6:56 PM EST [facility] Blood Venous blood specimen / Unknown Venipuncture / Unknown 01/24/2025 6:11 PM EST 01/24/2025 6:17 PM EST Vasiliy Ku MD LAB BLOOD ORDERABLES Final Result Performing Organization Address [facility]/ZIP Co de Phone Number [facility] [address] [place] [address], [place] [phone] * (ABNORMAL) Lipid panel with reflex to direct LDL (10/08/2024 5:08 AM EDT) Cholesterol 214(H) 0 - 200 mg/dL LAB CHEMISTRY METHOD 10/08/2024 2:48 PM EDT [facility] Triglycerides 186(H) 0 - 150 mg/dL LAB CHEMISTRY METHOD 10/08/2024 2:48 PM EDT [facility] HDL 42 >=40 mg/dL LAB CHEMISTRY METHOD 10/08/2024 2:48 PM EDT [facility] LDL Calculated 135(H) 0 - 100 mg/dL LAB CHEMISTRY METHOD 10/08/2024 2:48 PM EDT [facility] Comment:Estimated LDL Calcul ated using equation: Total cholesterol - HDL cholesterol - (Triglycerides/5) VLDL Cholesterol [place] 37.2 mg/dL LAB CHEMISTRY METHOD 10/08/2024 2:48 PM EDT [facility] Non HDL Chol. (LDL+VLDL) 172(H) <145 mg/dL LAB CHEMISTRY METHOD 10/08/2024 2:48 PM EDT [facility] Chol/HDL Ratio 5.1(H) 0.0 - 4.4 LAB CHEMISTRY METHOD 10/08/2024 2:48 PM EDT [facility] Blood Venous blood specimen / Unknown Venipuncture / Unknown 10/08/2024 5:08 AM EDT 10/08/2024 6:14 AM EDT Tiarra Christianson MD LAB BLOOD ORDERABLES Final Result [facility] [address] [place] [address], from Last 3 Months or Most Recently Relevant to Health Maintenance Insurance MEDICAID - [place] [employer] MEDICARE Advance Directives * Full Code - Default (Latest Code Status on File) Date Activated Date Inactivated Comments 01/24/2025 9:21 PM 01/27/2025 5:01 PM This is ord er is used when code status has not been discussed with the patient, or code status is otherwise unknown/unconfirmed To update the patient's code status, place a code status order. Do not modify or discontinue any currently active code status orders. * Full Code - Confirmed Date Activated Date Inactivated Comments 10/04/2024 12:44 PM 10/08/2024 8:[address] at[facility] was ascertained in the following way: Code status discussion: discussion with patient To update the patient's code status, place a code status order. Do not modify or discontinue any currently active code status orders. Care Teams Brain Wave Technician Relationship Specialty Start Date End Date Physician, No Pcp PCP - General 01/24/25
== END 2025-02-09 15:54 | disposition home or self-care (01) ==
LOC: HO.HMCH 14:03
DX: R56.9 Unspecified convulsions (principal); F31.9 Bipolar disorder, unspecified; F11.11 Opioid abuse, in remission; F10.20 Alcohol dependence, uncomplicated; F32.A Depression, unspecified; F41.9 Anxiety disorder, unspecified; F43.10 Post-traumatic stress disorder, unspecified; E78.5 Hyperlipidemia, unspecified; K76.0 Fatty (change of) liver, not elsewhere classified; G47.00 Insomnia, unspecified; M54.9 Dorsalgia, unspecified

== ENCOUNTER → 2025-02-09 14:02 | Outpatient (BNVA) | payer MEDICARE, MEDICAID, SELFPAY | DX: Z00.00 Encounter for general adult medical examination without abnormal findings (principal); R41.9 Unspecified symptoms and signs involving cognitive functions and awareness; F31.9 Bipolar disorder, unspecified; F43.10 Post-traumatic stress disorder, unspecified; F11.11 Opioid abuse, in remission; F10.20 Alcohol dependence, uncomplicated; E78.5 Hyperlipidemia, unspecified; K76.0 Fatty (change of) liver, not elsewhere classified; R56.9 Unspecified convulsions; G47.00 Insomnia, unspecified; M54.9 Dorsalgia, unspecified | CPT/HCPCS: 99212 ==